=== PATIENT | male | born 1955 | race Caucasian/White ===

== ENCOUNTER 2020-10-25 14:10 | Inpatient (IN) ==
[2020-10-25] MEDS ORDERED: DEXAMETHASONE SOD INJ 10 MG/ML VIAL IV ONE (14:37)
--- NOTE | 2020-10-25 15:09 | XRay Report ---
SINGLE VIEW CHEST CLINICAL HISTORY: Hypoxia. Covid. FINDINGS: An AP, portable, upright chest radiograph is compared to study dated 11/09/2013. The heart i s enlarged. Interstitial airspace consolidation is seen throughout both lungs. No large pleural effus ion or pneumothorax is seen. The bony thorax is grossly intact. IMPRESSION: Interstitial airspace consolidation is seen throughout both lungs. This is consistent wit h the reported history of a viral pneumonia. Clinical correlation will be required and radiographic f ollow-up to resolution is recommended. ACT 112: Negative or not required by law. Electronically signed by: Kevyn Rodriguez M.D. 10/25/2020 3:08 PM
[2020-10-25 15:30] LABS: Basophils # (auto) 0.01 K/uL (0-0.2); Basophils % (auto) 0.1 %; Hematocrit (blood only) 46.8 % (42-52); Hemoglobin 16.2 g/dL (14.0-18.0); Immature Granulocytes # (auto) 0.09 K/uL (0.00-0.02); Immature Granulocytes % (auto) 1.1 %; Lymphocytes % (auto) 14.2 %; Mean Corpuscular Hemoglobin 30.9 pg (25-34); Mean Corpuscular Hgb Conc 34.6 g/dL (32-36); Mean Corpuscular Volume 89.1 fL (80-100); Mean Platelet Volume 10.8 fL (7.4-10.4); Monocytes # (auto) 1.32 K/uL (0.11-0.59); Monocytes % (auto) 15.6 %; Neutrophils # (auto) 5.86 K/uL (1.4-6.5); Platelet Count 218 K/uL (130-400); RDW Coefficient of Variation 15.2 % (11.5-14.5); RDW Standard Deviation 49.7 fL (36.4-46.3); Red Blood Count 5.25 M/uL (4.7-6.1); White Blood Count 8.48 K/uL (4.8-10.8)
[2020-10-25 15:33] LABS: Base Excess VBG 2.7 mEq/L; Oxygen Saturation VBG 63.4 %; pH VBG 7.38 (7.36-7.41)
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
[2020-10-25 15:49] LABS: Alanine Aminotransferase 55 U/L (12-78); Albumin Level 2.8 gm/dl (3.4-5.0); Aspartate Aminotransferase 58 U/L (15-37); Blood Urea Nitrogen 13 mg/dl (7-18); C Reactive Protein 9.24 mg/dl (0-0.29); Carbon Dioxide 26 mmol/L (21-32); Chloride 101 mmol/L (98-107); Creatinine Clr Calc Pharmacy 103.9 ml/min; D Dimer 1380 ug/L FEU (0-500); Est GFR (African American) 94.7; Est GFR (Non-African American) 81.7; Glucose 99 mg/dl (70-99); Potassium 3.8 mmol/L (3.5-5.1); Sodium 135 mmol/L (136-145)
[2020-10-25 15:53] LABS: Albumin Globulin Ratio 0.5 (0.9-2); Alkaline Phosphatase 67 U/L (45-117); Bilirubin,Total 0.6 mg/dl (0.2-1); Globulin 5.1 gm/dl (2.5-4.0); Total Protein 7.9 gm/dl (6.4-8.2); Troponin I < 0.015 ng/ml (0-0.045)
[2020-10-25] MEDS ORDERED: ALBUT/IPRATROP 3MG/0.5MG NEB 3 ML VIAL NEB ONE (15:57)
[2020-10-25] MEDS: MAGNESIUM SULFATE / D5W 1 GM/100 ML BAG IV SCH ×2 (16:13→16:14)
[2020-10-25 16:47] LABS: iSTAT Arterial Blood Gas HCO3 25 meg/L (19-24); iSTAT Arterial Blood Gas pCO2 40 mmHg (35-46); iSTAT Arterial Blood Gas pO2 73 mmHg (80-95); iSTAT Carbon Dioxide 26 mmol/L (24-31)
--- NOTE | 2020-10-25 17:06 | Electrocardiogram Report ---
Test Reason : Blood Pressure : / mmHG Vent. Rate : 100 BPM Atrial Rate : 100 BPM P-R Int : 156 ms QRS Dur : 142 ms QT Int : 380 ms P-R-T Axes : 053 036 020 degrees QTc Int : 490 ms Sinus rhythm with occasional Premature ventricular complexes Right bundle branch block Abnormal ECG When compared with ECG of 26-MAY-2019 05:46, Premature ventricular complexes are now Present Confirmed by Daniel Torres ([id number]) on 10/25/2020 5:06:03 PM Referred By: Confirmed By:Daniel Torres
[2020-10-25 17:10] LABS: Influenza A virus by PCR Negative (Neg); Influenza B virus by PCR Negative (Neg); RSV by PCR Negative (Neg)
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
[2020-10-25] MEDS ORDERED: FUROSEMIDE 40 MG/4 ML VIAL IV ONE (17:44)
[2020-10-25 17:53] LABS: SARS CoV2 RNA(COVID-19) InHosp POSITIVE (Negative)
[2020-10-25] MEDS ORDERED: DEXAMETHASONE SOD INJ 4 MG/ML VIAL IV STA (18:10)
[2020-10-25] MEDS ORDERED: FUROSEMIDE 40 MG/4 ML VIAL IV STA (18:11)
[2020-10-25] MEDS ORDERED: LORazepam 0.5 MG/1 ML VIAL IV STA (18:45)
[2020-10-25 18:57] LABS: iSTAT Arterial Blood Gas HCO3 26 meg/L (19-24); iSTAT Arterial Blood Gas pCO2 41 mmHg (35-46); iSTAT Arterial Blood Gas pO2 52 mmHg (80-95); iSTAT Carbon Dioxide 27 mmol/L (24-31); iSTAT Hematocrit 50 % (42-52); iSTAT Potassium 3.8 mmol/L (3.3-5.0); iSTAT Sodium 136 mmol/L (135-144)
[2020-10-25] MEDS ORDERED: ALBUT/IPRATROP 3MG/0.5MG NEB 3 ML VIAL NEB SCH (19:00)
[2020-10-25] MEDS ORDERED: OPTIRAY 320 125ml IV ONE (19:41)
--- NOTE | 2020-10-25 20:02 | CT Scan Report ---
CT angio chest PE protocol CT DOSE: 654.39 mGycm HISTORY: 65 years-old Male with covid+, hypoxic, elevated dimer. Acute hypoxia with shortness of br eath and elevated d-dimer level. COVID Positive. TECHNIQUE: Multiple CTA images of the chest were obtained after the intravenous administration of 116 ml Optiray 320. Coronal and sagittal MIPS were obtained from the axial data set and were submitted for review. All measurements were obtained according to NASCET criteria. A dose lowering technique w as utilized adhering to the principles of ALARA. COMPARISON: Chest radiograph of same day and also 11/09/2013 FINDINGS: CTA: The heart is normal in size. There is no pericardial effusion. Mild coronary artery calcifications. T here is no thoracic aortic aneurysm or dissection. There is patency of the imaged great vessels. Refl ux of contrast into the IVC and hepatic veins. Respiratory motion artifact limits evaluation of the s egmental and subsegmental branches of the pulmonary artery. No filling defects identified to suggest thromboembolic disease. CT CHEST: Unremarkable thyroid. Prominent and enlarged mediastinal and hilar lymph nodes are present with pretr acheal lymph nodes measuring up to 1.4 cm and right hilar lymph nodes measuring up to 1.6 cm. No pneu mothorax or pleural effusion. Moderate to severe emphysema. Patchy subpleural prominent groundglass a nd mild subpleural consolidative opacities are noted bilaterally in a mid and lower lung zone promine nt distribution. Bronchial wall thickening suggests associated bronchitis. The central airways appear patent. There are a few prominent periesophageal and gastrohepatic lymph nodes are nonspecific. Hepatic steat osis. Unremarkable soft tissues. The bones appear intact without acute fracture. IMPRESSION: 1. No evidence of pulmonary emboli. 2. Bilateral subpleural predominant groundglass and consolidative opacities suggest multifocal likely viral pneumonia. 3. Mediastinal and hilar adenopathy is likely reactive. 4. No pleural effusion. 5. Emphysema. 6. Hepatic steatosis. ACT 112: Negative or not required by law. The above report was generated using voice recognition software. It may contain grammatical, syntax o r spelling errors. Electronically signed by: Iraj Cardenas M.D. 10/25/2020 8:00 PM
[2020-10-25] MEDS ORDERED: POLYETHYLENE (MIRALAX) 17 GM PACK PO PRN (20:24)
[2020-10-25] MEDS ORDERED: ONDANSETRON INJ 2 MG/ML 2 ML VIAL IV PRN (20:24)
[2020-10-25] MEDS ORDERED: ICU PROTOCOL FOR HYPERGLYCEMIA PRN (20:24)
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
[2020-10-25] MEDS ORDERED: REMDESIVIR 200 MG in SODIUM CHLORIDE 0.9% 210 ML IV ONE (20:45)
[2020-10-25] MEDS ORDERED: PNEUMOCOCCAL ADMINISTRATION CHARGE ONE (20:51)
[2020-10-25] MEDS ORDERED: PNEUMOCOCCAL POLYSACCHARIDES 25 MCG/0.5 ML VIAL/SYR IM ONE (20:51)
[2020-10-25] MEDS ORDERED: ALBUT/IPRATROP 3MG/0.5MG NEB 3 ML VIAL NEB PRN (21:28)
[2020-10-25] MEDS ORDERED: POTASSIUM CHLORIDE 20 MEQ/15 ML UDC PO STA (21:29)
[2020-10-25] MEDS: NORMOSOL-R 1,000 ML IV SCH (21:31)
[2020-10-25] MEDS: ENOXAPARIN 80 MG/0.8 ML SYR SQ SCH (21:48)
[2020-10-25] MEDS ORDERED: SODIUM CHLORIDE 0.9% 10ML FLUSH IV SCH (22:45)
[2020-10-26 05:52] LABS: BUN Creatinine Ratio 15.5 (10-20); Calcium 8.2 mg/dl (8.5-10.1); Est GFR (African American) 105.5; Potassium 4.4 mmol/L (3.5-5.1)
[2020-10-26 06:08] LABS: Phosphorus 4.1 mg/dl (2.5-4.9); Thyroid Stimulating Hormone 1.64 uIu/ml (0.300-4.500)
--- NOTE | 2020-10-26 07:03 | Critical Care Progress Note ---
Date of Service October 26, 2020 Assessment & Plan (1) Admitted to intensive care unit: 65 y/o male w/ hx of COPD and YOBANY presents to the ICU evening of 10/25 for acute hypoxic respiratory failure from COVID-19 pneumonia because he is a low threshold for decompensation which would require intubation. Neuro - [facility] ICU: neg. No acute change from mental status baseline. Cardiac - NSR on monitor, no history of cardiac disease. Continue telemetry. Troponin negative, BNP within normal limits. 10/25 ECG cardiology interpretation: NSR 100 w/ occasional PVCs. RBBB. QTC 490. Compared to 05/2019, the PVCs are new. Respiratory - Acute hypoxic respiratory failure: Covid 19+, 8 to 9-day symptom onset. Initial PaO2 72 on high flow nasal cannula--> 57, so switched to BIPAP, initially at 16/10 70 FiO2. 10/26 0700: 20/8 80 FiO2, satting 93% (uptrended from 85% sat at since 0141). 10/25 POC ABG. 7.40/41/52/26 base excess 1.0. no ventilation issues per blood gas -per admission provider, CTA negative for PE, bilateral subpleural predominant groundglass and consolidative opacities suggest multifocal like viral pneumonia. Emphysema noted. -Nebs as needed -Continue with 6 mg IV dexamethasone daily regimen. -Patient encouraged to self prone as tolerated, will attempt later today -daily CXRs -vitamin C 500 mg BID -Strict I's and O's with goal of negative fluid balance. -Continuous monitoring on pulse ox, maintain oxygen saturation 88 to 92%. GI - 3/3 switched from NPO to clear liquids RENAL/LYTES - 3/3 bmp wnl. Na 135->138. K 3.8->4.4. Cr 0.98->0.89. A1C 6.9. Corrected Ca 9.2. Will replete electrolytes as needed Normosol at 50 mL/h while NPO s/p 40 mg IV lasix 3/2 - Strict I's and O's. Voiding. ENDO - No history of diabetes or thyroid disease ICU hyperglycemic protocol, SSI TSH 1.640 wnl HEME - 3/3 cbc wnl, continue routine monitoring 3/2 d dimer 1380H, likely 2/2 covid ID - COVID-19patient with 8 days of symptoms and COVID-19 PCR positive - will continue dexamethasone 6mg IV - as of 10/26, patient is 9 days since symptom onset. via shared-decision making after discussion of pros/cons w/ patient, will not be using remdesevir Influenza A and B and RSV negative MRSA screen neg 10/25 procalc 0.05, wnl. Blood cultures pending abx if spikes fever no sputum culture obtained because patient not producing; his cough is dry CT imaging more consistent with viral inflammation, and low suspicion for bacterial infection given normal WBC, afebrile. CRP (9.24H) and D-dimer elevated consistent with COVID-19 infection. LINES/IV ACCESS - Peripheral IVs DVT PROPHYLAXIS - SCDs, Lovenox 70 mg q12 CODE: full (2) Sleep apnea: (3) Acute respiratory failure with hypoxia: (4) Pneumonia due to COVID-19 virus: (5) COPD mixed type: Admission and Anticipated Discharge Date Admission Date: October 25, 2020 Supervising Physician Co-Signing Physician Notes Dr. Nguyễn was resident physician during care of patient. I separately evaluated patient for montoya portions of the history and the exam. I was present during the critical portion of medical decision making, and I discussed the case with the resident. I generally agree with the findings and plan. During my evaluation the patient was largely asymptomatic, he was short of breath when he would stand at the side of the bed and urinate. He is now agreeable with intubation should it be needed however he wants that to be the last option. Accordingly I believe if the patient is unable to tolerate eating due to exertional dyspnea that will be the clear clinical indication for intubation. I advised the patient that I would suggest intubation at this time however he prefers to continue with noninvasive therapies. I have personally spent 55 minutes of critical care time in the direct management of this patient. This is a life/limb threatening event. This includes time spent evaluating patient, direct bedside care, chart review, placing orders, interpretation of diagnostic studies, discussion with consultants, patient, and/or family members regarding treatment decisions, as well as other required patient management activities. This time is exclusive of all separately billable procedures, and teaching time and separate from and in addition to any other critical care service time. Subjective Per nurse and admission provider, patient was admitted to ICU last night after he did not tolerate high flow nasal cannula after going to [facility]. He was then placed on BiPAP and sent to ICU for further care. Patient has had 8-9 days of symptoms and tested covid +.Hx of HTN, HLD, anxiety, bipolar, YOBANY (noncompliant w/ cpap), and COPD (smoker and noncompliant / not taking inhalers). Patient instructed to self-prone as able, but this is limited by habitus and what appears to be fluid retention (has not been worked up for CHF). 09 update: patient tolerated hfnc for 15 min, but then desatted to 80s after he fell asleep. He was then switched to cpap 12 80%. 1000: I entered room and discussed w/ patient via shared decision making regarding use of remdesivir. He states his symptoms started 9 days ago, on 09/16. I explained the prox/cons of redemsivir and patient states that he does not want to receive it if it will not help. I reiterated that the clinical trials did not show mortality benefit and that there may be some benefit in terms of symptoms in some patients, but that we are limited by the current data available. He reaffirmed that he does not want the remdesivir. Review of Systems Review of Systems: Please see attending exam for ROS. I did not enter room because of covid airborne precautions. Constitutional: Denies fever, chills Eyes: Denies blurry vision, vision changes Cardiovascular: Denies Chest pain, palpitations Respiratory: Denies shortness of breath Gastrointestinal: Denies abdominal pain, nausea, vomiting Genitourinary: Denies dysuria Neurological: Denies headache, numbness, tingling, focal weakness Physical Exam Physical Exam: General: Grossly A&O. NAD. Cooperative. HEENT: Atraumatic, normocephalic. Pulm: Diffuse inspiratory crackles. Symmetrical chest rise. No respiratory distress. Wearing cpap mask. Cardiac: RRR, -mrg. Puffy appearance of ankles, but no pitting edema. Abdominal: Moderately distended, soft, and nontender to palpation. Results & Data Results & Data ([facility]) Vital Signs (Past 12 Hours) Vital Signs Temp Pulse Pulse Resp BP Pulse Ox 10/26/20 04:22 80 20 91 10/26/20 02:36 36.7 C 10/26/20 02:30 83 20 89 L 10/26/20 02:11 89 19 132/97 87 L 10/26/20 02:00 79 15 87 L 10/26/20 01:41 83 12 136/85 85 L 10/26/20 01:30 82 15 91 10/26/20 01:11 84 15 137/88 90 10/26/20 01:00 93 H 19 88 L 10/26/20 00:41 82 20 116/80 91 10/26/20 00:30 88 17 93 10/26/20 00:11 82 16 127/86 94 10/26/20 00:00 86 19 92 10/25/20 23:41 82 19 142/88 H 87 L 10/25/20 23:33 86 19 87 L 10/25/20 23:30 84 16 87 L 10/25/20 23:11 91 H 18 148/99 H 92 10/25/20 23:00 90 18 92 10/25/20 22:42 79 17 88 L 10/25/20 22:41 85 15 139/77 87 L 10/25/20 22:30 84 16 93 10/25/20 22:11 89 18 137/87 91 10/25/20 22:07 98 H 20 141/84 H 89 L 10/25/20 22:05 94 H 22 171/110 H 89 L 10/25/20 22:00 96 H 17 88 L 10/25/20 21:41 88 26 H 171/109 H 90 10/25/20 21:30 91 H 16 89 L 10/25/20 21:11 100 H 28 H 152/97 H 93 10/25/20 21:04 94 H 14 131/97 88 L 10/25/20 21:00 100 H 20 92 10/25/20 20:30 97 H 18 88 L 10/25/20 20:26 35.9 C L 99 H 25 H 90 10/25/20 20:24 98 H 10/25/20 20:15 97 H 22 147/92 H 90 10/25/20 20:11 98 H 26 H 147/92 H 90 10/25/20 20:05 101 H 22 92 10/25/20 19:05 102 H 22 92 10/25/20 19:00 102 H 32 H 120/81 86 L 10/25/20 18:30 103 H 29 H 134/76 88 L Resident Activity Tracking Resident Involvement: Resident Care Provided Care Provided: Adult Hospital Medicine
[2020-10-26 07:05] LABS: Basophils # (auto) 0.02 K/uL (0-0.2); Basophils % (auto) 0.3 %; Hemoglobin 16.4 g/dL (14.0-18.0); Immature Granulocytes # (auto) 0.09 K/uL (0.00-0.02); Immature Granulocytes % (auto) 1.2 %; Lymphocytes # (auto) 0.85 K/uL (1.2-3.4); Lymphocytes % (auto) 11.7 %; Mean Corpuscular Hemoglobin 30.8 pg (25-34); Mean Corpuscular Hgb Conc 33.5 g/dL (32-36); Mean Corpuscular Volume 91.9 fL (80-100); Mean Platelet Volume 10.8 fL (7.4-10.4); Monocytes # (auto) 1.06 K/uL (0.11-0.59); Monocytes % (auto) 14.6 %; Neutrophils # (auto) 5.23 K/uL (1.4-6.5); Neutrophils % (auto) 72.2 %; Nucleated RBC # (auto) 0.04 K/uL (0-0); Nucleated RBC % (auto) 0.5 %; Platelet Count 210 K/uL (130-400); RDW Coefficient of Variation 15.4 % (11.5-14.5); RDW Standard Deviation 51.8 fL (36.4-46.3); Red Blood Count 5.33 M/uL (4.7-6.1); White Blood Count 7.25 K/uL (4.8-10.8)
[2020-10-26 07:21] LABS: Estimated Average Glucose 151 mg/dl; Hemoglobin A1C 6.9 % (4.5-5.6)
[2020-10-26] MEDS: ENOXAPARIN 80 MG/0.8 ML SYR SQ SCH ×2 (08:03→20:28)
[2020-10-26] MEDS: dexAMETHasone 6 MG in SYRINGE 0 ML IV SCH (08:03)
[2020-10-26] MEDS ORDERED: GLUCAGON FOR INJ 1 MG VIAL IM PRN (10:00)
[2020-10-26] MEDS ORDERED: GLUCOSE 40% GEL 15 GM TUBE PO PRN (10:00)
[2020-10-26] MEDS ORDERED: DEXTROSE 50% 50 ML SYRINGE IV PRN (10:00)
[2020-10-26] MEDS ORDERED: GLUCOSE 10 TABS/TUBE PO PRN (10:00)
[2020-10-26] MEDS ORDERED: CARBOHYDRATES FOR HYPOGLYCEMIA PO PRN (10:00)
--- NOTE | 2020-10-26 10:16 | Hospitalist Progress Note ---
Date of Service October 26, 2020 Assessment & Plan (1) Pneumonia due to COVID-19 virus: Went to see his PCP for a Covid test and noted to have very low saturation and was sent in the emergency room COVID-19 test came back positive Remains very hypoxic and requiring high flow oxygen to maintain barely normal saturation Continue remdesivir and dexamethasone (2) Acute respiratory failure with hypoxia: Requiring high flow and BIPAP Has been requiring high flow oxygen to maintain saturation History of sleep apnea and not been compliant with any medications and/or CPAP (3) COPD exacerbation: History of COPD and is noncompliant Continues to smoke and has not been taking any medication We will continue with intravenous dexamethasone and nebulized bronchodilator (4) Sleep apnea: History of sleep apnea and is noncompliant with CPAP (5) Hearing deficit: Has hearing deficit DVT prophylaxis Lovenox subcu CODE STATUS Full Labs checked ROS-No Headache, No Visual Changes, No Nausea, No Vomiting, No Fever, No Chills, No Neck Pain or Stiffness, No Chest Pain, No Palpitations, + SOB, + HANSEN, + Cough, No Sputum, No Wheezing, No Abdominal Pain, No Diarrhea, No Hematemesis, No Hemoptysis, No Unexpected Weight Loss, No Flank pain, No Melena, No Hematochezia, No Frequency, No Urgency, No Burning, No Hematuria, No Rashes, No Diaphoresis. Appetite is Normal Physical Exam Gen-AAO x 3, NAD, Afebrile, obese Head-NCAT, EOMI, PERRLA, Anicteric Sclera, No Posterior Pharyngeal Erythema Neck-Supple, No JVD, No Thyromegaly, No Masses, No LAD, No Bruits Lungs-Clear to Auscultation Bilaterally, No Rales, No Rhonchi, No Wheezing, No Crepitus Chest-No S4, +S1, +S2, No S3, No Murmurs, No Rubs, No Gallops, No Ectopy Abdomen-Soft, Bowel Sounds Present, Non Tender, Non Distended, No Hepatomegaly, No Splenomegaly, No Palpable Masses, No Rebound, No Rigidity, No Guarding Musculoskeletal-Full Range of Motion Bilaterally, No CVAT Extremities-No Cyanosis, No Clubbing, No Edema Nuero-Cranial Nerves II-XII grossly intact, Motor WNL, DTRs WNL, Strength WNL, Non Focal Psych-Normal Mood Admission and Anticipated Discharge Date Admission Date: October 25, 2020 Results & Data Results & Data ([facility]) Vital Signs (Past 12 Hours) Vital Signs Temp Pulse Pulse Resp BP Pulse Ox 10/26/20 09:25 76 17 90 10/26/20 09:00 80 22 89 L 10/26/20 08:53 82 13 90 10/26/20 08:42 84 21 154/84 H 86 L 10/26/20 08:30 82 18 93 10/26/20 08:12 73 15 132/86 95 10/26/20 08:00 36.9 C 78 15 94 10/26/20 07:42 85 19 131/86 89 L 10/26/20 07:30 78 21 92 10/26/20 07:12 79 18 131/91 91 10/26/20 07:05 78 23 92 10/26/20 07:00 74 15 90 10/26/20 04:22 80 20 91 10/26/20 02:36 36.7 C 10/26/20 02:30 83 20 89 L 10/26/20 02:11 89 19 132/97 87 L 10/26/20 02:00 79 15 87 L 10/26/20 01:41 83 12 136/85 85 L 10/26/20 01:30 82 15 91 10/26/20 01:11 84 15 137/88 90 10/26/20 01:00 93 H 19 88 L 10/26/20 00:41 82 20 116/80 91 10/26/20 00:30 88 17 93 10/26/20 00:11 82 16 127/86 94 10/26/20 00:00 86 19 92 10/25/20 23:41 82 19 142/88 H 87 L 10/25/20 23:33 86 19 87 L 10/25/20 23:30 84 16 87 L 10/25/20 23:11 91 H 18 148/99 H 92 10/25/20 23:00 90 18 92 10/25/20 22:42 79 17 88 L 10/25/20 22:41 85 15 139/77 87 L 10/25/20 22:30 84 16 93 10/25/20 22:11 89 18 137/87 91
--- NOTE | 2020-10-26 12:51 | Billing Data ---
Date of Service October 26, 2020 Coding Level of Care Code Critical Care ea addt'l 30 min
[2020-10-26] MEDS: INSULIN ASPART 100 UNITS/ML 3 ML PEN SC SCH ×3 (12:52→20:27)
[2020-10-26] MEDS: NORMOSOL-R 1,000 ML IV SCH (16:02)
[2020-10-26] MEDS ORDERED: REMDESIVIR 100 MG in SODIUM CHLORIDE 0.9% 230 ML IV SCH (20:00)
[2020-10-26] MEDS: ASCORBIC ACID 500 MG TAB PO SCH (20:28)
[2020-10-27 06:05] LABS: Basophils # (auto) 0.01 K/uL (0-0.2); Basophils % (auto) 0.1 %; Eosinophils # (auto) 0.01 K/uL (0-0.5); Eosinophils % (auto) 0.1 %; Hematocrit (blood only) 48.5 % (42-52); Hemoglobin 16.2 g/dL (14.0-18.0); Immature Granulocytes # (auto) 0.08 K/uL (0.00-0.02); Immature Granulocytes % (auto) 0.9 %; Lymphocytes # (auto) 1.49 K/uL (1.2-3.4); Lymphocytes % (auto) 16.1 %; Mean Corpuscular Hemoglobin 30.8 pg (25-34); Mean Corpuscular Hgb Conc 33.4 g/dL (32-36); Mean Corpuscular Volume 92.2 fL (80-100); Monocytes # (auto) 1.05 K/uL (0.11-0.59); Monocytes % (auto) 11.4 %; Neutrophils # (auto) 6.59 K/uL (1.4-6.5); Neutrophils % (auto) 71.4 %; Platelet Count 197 K/uL (130-400); RDW Coefficient of Variation 15.4 % (11.5-14.5); Red Blood Count 5.26 M/uL (4.7-6.1); White Blood Count 9.23 K/uL (4.8-10.8)
[2020-10-27 06:35] LABS: BUN Creatinine Ratio 19.8 (10-20); Calcium 8.6 mg/dl (8.5-10.1); Creatinine Clr Calc Pharmacy 116.6 ml/min; Est GFR (African American) 106.5; Est GFR (Non-African American) 91.9; Magnesium 2.8 mg/dl (1.8-2.4); Potassium 4.4 mmol/L (3.5-5.1)
[2020-10-27 06:41] LABS: Phosphorus 2.8 mg/dl (2.5-4.9)
--- NOTE | 2020-10-27 06:41 | Hospitalist Progress Note ---
Date of Service October 27, 2020 Assessment & Plan (1) Pneumonia due to COVID-19 virus: Went to see his PCP for a Covid test and noted to have very low saturation and was sent in the emergency room COVID-19 test came back positive Continue remdesivir and dexamethasone (2) Acute respiratory failure with hypoxia: Requiring high flow while awake and BIPAP when asleep History of sleep apnea and not been compliant with any medications and/or CPAP (3) COPD exacerbation: History of COPD and is noncompliant Continues to smoke and has not been taking any medication We will continue with intravenous dexamethasone and nebulized bronchodilator (4) Sleep apnea: History of sleep apnea and is noncompliant with CPAP (5) Hearing deficit: Has hearing deficit DVT prophylaxis Lovenox subcu CODE STATUS Full Labs checked ROS-No Headache, No Visual Changes, No Nausea, No Vomiting, No Fever, No Chills, No Neck Pain or Stiffness, No Chest Pain, No Palpitations, + SOB, + HANSEN, + Cough, + Thick yellow Sputum, No Wheezing, No Abdominal Pain, No Diarrhea, No Hematemesis, No Hemoptysis, No Unexpected Weight Loss, No Flank pain, No Melena, No Hematochezia, No Frequency, No Urgency, No Burning, No Hematuria, No Rashes, No Diaphoresis. Appetite is Normal Physical Exam Gen-AAO x 3, NAD, Afebrile, obese Head-NCAT, EOMI, PERRLA, Anicteric Sclera, No Posterior Pharyngeal Erythema Neck-Supple, No JVD, No Thyromegaly, No Masses, No LAD, No Bruits Lungs-Clear to Auscultation Bilaterally, No Rales, No Rhonchi, No Wheezing, No Crepitus Chest-No S4, +S1, +S2, No S3, No Murmurs, No Rubs, No Gallops, No Ectopy Abdomen-Soft, Bowel Sounds Present, Non Tender, Non Distended, No Hepatomegaly, No Splenomegaly, No Palpable Masses, No Rebound, No Rigidity, No Guarding Musculoskeletal-Full Range of Motion Bilaterally, No CVAT Extremities-No Cyanosis, No Clubbing, No Edema Nuero-Cranial Nerves II-XII grossly intact, Motor WNL, DTRs WNL, Strength WNL, Non Focal Psych-Normal Mood Admission and Anticipated Discharge Date Admission Date: October 25, 2020 Results & Data Results & Data ([facility]) Vital Signs (Past 12 Hours) Vital Signs Temp Pulse Resp BP Pulse Ox 10/27/20 06:35 80 20 127/89 92 10/27/20 05:15 82 20 168/109 H 93 10/27/20 05:10 36.7 C 10/27/20 04:15 69 15 155/100 H 92 10/27/20 03:15 66 14 154/87 H 94 10/27/20 03:01 71 16 92 10/27/20 02:15 71 14 144/99 H 92 10/27/20 01:15 76 17 151/100 H 91 10/27/20 00:57 36.4 C L 10/27/20 00:15 71 15 143/94 H 92 10/27/20 00:00 67 10/26/20 23:15 74 15 144/93 H 94 10/26/20 23:10 70 18 93 10/26/20 22:15 71 16 146/102 H 93 10/26/20 21:15 79 18 132/86 92 10/26/20 21:07 36.4 C L 10/26/20 20:15 83 22 129/81 86 L 10/26/20 19:15 69 15 111/84 91 10/26/20 19:12 69 12 125/83 91 10/26/20 19:05 77 20 93
--- NOTE | 2020-10-27 07:55 | Billing Data ---
Date of Service October 27, 2020 Coding Level of Care Code Critical Care 1st - mins
--- NOTE | 2020-10-27 07:55 | Critical Care Progress Note ---
Date of Service October 27, 2020 Assessment & Plan (1) Admitted to intensive care unit: 65 y/o male w/ hx of COPD and YOBANY presents to the ICU evening of 10/25 for acute hypoxic respiratory failure from COVID-19 pneumonia because he is a low threshold for decompensation which would require intubation. Neuro - [facility] ICU: neg per Attending exam; patient is conversational and at mental baseline. Cardiac - NSR on monitor, no history of cardiac disease. Continue telemetry. Troponin negative, BNP within normal limits. 10/25 ECG cardiology interpretation: NSR 100 w/ occasional PVCs. RBBB. QTC 490. Compared to 05/2019, the PVCs are new. HTN: 10/26-10/27 overnight had some elevated BPs 140s-150s / 90s-100s. 1 spike to 168/109 Respiratory - Acute hypoxic respiratory failure: Covid 19+, 8 to 9-day symptom onset. Initial PaO2 72 on high flow nasal cannula--> 57, so switched to BIPAP, initially at 16/10 70 FiO2. 10/27 0836 on HFNC 100% O2. 10/25 POC ABG. 7.40/41/52/26 base excess 1.0. no ventilation issues per blood gas. 10/27 no new blood gas obtained. -per admission provider, CTA negative for PE, bilateral subpleural predominant groundglass and consolidative opacities suggest multifocal like viral pneumonia. Emphysema noted. -Nebs as needed -Continue with 6 mg IV dexamethasone daily regimen. -vitamin C 500 mg BID -Strict I's and O's with goal of negative fluid balance. -Continuous monitoring on pulse ox, maintain oxygen saturation 88 to 92%. GI - 10/26 switched from NPO to clear liquids RENAL/LYTES - -10/27 wbc 7.25->9.23. bmp wnl. Cr 0.87, stable. phos 4.1->2.8. Mg 3.0->2.8 Normosol at 50 mL/h while NPO - Strict I's and O's. Voiding. Is/Os 24 hours: 1.6L in 2L out. UOP 0.60 ml/kg/hr (voiding). cumulative 1.7L in, 3.2L out ENDO - No history of diabetes or thyroid disease ICU hyperglycemic protocol, SSI TSH 1.640 wnl HEME - 10/26 cbc wnl, continue routine monitoring 10/25 d dimer 1380H, likely 2/2 covid ID - COVID-19patient with 8 days of symptoms and COVID-19 PCR positive - will continue dexamethasone 6mg IV - as of 10/26, patient is 9 days since symptom onset. via shared-decision making after discussion of pros/cons w/ patient, will not be using remdesevir Influenza A and B and RSV negative. MRSA screen neg 10/25 procalc 0.05, wnl. 10/25 BC prelim NG 24 hrs - 10/27 cxr pending abx if spikes fever 10/26 no sputum culture obtained because patient not producing; his cough is dry CT imaging more consistent with viral inflammation, and low suspicion for shalom terial infection given normal WBC, afebrile. CRP (9.24H) and D-dimer elevated consistent with COVID-19 infection. LINES/IV ACCESS - Peripheral IVs DVT PROPHYLAXIS - SCDs, Lovenox 70 mg q12 CODE: full DISPO: continue ICU care (2) Sleep apnea: (3) Acute respiratory failure with hypoxia: (4) Pneumonia due to COVID-19 virus: (5) COPD mixed type: Admission and Anticipated Discharge Date Admission Date: October 25, 2020 Supervising Physician Co-Signing Physician Notes Dr. Nguyễn was resident physician during care of patient. I separately evaluated patient for montoya portions of the history and the exam. I was present during the critical portion of medical decision making, and I discussed the case with the resident. I generally agree with the findings and plan. Patient had no overnight events, still able to eat without being symptomatic. Tolerated CPAP overnight continue current therapies, patient is resolute in avoiding intubation unless absolutely necessary. Continue with negative pressure isolation given Covid positivity and continued symptomatology. Patient was discussed on multidisciplinary rounds. Patient remains critically ill. Subjective Patient tolerated cpap overnight. 18 85% (up from 12 100% around 0100). He was not proned. HE was switched to HFNC 100% O2 at ~0730. Hx obtained from overnight nurse. Resident did not enter room because of covid airborne isolation precautions. Per attending note, patient wants to avoid intubation as long as possible. Review of Systems Review of Systems: ROS limited because resident did not enter room because of covid airborne isolation precautions. Please see attending documentation. Physical Exam Physical Exam: Physical exam limited because resident did not enter room because of covid airborne isolation precautions. Please see attending docume ntation. Results & Data Results & Data ([facility]) Vital Signs (Past 12 Hours) Vital Signs Temp Pulse Resp BP Pulse Ox 10/27/20 06:35 80 20 127/89 92 10/27/20 05:15 82 20 168/109 H 93 10/27/20 05:10 36.7 C 10/27/20 04:15 69 15 155/100 H 92 10/27/20 03:15 66 14 154/87 H 94 10/27/20 03:01 71 16 92 10/27/20 02:15 71 14 144/99 H 92 10/27/20 01:15 76 17 151/100 H 91 10/27/20 00:57 36.4 C L 10/27/20 00:15 71 15 143/94 H 92 10/27/20 00:00 67 10/26/20 23:15 74 15 144/93 H 94 10/26/20 23:10 70 18 93 10/26/20 22:15 71 16 146/102 H 93 10/26/20 21:15 79 18 132/86 92 10/26/20 21:07 36.4 C L 10/26/20 20:15 83 22 129/81 86 L 10/26/20 19:15 69 15 111/84 91 10/26/20 19:12 69 12 125/83 91 10/26/20 19:05 77 20 93 Critical Care Time Critical Care Time: Yes Total Critical Care Time: 45
[2020-10-27] MEDS: dexAMETHasone 6 MG in SYRINGE 0 ML IV SCH (08:02)
[2020-10-27] MEDS: ASCORBIC ACID 500 MG TAB PO SCH ×2 (08:02→21:36)
[2020-10-27] MEDS: ENOXAPARIN 80 MG/0.8 ML SYR SQ SCH ×2 (08:02→21:36)
[2020-10-27] MEDS: INSULIN ASPART 100 UNITS/ML 3 ML PEN SC SCH ×4 (08:09→21:47)
--- NOTE | 2020-10-27 09:33 | XRay Report ---
SINGLE VIEW CHEST CLINICAL HISTORY: Covid pneumonia. FINDINGS: An AP, portable, upright chest radiograph is compared to study dated 10/25/2020. The heart is mildly enlarged. Emphysema and chronic interstitial thickening is similar to previous. Multifocal in terstitial airspace consolidations again seen throughout both lungs, greatest at the lung bases. No l arge pleural effusion or pneumothorax is seen. The bony thorax is grossly intact. IMPRESSION: 1. Cardiomegaly and emphysema. 2. Multifocal airspace consolidation is consistent with the reported history of a viral pneumonia. Th is is similar in appearance to yesterday. ACT 112: Negative or not required by law. Electronically signed by: Kevyn Rodriguez M.D. 10/27/2020 9:32 AM
[2020-10-27] MEDS: NORMOSOL-R 1,000 ML IV SCH (12:12)
[2020-10-28 06:44] LABS: Basophils # (auto) 0.02 K/uL (0-0.2); Basophils % (auto) 0.2 %; Eosinophils # (auto) 0.02 K/uL (0-0.5); Eosinophils % (auto) 0.2 %; Hematocrit (blood only) 48.6 % (42-52); Hemoglobin 16.2 g/dL (14.0-18.0); Immature Granulocytes # (auto) 0.06 K/uL (0.00-0.02); Immature Granulocytes % (auto) 0.6 %; Lymphocytes # (auto) 1.11 K/uL (1.2-3.4); Lymphocytes % (auto) 10.9 %; Mean Corpuscular Hemoglobin 30.3 pg (25-34); Mean Corpuscular Hgb Conc 33.3 g/dL (32-36); Mean Corpuscular Volume 90.8 fL (80-100); Mean Platelet Volume 10.3 fL (7.4-10.4); Monocytes # (auto) 1.07 K/uL (0.11-0.59); Monocytes % (auto) 10.5 %; Neutrophils # (auto) 7.94 K/uL (1.4-6.5); Neutrophils % (auto) 77.6 %; Platelet Count 269 K/uL (130-400); RDW Coefficient of Variation 15.3 % (11.5-14.5); RDW Standard Deviation 51.1 fL (36.4-46.3); Red Blood Count 5.35 M/uL (4.7-6.1); White Blood Count 10.22 K/uL (4.8-10.8)
[2020-10-28 07:10] LABS: Calcium 8.6 mg/dl (8.5-10.1); Creatinine Clr Calc Pharmacy 130.9 ml/min; Est GFR (African American) 111.9; Est GFR (Non-African American) 96.6; Magnesium 2.5 mg/dl (1.8-2.4); Phosphorus 2.6 mg/dl (2.5-4.9); Potassium 4.1 mmol/L (3.5-5.1)
[2020-10-28] MEDS: ENOXAPARIN 80 MG/0.8 ML SYR SQ SCH ×2 (07:33→21:13)
[2020-10-28] MEDS: NORMOSOL-R 1,000 ML IV SCH (07:35)
[2020-10-28] MEDS: dexAMETHasone 6 MG in SYRINGE 0 ML IV SCH (07:35)
--- NOTE | 2020-10-28 07:36 | Critical Care Progress Note ---
Date of Service October 28, 2020 Assessment & Plan (1) Admitted to intensive care unit: 65 y/o male w/ hx of COPD and YOBANY presents to the ICU evening of 10/25 for acute hypoxic respiratory failure from COVID-19 pneumonia because he is a low threshold for decompensation which would require intubation. Neuro - - [facility] ICU: resident did not enter patient room. see attending exam. Cardiac - - NSR on monitor, no history of cardiac disease. Continue telemetry. - Troponin negative, BNP within normal limits. 10/25 ECG cardiology interpretation: NSR 100 w/ occasional PVCs. RBBB. QTC 490. Compared to 05/2019, the PVCs are new. - HTN: 10/27-10/28 140s-150s overnight over 90s to low 100s. max of 162/115 at 2239. 110/79 at 0616. Respiratory - - Acute hypoxic respiratory failure: Covid 19+, 8 day symptom onset at presentation. Initial PaO2 72 on high flow nasal cannula--> 57, so switched to BIPAP, initially at 16/10 70 FiO2. 10/28 on HFNC 60L 100%. Overnight was CPAP pressure 18 100%. - 10/25 POC ABG. 7.40/41/52/26 base excess 1.0. no ventilation issues per blood gas. 10/27 no new blood gas obtained. -per admission provider, CTA negative for PE, bilateral subpleural predominant groundglass and consolidative opacities suggest multifocal like viral pneumonia. Emphysema noted. -Nebs as needed -Continue with 6 mg IV dexamethasone daily regimen. -vitamin C 500 mg BID -Strict I's and O's with goal of negative fluid balance. -Continuous monitoring on pulse ox, maintain oxygen saturation 88 to 92%. -Encourage proning. 10/28 his overall status is about the same, slightly improved (satting 92-93 on HFNC). GI - 3/ switched from NPO to clear liquids. / switched to regular diet, minced/moist consistency. RENAL/LYTES - - / bmp wnl. Cr stable. 0.87->0.77. Ca, phos wnl, lower limit of normal. Mg 2.5 - 3/ d/c'd Normosol 50 mL/hr. 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 Will monitor creatinine. - - Strict I's and O's. Voiding. As of 10/28 AM, Is/Os 24 hours: 1.6L in 2L out. cumulative 4.3L in 5.2L out. ENDO - - No history of diabetes or thyroid disease - ICU hyperglycemic protocol, SSI - TSH 1.640 wnl HEME - - 10/28 CBC reviewed. H/H stable, Hb 16.2. - 10/25 d dimer 1380H, likely 2/2 covid ID - - COVID-19patient with 8 days of symptoms and COVID-19 PCR positive - will continue dexamethasone 6mg IV - as of 10/26, patient is 9 days since symptom onset. via shared-decision making after discussion of pros/cons w/ patient, will not be using remdesivir - Influenza A and B and RSV negative. MRSA screen neg - 10/25 procalc 0.05, wnl. 10/25 BC prelim NG 24 hrs - 10/28 cxr per radiology: slight progression of the bilateral opacities. 10/27 cxr: multifocal airspace consolidation, relatively unchanged from 10/25. Cardiomegaly and emphysema. - abx if spikes fever. 10/27-10/28 overnight: afebrile - 10/26 no sputum culture obtained because patient not producing; his cough is dry - CT imaging at admission more consistent with viral inflammation, and low suspicion for bacterial infection given normal WBC, afebrile. CRP (9.24H) and D-dimer elevated consistent with COVID-19 infection. LINES/IV ACCESS - Peripheral IVs DVT PROPHYLAXIS - SCDs, Lovenox 70 mg q12 CODE: full DISPO: continue ICU care (2) Sleep apnea: (3) Acute respiratory failure with hypoxia: (4) Pneumonia due to COVID-19 virus: (5) COPD mixed type: Admission and Anticipated Discharge Date Admission Date: October 25, 2020 Supervising Physician Co-Signing Physician Notes Dr. Nguyễn was resident physician during care of patient. I separately evaluated patient for montoya portions of the history and the exam. I was present during the critical portion of medical decision making, and I discussed the case with the resident. I generally agree with the findings and plan. Patient remains critically ill and requires high flow nasal cannula oxygen as well as noninvasive ventilation. If his oxygen requirements could decrease we could consider home oxygen therapy but he still requires a concentration greater than what can be supplied as an outpatient and that he is very much at risk for acute respiratory failure requiring intubation mechanical ventilation. Subjective Per nursing, patient tolerated CPAP entire night. Pressure of 18. 100% FiO2. He has been satting mid 90s when lying on side and mid-upper 80s when supine. He also had some BP elevations overnight. PO intake has been small amounts, last PO intake was last night. He tolerated 1.5 hours of proning yesterday afternoon. This morning, transitioned to HFNC 60L 100%. Resident did not enter room because of covid airborne isolation precautions. See attending note. Review of Systems Review of Systems: Resident did not enter room because of covid airborne isolation precautions. See attending note for ROS. Physical Exam Physical Exam: Resident did not enter room because of covid airborne isolation precautions. See attending note for physical exam. Results & Data Results & Data ([facility]) Vital Signs (Past 12 Hours) Vital Signs Temp Pulse Resp BP Pulse Ox 10/28/20 06:16 98 H 23 110/79 98 10/28/20 05:15 85 18 142/83 H 98 10/28/20 04:15 91 H 23 141/87 H 93 10/28/20 03:29 36.4 C L 10/28/20 03:26 90 19 152/81 H 96 10/28/20 02:50 78 15 94 10/28/20 02:15 90 18 155/99 H 94 10/28/20 01:16 74 17 143/82 H 93 10/28/20 01:04 36.4 C L 10/28/20 00:58 88 21 121/73 93 10/28/20 00:16 87 21 168/106 H 95 10/27/20 23:43 79 10/27/20 23:01 82 18 170/102 H 94 10/27/20 22:39 82 21 162/115 H 93 10/27/20 22:15 74 18 152/111 H 85 L 10/27/20 21:15 78 16 150/103 H 88 L 10/27/20 20:38 75 17 140/91 88 L 10/27/20 20:33 79 17 90 10/27/20 20:15 81 19 156/104 H 92 10/27/20 19:31 37.0 C 81 10/27/20 19:15 78 21 144/94 H 85 L Critical Care Time Critical Care Time: Yes Total Critical Care Time: 35 Resident Activity Tracking Resident Involvement: Resident Care Provided Care Provided: [facility] [place] [facility]
[2020-10-28] MEDS: INSULIN ASPART 100 UNITS/ML 3 ML PEN SC SCH ×4 (08:07→21:27)
--- NOTE | 2020-10-28 08:43 | Hospitalist Progress Note ---
Date of Service October 28, 2020 Assessment & Plan (1) Pneumonia due to COVID-19 virus: Went to see his PCP for a Covid test and noted to have very low saturation and was sent in the emergency room COVID-19 test came back positive Continue remdesivir and dexamethasone (2) Acute respiratory failure with hypoxia: Requiring high flow while awake and BIPAP when asleep, May need intubation today History of sleep apnea and not been compliant with any medications and/or CPAP (3) COPD exacerbation: History of COPD and is noncompliant Continues to smoke and has not been taking any medication We will continue with intravenous dexamethasone and nebulized bronchodilator (4) Sleep apnea: History of sleep apnea and is noncompliant with CPAP (5) Hearing deficit: Has hearing deficit DVT prophylaxis Lovenox subcu CODE STATUS Full Labs checked ROS-No Headache, No Visual Changes, No Nausea, No Vomiting, No Fever, No Chills, No Neck Pain or Stiffness, No Chest Pain, No Palpitations, + SOB, + HANSEN, + Cough, +Thick yellow Sputum, No Wheezing, No Abdominal Pain, No Diarrhea, No Hematemesis, No Hemoptysis, No Unexpected Weight Loss, No Flank pain, No Melena, No Hematochezia, No Frequency, No Urgency, No Burning, No Hematuria, No Rashes, No Diaphoresis. Appetite is Normal Physical Exam Gen-AAO x 3, NAD, Afebrile, obese Head-NCAT, EOMI, PERRLA, Anicteric Sclera, No Posterior Pharyngeal Erythema Neck-Supple, No JVD, No Thyromegaly, No Masses, No LAD, No Bruits Lungs-Clear to Auscultation Bilaterally, No Rales, No Rhonchi, No Wheezing, No Crepitus Chest-No S4, +S1, +S2, No S3, No Murmurs, No Rubs, No Gallops, No Ectopy Abdomen-Soft, Bowel Sounds Present, Non Tender, Non Distended, No Hepatomegaly, No Splenomegaly, No Palpable Masses, No Rebound, No Rigidity, No Guarding Musculoskeletal-Full Range of Motion Bilaterally, No CVAT Extremities-No Cyanosis, No Clubbing, No Edema Nuero-Cranial Nerves II-XII grossly intact, Motor WNL, DTRs WNL, Strength WNL, Non Focal Psych-Normal Mood Admission and Anticipated Discharge Date Admission Date: October 25, 2020 Results & Data Results & Data ([facility]) Vital Signs (Past 12 Hours) Vital Signs Temp Pulse Pulse Resp BP Pulse Ox 10/28/20 08:00 37.1 C 104 H 101 H 21 88 L 10/28/20 07:16 93 H 17 139/74 92 10/28/20 07:00 88 16 92 10/28/20 06:16 98 H 23 110/79 98 10/28/20 05:15 85 18 142/83 H 98 10/28/20 04:15 91 H 23 141/87 H 93 10/28/20 03:29 36.4 C L 10/28/20 03:26 90 19 152/81 H 96 10/28/20 02:50 78 15 94 10/28/20 02:15 90 18 155/99 H 94 10/28/20 01:16 74 17 143/82 H 93 10/28/20 01:04 36.4 C L 10/28/20 00:58 88 21 121/73 93 10/28/20 00:16 87 21 168/106 H 95 10/27/20 23:43 79 10/27/20 23:01 82 18 170/102 H 94 10/27/20 22:39 82 21 162/115 H 93 10/27/20 22:15 74 18 152/111 H 85 L 10/27/20 21:15 78 16 150/103 H 88 L
--- NOTE | 2020-10-28 09:11 | XRay Report ---
XR chest 1V portable CLINICAL HISTORY: covid pneumonia COMPARISON STUDY: Chest CT October 25, 2020. Chest radiograph October 27, 2020. FINDINGS: No pneumothorax or pleural effusion is noted. Emphysema is present. Cardiomediastinal silho uette is stable. Interstitial thickening and bilateral opacities have slightly progressed. There is n o lobar consolidation. There is no evidence for pneumomediastinum. IMPRESSION: Slight progression of interstitial thickening and bilateral opacities suggestive of an in fectious process. ACT 112: Negative or not required by law. Electronically signed by: Girma León M.D. 10/28/2020 9:10 AM
[2020-10-28] MEDS: ASCORBIC ACID 500 MG TAB PO SCH ×2 (13:40→21:13)
[2020-10-29 04:56] LABS: Basophils # (auto) 0.01 K/uL (0-0.2); Basophils % (auto) 0.1 %; Eosinophils # (auto) 0.02 K/uL (0-0.5); Eosinophils % (auto) 0.2 %; Hematocrit (blood only) 50.4 % (42-52); Hemoglobin 16.9 g/dL (14.0-18.0); Immature Granulocytes # (auto) 0.08 K/uL (0.00-0.02); Immature Granulocytes % (auto) 0.7 %; Lymphocytes # (auto) 1.05 K/uL (1.2-3.4); Lymphocytes % (auto) 9.5 %; Mean Corpuscular Hemoglobin 30.7 pg (25-34); Mean Corpuscular Hgb Conc 33.5 g/dL (32-36); Mean Corpuscular Volume 91.6 fL (80-100); Mean Platelet Volume 10.2 fL (7.4-10.4); Monocytes # (auto) 1.27 K/uL (0.11-0.59); Monocytes % (auto) 11.5 %; Neutrophils # (auto) 8.57 K/uL (1.4-6.5); Platelet Count 253 K/uL (130-400); RDW Coefficient of Variation 15.2 % (11.5-14.5); RDW Standard Deviation 51.3 fL (36.4-46.3)
[2020-10-29 05:14] LABS: BUN Creatinine Ratio 20.7 (10-20); Calcium 8.7 mg/dl (8.5-10.1); Creatinine Clr Calc Pharmacy 136.3 ml/min; Est GFR (African American) 113.8; Est GFR (Non-African American) 98.2; Magnesium 2.5 mg/dl (1.8-2.4); Potassium 4.5 mmol/L (3.5-5.1)
[2020-10-29 05:36] LABS: Phosphorus 3.2 mg/dl (2.5-4.9)
--- NOTE | 2020-10-29 06:40 | Hospitalist Progress Note ---
Date of Service October 29, 2020 Assessment & Plan (1) Pneumonia due to COVID-19 virus: Went to see his PCP for a Covid test and noted to have very low saturation and was sent in the emergency room COVID-19 test came back positive Continue remdesivir and dexamethasone (2) Acute respiratory failure with hypoxia: Currently on CPAP History of sleep apnea and not been compliant with any medications and/or CPAP He will be intubated today per CC Team, Low threshold for trach, Prone (3) COPD exacerbation: History of COPD and is noncompliant Continues to smoke and has not been taking any medication We will continue with intravenous dexamethasone and nebulized bronchodilator (4) Sleep apnea: History of sleep apnea and is noncompliant with CPAP (5) Hearing deficit: Has hearing deficit DVT prophylaxis Lovenox subcu CODE STATUS Full Labs checked ROS-No Headache, No Visual Changes, No Nausea, No Vomiting, No Fever, No Chills, No Neck Pain or Stiffness, No Chest Pain, No Palpitations, + SOB, + HANSEN, + Cough, + Sputum, No Wheezing, No Abdominal Pain, No Diarrhea, No Hematemesis, No Hemoptysis, No Unexpected Weight Loss, No Flank pain, No Melena, No Hematochezia, No Frequency, No Urgency, No Burning, No Hematuria, No Rashes, No Diaphoresis. Appetite is Normal Physical Exam Gen-AAO x 3, NAD, Afebrile, obese Head-NCAT, EOMI, PERRLA, Anicteric Sclera, No Posterior Pharyngeal Erythema Neck-Supple, No JVD, No Thyromegaly, No Masses, No LAD, No Bruits Lungs-Clear to Auscultation Bilaterally, No Rales, No Rhonchi, No Wheezing, No Crepitus Chest-No S4, +S1, +S2, No S3, No Murmurs, No Rubs, No Gallops, No Ectopy Abdomen-Soft, Bowel Sounds Present, Non Tender, Non Distended, No Hepatomegaly, No Splenomegaly, No Palpable Masses, No Rebound, No Rigidity, No Guarding Musculoskeletal-Full Range of Motion Bilaterally, No CVAT Extremities-No Cyanosis, No Clubbing, No Edema Nuero-Cranial Nerves II-XII grossly intact, Motor WNL, DTRs WNL, Strength WNL, Non Focal Psych-Normal Mood Admission and Anticipated Discharge Date Admission Date: October 25, 2020 Results & Data Results & Data ([facility]) Vital Signs (Past 12 Hours) Vital Signs Temp Pulse Resp BP Pulse Ox 10/29/20 06:16 102 H 20 124/84 92 10/29/20 05:16 87 17 151/92 H 94 10/29/20 04:16 87 15 123/64 89 L 10/29/20 03:16 91 H 15 115/69 91 10/29/20 02:47 112 H 19 94 10/29/20 02:16 99 H 15 113/65 94 10/29/20 01:52 36.5 C 10/29/20 01:16 94 H 18 117/79 90 10/29/20 00:16 79 19 117/75 91 10/28/20 23:29 92 H 20 91 10/28/20 23:16 90 17 109/72 90 10/28/20 23:00 93 H 10/28/20 22:16 90 16 125/75 90 10/28/20 21:24 93 H 23 119/82 89 L 10/28/20 20:53 93 H 21 96 10/28/20 20:24 93 H 24 145/99 H 93 10/28/20 19:33 36.8 C 92 H 10/28/20 19:16 88 17 154/99 H 93
--- NOTE | 2020-10-29 06:43 | Critical Care Progress Note ---
Date of Service October 29, 2020 Assessment & Plan (1) Admitted to intensive care unit: 65 y/o male w/ hx of COPD and YOBANY presents to the ICU evening of 10/25 for acute hypoxic respiratory failure from COVID-19 pneumonia because he is a low threshold for decompensation which would require intubation. Neuro - - [facility] ICU: negative. examined prior to intubation. Cardiac - - Mostly NSR on monitor w/ occasional periods of tachycardia ~100 BPM. No history of cardiac disease. Continue telemetry. - Troponin negative, BNP within normal limits. 10/25 ECG cardiology interpretation: NSR 100 w/ occasional PVCs. RBBB. QTC 490. Compared to 05/2019, the PVCs are new. - HTN:He has had periods ~100 HR overnight. BPs mostly normotensive 110s-120s/70s-80s. He had 140s-150s/100 in the evening and intermittently. Respiratory - - Acute hypoxic respiratory failure: Covid 19+, 8 day symptom onset at presentat ion. Initial PaO2 72 on high flow nasal cannula--> 57, so switched to BIPAP, initially at 16/10 70 FiO2. 10/28-10/29 overnight CPAP: pressure 18 100%. Sats ~90. - 10/25 POC ABG. 7.40/41/52/26 base excess 1.0. no ventilation issues per blood gas. -per admission provider, CTA negative for PE, bilateral subpleural predominant groundglass and consolidative opacities suggest multifocal like viral pneumonia. Emphysema noted. -Nebs as needed -Continue with 6 mg IV dexamethasone daily regimen. -vitamin C 500 mg BID -Continuous monitoring on pulse ox. -10/28 ~930AM: intubated and sedated because of patient's overall progressive declining in respiratory status. Proned since ~1030AM. Vent settings: PRVC. RR 20. Tidal volume 420. PEEP 20. FiO2 100. GI - 10/26 switched from NPO to clear liquids. 10/27 switched to regular diet, minced/moist consistency. RENAL/LYTES - - electrolytes reviewed, wnl. Mg 2.5H, stable - 10/28 d/c'd Normosol 50 mL/hr. prefer to keep tray drier. Cr stable 0.74 (10/29). - - Strict I's and O's w. goal of neg fluid balance. [place] since 10/27. As of 10/29 AM, 24 hrs Is/Os 1.4L in 2.4L out. 0.75 ml/kg/hr. Cumulative 4.7L in 7.6L out. ENDO - - No history of diabetes or thyroid disease - ICU hyperglycemic protocol, SSI - TSH 1.640 wnl HEME - - 10/29 CBC reviewed. H/H 16.9/50.4%, stable - 10/25 d dimer 1380H, likely / covid ID - - COVID-19patient with 8 days of symptoms and COVID-19 PCR positive - Slight leukocytosis. WBC curve 8.48 (10/25)->10.22 (10/28)->11.00H (10/29) - as of 10/26, patient is 9 days since symptom onset. via shared-decision making after discussion of pros/cons w/ patient, will not be using remdesivir - Influenza A and B and RSV negative. MRSA screen neg - 10/25 procalc 0.05, wnl. 10/25 BC prelim NG 48 hrs - 10/28 cxr per radiology: slight progression of the bilateral opacities. 10/27 cxr: multifocal airspace consolidation, relatively unchanged from 10/25. Cardiomegaly and emphysema. - 10/29 cxr: Persistent bilateral interstitial pulmonary opacities. - abx if spikes fever. 10/28-10/29 overnight: afebrile - 10/26 no sputum culture obtained because patient not producing; his cough is dry - CT imaging at admission more consistent with viral inflammation, and low suspicion for bacterial infection given normal WBC, afebrile. CRP (9.24H) and D-dimer elevated consistent with COVID-19 infection. LINES/IV ACCESS - Peripheral IVs, [place] DVT PROPHYLAXIS - SCDs, Lovenox 70 mg q12 CODE: full DISPO: continue ICU care (2) Sleep apnea: (3) Acute respiratory failure with hypoxia: (4) Pneumonia due to COVID-19 virus: (5) COPD mixed type: Admission and Anticipated Discharge Date Admission Date: October 25, 2020 Supervising Physician Co-Signing Physician Notes Dr. Nguyễn was resident physician during care of patient. I separately evaluated patient for montoya portions of the history and the exam. I was present during the critical portion of medical decision making, and I discussed the case with the resident. I generally agree with the findings and plan. Patient has feeling of impending doom, increasing cough and further desaturations necessitating intubation and mechanical ventilation. We discussed need for tracheostomy if the patient gets to 7 days and beyond and he was agreeable with that. He is also agreeable with central venous access and arterial line placement. He is also agreeable with bronchoscopy. I updated the patient's , I am cautiously optimistic that he should improve with aggressive pulmonary hygiene. Patient will be under neuromuscular blockade for 24 to 72 hours and we will initiate pronation therapy. Patient now has a right subclavian placed 3/6 and a right radial arterial line placed 3/6. Hospital day 5 Intubation day 1 Subjective He had a brief coughing spell overnight w/ desat down to 70s, otherwise his oxygen saturations have been ~90 supine, better while on side. He was on his side 1 hour each x 4 times. The patient passed 1 normal BM. He has been on CPAP 18 100% the entire night and had not been able to tolerate high flow nasal cannula or eating yesterday. Resident initially did not enter room because of covid airborne isolation precautions, but was present during intubation at a later time. Review of Systems Review of Systems: See HPI and attending note. No complaints in AM. He has since been intubated. ROS limited by sedation. Physical Exam Physical Exam: General: A&Ox3. NAD. Cooperative. HEENT: Atraumatic, normocephalic. Pulm: CTAB anteriorly. -wheezes, -rales, -rhonchi. Wearing high flow nasal cannula. Cardiac: RRR, -mrg. Results & Data Results & Data ([facility]) Vital Signs (Past 12 Hours) Vital Signs Temp Pulse Resp BP Pulse Ox 10/29/20 06:16 102 H 20 124/84 92 10/29/20 05:16 87 17 151/92 H 94 10/29/20 04:16 87 15 123/64 89 L 10/29/20 03:16 91 H 15 115/69 91 10/29/20 02:47 112 H 19 94 10/29/20 02:16 99 H 15 113/65 94 10/29/20 01:52 36.5 C 10/29/20 01:16 94 H 18 117/79 90 10/29/20 00:16 79 19 117/75 91 10/28/20 23:29 92 H 20 91 10/28/20 23:16 90 17 109/72 90 10/28/20 23:00 93 H 10/28/20 22:16 90 16 125/75 90 10/28/20 21:24 93 H 23 119/82 89 L 10/28/20 20:53 93 H 21 96 10/28/20 20:24 93 H 24 145/99 H 93 10/28/20 19:33 36.8 C 92 H 10/28/20 19:16 88 17 154/99 H 93 Critical Care Time Critical Care Time: Yes Total Critical Care Time: 65 Resident Activity Tracking Resident Involvement: Resident Care Provided Care Provided: Adult Hospital Medicine
[2020-10-29] MEDS ORDERED: SODIUM CHLORIDE 0.9% INJ 10 ML VIAL IV ONE (07:21)
[2020-10-29] MEDS ORDERED: ETOMIDATE 2 MG/ML 20 ML VIAL IV ONE (07:21)
[2020-10-29] MEDS ORDERED: SODIUM CHLORIDE 0.9% 2.5 ML FLUSH IV ONE (07:21)
[2020-10-29] MEDS ORDERED: VECURONIUM BROMIDE 10 MG VIAL IV ONE (07:21)
[2020-10-29] MEDS ORDERED: SUCCINYLCHOLINE CHLORIDE 20 MG/ML 10 ML VIAL IV ONE (07:21)
[2020-10-29] MEDS ORDERED: SODIUM CHLORIDE 0.9% 10ML FLUSH IV ONE (07:21)
--- NOTE | 2020-10-29 08:01 | Billing Data ---
Date of Service October 28, 2020 Coding Level of Care Code Critical Care 1st - mins
--- NOTE | 2020-10-29 08:03 | XRay Report ---
XR chest 1V portable HISTORY: , Pneumonia. Shortness of breath. COMPARISON: Chest 10/28/2020. FINDINGS: No pneumothorax. No pleural effusions. The heart is normal in size. There is mild emphysema . There are low lung volumes, unchanged. Diffuse interstitial thickening and hazy bilateral airspace opacities are not significantly changed. IMPRESSION: No change in the diffuse interstitial thickening and hazy bilateral airspace opacities consistent wit h a viral pneumonia. ACT 112: Negative or not required by law. Electronically signed by: Jimmie Foster M.D. 10/29/2020 8:01 AM
[2020-10-29] MEDS: ENOXAPARIN 80 MG/0.8 ML SYR SQ SCH ×2 (08:04→19:21)
[2020-10-29] MEDS: ASCORBIC ACID 500 MG TAB PO SCH ×2 (08:04→19:21)
[2020-10-29] MEDS: dexAMETHasone 6 MG in SYRINGE 0 ML IV SCH (08:05)
[2020-10-29] MEDS ORDERED: PROPOFOL IV EMULSION 10 MG/ML 100 ML VIAL IV ONE (09:04)
[2020-10-29] MEDS ORDERED: CISATRACURIUM BESYLATE IV SOLN 2 MG/ML 10 ML VIAL IV STA (09:16)
[2020-10-29] MEDS ORDERED: STAT IV Infusion **Titration per Protocol STA (09:16)
[2020-10-29] MEDS ORDERED: PROPOFOL BOLUS FROM BAG IV PRN (09:16)
[2020-10-29] MEDS ORDERED: ACETAMINOPHEN 325 MG TAB PO PRN (09:16)
[2020-10-29] MEDS ORDERED: RAPID SEQUENCE INDUCTION BAG ONE (09:24)
[2020-10-29] MEDS: fentaNYL DRIP 1,250 MCG/250 ML BAG IV SCH ×2 (09:45→19:20)
[2020-10-29] MEDS: CISATRACURIUM BESYLATE 40 MG in 0.9 % SODIUM CHLORIDE 80 ML IV SCH ×2 (10:00→16:40)
[2020-10-29] MEDS ORDERED: CARBOHYDRATES FOR HYPOGLYCEMIA PO PRN (10:24)
[2020-10-29] MEDS ORDERED: GLUCAGON FOR INJ 1 MG VIAL SQ PRN (10:24)
[2020-10-29] MEDS ORDERED: GLUCOSE 40% GEL 15 GM TUBE PO PRN (10:24)
[2020-10-29] MEDS ORDERED: GLUCOSE 10 TABS/TUBE PO PRN (10:24)
[2020-10-29] MEDS ORDERED: DEXTROSE 50% 50 ML SYRINGE IV PRN (10:24)
[2020-10-29] MEDS ORDERED: dexAMETHasone 20 MG in SYRINGE 0 ML IV SCH (10:30)
--- NOTE | 2020-10-29 10:32 | XRay Report ---
XR chest 1V portable CLINICAL HISTORY: Respiratory failure COMPARISON STUDY: 10/29/2020 FINDINGS: There is an endotracheal tube 5.7 cm above the lolita. There is a right internal jugular ce ntral venous catheter which projects over the superior vena cava. There is no pneumothorax. There is an enteric tube which passes into the stomach. The heart is normal in size. There are persistent bila teral interstitial pulmonary opacities, consistent with the clinical history of a viral pneumonia.[ IMPRESSION: 1. Interval placement of an endotracheal tube and enteric tube and right subclavian central venous ca theter. 2. Persistent bilateral interstitial pulmonary opacities ACT 112: Negative or not required by law. Electronically signed by: Dharmesh Cardenas M.D. 10/29/2020 10:31 AM
--- NOTE | 2020-10-29 10:51 | Procedure Note ---
Procedure Note Date of Service October 29, 2020 Procedure Date: Noted above Procedure: Endotracheal intubation Pre-procedure Diagnosis: COVID-19 related acute hypoxic respiratory failure Post-procedure Diagnosis: same as above Prior to Procedure: Informed Consent: Risks and benefits were discussed with the patient and informed consent was verbalized Attending Staff: Sen Skaggs DO The identity of the patient was confirmed and a bedside time out was performed. Description of Procedure: Patient was evaluated and required intubation for impending respiratory failure. The patient was prepared in the usual fashion. A MAC 3 laryngoscope was used. A 8 mm inner diameter endotrachial tube was placed endotracheally to 26 cm at the gum ridge. A grade 1 view was obtained. The endotracheal tube was noted to pass through the vocal cords. Chest rise was bilateral. Bilateral breath sounds were heard without air sounds in the abdomen. Mist was noted in the endotracheal tube. End-tidal CO2 measurement was positive. Chest x-ray shows proper endotracheal tube placement. Complications: Oxygen saturation reached a high of 87% after the procedure he dipped to 81 and slowly recovered into the high 80s again Findings: Not applicable Specimens: Not applicable Estimated blood loss: Zero Coding CPT Codes Resuscitation - Resuscitation: 28488 Endotracheal Intubation, emergency ([id number]) [facility] [place] Procedure Codes (Charges) Resuscitation Resuscitation: [id number] Endotracheal Intubation, emergency
--- NOTE | 2020-10-29 10:52 | Procedure Note ---
Procedure Note Date of Service October 29, 2020 Procedure date: Noted above Procedure: Central venous access Pre-procedure indication: Need for vasoactive medication administration Post-procedure Diagnosis: same as above Prior to Procedure: Informed Consent: The risks, benefits, indications, potential complications, and alternatives were explained to the patient and informed consent obtained. Attending Staff: Sen Skaggs DO Resident/APC: Go Skin Prep: Chlorhexidine Anesthesia: 4 mL 1% lidocaine without epinephrine The identity of the patient was confirmed and a bedside time out was performed. Description of Procedure: After sterile prep and sterile drape utilizing standard sterile technique the superficial skin of the right subclavian area was anesthetized. The target vessel was identified and entered with an 18-gauge needle. Dark venous blood return was noted. A guidewire was inserted through the needle and into the vessel. The needle was withdrawn and a skin rob was made. A tissue dilator was advanced via Seldinger technique and removed. A triple lumen catheter was inserted via Seldinger technique and the guidewire removed. All ports brian and flushed easily. A Biopatch was placed, and the catheter was secured via silk suture. A sterile dressing was then applied. Complications: None Estimated blood loss: Trace Patient tolerated the procedure well. Chest x-ray impression: Successful central venous access placement Coding CPT Codes Tubes, Drains, and Vasc Access - Tubes, Drains, and Vasc Access: [id number] Insertion Of Non-tunneled Catheter Age 7 Yrs> ([id number]) [facility] [place], [place] Procedure Codes (Charges) Tubes, Drains, and Vasc Access Procedure 1: Tubes, Drains, and Vasc Access: [id number] Insertion Of Non-tunneled Catheter Age 7 Yrs>
--- NOTE | 2020-10-29 10:53 | Procedure Note ---
Procedure Note Date of Service October 29, 2020 Procedure date: Noted above Procedure: Radial artery cannulation Pre-procedure Diagnosis: Need for invasive monitoring, hypotension/frequent blood draws Post-procedure Diagnosis: same as above Prior to Procedure: Informed Consent: The risks, benefits, indications, potential complications, and alternatives were explained to the patient and informed consent obtained. Attending Staff: Sen Skaggs DO Skin Prep: Chlorhexidine Anesthesia: 3 mL 1% lidocaine without epinephrine The identity of the patient was confirmed and a bedside time out was performed. Description of Procedure: After sterile prep and sterile drape utilizing standard sterile technique the superficial skin of the right radial artery was anesthetized. The target artery was identified via dynamic ultrasound guidance and entered with a 20-gauge arrow Angiocath. Pulsatile bright red blood return was noted. Via modified Seldinger technique the self-contained guidewire was advanced and the Angiocath advanced over the guidewire. The guidewire was removed and brisk arterial blood return was noted. The pressure monitor was connected, and the arterial line was secured via commercial securement device. A sterile dressing was then applied. Complications: None Estimated blood loss: Trace Patient tolerated the procedure well. Coding CPT Codes Tubes, Drains, and Vasc Access - Tubes, Drains, and Vasc Access: [id number] Place Catheter In Artery ([id number]) [facility] [place] Procedure Codes (Charges) Tubes, Drains, and Vasc Access Procedure 1: Tubes, Drains, and Vasc Access: [id number] Place Catheter In Artery
--- NOTE | 2020-10-29 11:01 | Billing Data ---
Date of Service October 29, 2020 Coding Level of Care Code Critical Care 09 24- mins
[2020-10-29] MEDS: propofoL 1,000 MG/100 ML VIAL IV SCH ×5 (11:56→22:26)
[2020-10-29] MEDS: PEPTAMEN INTENSE VHP 1.0 CAL 1,000 ML BAG GT SCH (11:58)
[2020-10-29] MEDS: POLYETHYLENE (MIRALAX) 17 GM PACK PO SCH (11:58)
[2020-10-29] MEDS: dexAMETHasone 20 MG in DEXTROSE 5% 25 ML IV SCH (11:59)
[2020-10-29] MEDS: INSULIN ASPART 100 UNITS/ML 3 ML PEN SC SCH ×4 (11:59→19:57)
--- NOTE | 2020-10-30 00:05 | Procedure Note ---
Procedure Note Date of Service October 30, 2020 Procedure: Arterial Line Placement Attending: Dr. Skaggs APC: Wm Russo PA-C Indication: Monitoring on Pressors Anesthesia: Lidocaine 1% Consent was signed and placed on the chart prior to procedure. Indication, risks, and benefits were explained at length. A time-out was completed verifying correct patient, procedure, site, positioning, and implant(s) or special equipment if applicable. Allens test was performed to ensure adequate perfusion. Patients LEFT wrist was prepped and draped in the usual sterile fashion. Ultrasound guidance was used to aid needle placement. A 20g Arrow arterial line was introduced into the LEFT artery. Catheter was threaded, and the needle was removed with appropriate blood return. Good waveform was observed. The patient tolerated the procedure well. Confirmation of placement with ultrasound. Blood Loss: Minimal Complications: None Procedural Ultrasound Guidance: Procedure Date: 10/30/2020 Indication: ABGs, Pressors Attending: Dr. Skaggs APC: Wm Russo PA-C Artery Identified: YES Line confirmed in Artery with ultrasound: YES Complications: NONE Patient tolerated procedure: WELL Coding CPT Codes Tubes, Drains, and Vasc Access - Tubes, Drains, and Vasc Access: [id number] Place Catheter In Artery ([id number]) [facility] [place] Codes (Charges) Tubes, Drains, and Vasc Access Procedure 1: Tubes, Drains, and Vasc Access: [id number] Place Catheter In Artery
[2020-10-30] MEDS: propofoL 1,000 MG/100 ML VIAL IV SCH ×13 (01:03→22:50)
[2020-10-30] MEDS: CISATRACURIUM BESYLATE 40 MG in 0.9 % SODIUM CHLORIDE 80 ML IV SCH ×5 (01:37→22:21)
[2020-10-30 05:26] LABS: Basophils # (auto) 0.01 K/uL (0-0.2); Basophils % (auto) 0.1 %; Hematocrit (blood only) 48.4 % (42-52); Hemoglobin 15.5 g/dL (14.0-18.0); Immature Granulocytes # (auto) 0.13 K/uL (0.00-0.02); Immature Granulocytes % (auto) 1.2 %; Lymphocytes # (auto) 0.95 K/uL (1.2-3.4); Lymphocytes % (auto) 9.1 %; Mean Corpuscular Hemoglobin 29.9 pg (25-34); Mean Corpuscular Volume 93.4 fL (80-100); Mean Platelet Volume 10.4 fL (7.4-10.4); Monocytes # (auto) 0.92 K/uL (0.11-0.59); Monocytes % (auto) 8.8 %; Neutrophils # (auto) 8.44 K/uL (1.4-6.5); Neutrophils % (auto) 80.8 %; Platelet Count 236 K/uL (130-400); RDW Standard Deviation 52.3 fL (36.4-46.3); Red Blood Count 5.18 M/uL (4.7-6.1); White Blood Count 10.45 K/uL (4.8-10.8)
[2020-10-30 05:48] LABS: BUN Creatinine Ratio 31.4 (10-20); Calcium 7.5 mg/dl (8.5-10.1); Creatinine Clr Calc Pharmacy 175.5 ml/min; Est GFR (African American) 126.7; Est GFR (Non-African American) 109.3; Magnesium 2.4 mg/dl (1.8-2.4); Phosphorus 3.2 mg/dl (2.5-4.9)
[2020-10-30 06:17] LABS: iSTAT Art Bld Gas pCO2 Correct 59 mmHg (35-46); iSTAT Art Bld Gas pH Corrected 7.299 (7.35-7.45); iSTAT Arterial Blood Gas HCO3 29 meg/L (19-24); iSTAT Arterial Blood Gas pCO2 61 mmHg (35-46); iSTAT Arterial Blood Gas pH 7.29 (7.35-7.45); iSTAT Arterial Blood Gas pO2 49 mmHg (80-95); iSTAT Arterial Blood Gas pO2 C 46; iSTAT Carbon Dioxide 31 mmol/L (24-31); iSTAT FiO2 50 %; iSTAT Hematocrit 52 % (42-52); iSTAT Hemoglobin 17.7 g/dl (14.0-18.0); iSTAT Potassium 4.7 mmol/L (3.3-5.0); iSTAT Site Art Line; iSTAT Sodium 140 mmol/L (135-144)
--- NOTE | 2020-10-30 06:35 | Communication Note ---
Date of Service: October 30, 2020 Procedure: Supination Maneuver Attending: Dr. Skaggs APC: Wm Russo PA-C Indication: Requiring lung recruitment intervention in the setting of advanced ARDS with poor lung compliance and oxygenation on standard ventilator settings. Patient requiring supination in the setting of advanced ARDS per imaging, ventilator requirements, and calculated P:F ratio. Appropriate staff was assembled including myself, Respiratory Therapy, and Nursing Staff. A time-out was completed verifying correct patient, time from recent pronation/supination, current ventilator settings, review of any prior issues during pronation/supination maneuvers. Patient was fully undressed as to be able to view all current IV sites, central venous access sites, arterial lines, endotracheal tube, Benites catheter, etc. After properly identifying/securing all lines, tubes, etc., the patient was ``papoosed using flat sheets. On my count, the patient was slid to the edge of the bed. After reevaluating all lines, tubes, etc., the patient was then placed on their side allowing for RT to maintain control of ET tube and ready for completion of Supination maneuver. Final check of all lines, tubes, etc. was completed by myself and nursing staff. Blood pressure, heart rhythm, and oxygen saturations were monitored for several minutes s/p maneuver. Discussion was held with patients RN and RT regarding ongoing management. Patient tolerated maneuver well. No immediate complications were noted. TIME SUPINE: 0600 I have personally spent 20 minutes of critical care time in the direct management of this patient. This is a life/limb threatening event. This includes time spent evaluating patient, direct bedside care, chart review, placing orders, interpretation of diagnostic studies, discussion with consultants, patient, and family members, as well as other required patient management activities. This time is exclusive of all separately billable procedures, and teaching time and separate from and in addition to any other critical care service time. Coding Level of Care Code Critical Care 1st 30-74 mins Time Spent (min) 20
[2020-10-30] MEDS: INSULIN ASPART 100 UNITS/ML 3 ML PEN SC SCH ×3 (07:31→16:36)
[2020-10-30] MEDS: ENOXAPARIN 80 MG/0.8 ML SYR SQ SCH ×2 (08:47→19:51)
[2020-10-30] MEDS: fentaNYL DRIP 1,250 MCG/250 ML BAG IV SCH ×2 (08:47→19:51)
[2020-10-30] MEDS: dexAMETHasone 20 MG in DEXTROSE 5% 25 ML IV SCH (08:47)
[2020-10-30] MEDS: POLYETHYLENE (MIRALAX) 17 GM PACK PO SCH (08:48)
[2020-10-30] MEDS: ASCORBIC ACID 500 MG TAB PO SCH ×2 (08:48→19:51)
[2020-10-30] MEDS: PEPTAMEN INTENSE VHP 1.0 CAL 1,000 ML BAG GT SCH (08:48)
--- NOTE | 2020-10-30 09:00 | XRay Report ---
XR chest 1V portable CLINICAL HISTORY: Respiratory failure COMPARISON STUDY: 10/29/2020 FINDINGS: There is an endotracheal tube 33 mm above the lolita. There is an enteric tube which passes into the stomach. There is a right subclavian central venous catheter projected over the superior ve na cava. The heart is normal in size. There are persistent bilateral interstitial pulmonary opacities . There is equivocal slight improvement in the left lung opacities. IMPRESSION: 1. Persistent bilateral pulmonary interstitial opacities with equivocal slight improvement on the lef t. 2. Satisfactory positioning of the lines and tubes ACT 112: Negative or not required by law. Electronically signed by: Dharmesh Cardenas M.D. 10/30/2020 8:59 AM
[2020-10-30 10:00] LABS: iSTAT Art Bld Gas pCO2 Correct 66 mmHg (35-46); iSTAT Arterial Blood Gas HCO3 31 meg/L (19-24); iSTAT Arterial Blood Gas pCO2 68 mmHg (35-46); iSTAT Arterial Blood Gas pH 7.26 (7.35-7.45); iSTAT Arterial Blood Gas pO2 90 mmHg (80-95); iSTAT Arterial Blood Gas pO2 C 86; iSTAT Carbon Dioxide 33 mmol/L (24-31); iSTAT FiO2 60 %; iSTAT Hematocrit 53 % (42-52); iSTAT Potassium 4.6 mmol/L (3.3-5.0); iSTAT Site Art Line; iSTAT Sodium 140 mmol/L (135-144)
--- NOTE | 2020-10-30 11:12 | Critical Care Progress Note ---
Date of Service October 30, 2020 Assessment & Plan (1) Acute respiratory distress syndrome (ARDS) due to 2019-nCoV: Reason Critically Ill: Acute hypoxic respiratory failure PLAN: Neuro: Bis monitor -Propofol and fentanyl for sedation Resp: Acute respiratory distress syndrome secondary to COVID-19 -High PEEP low FiO2 via ARDSnet -Neuromuscular blockade -Pronation therapy -P to F ratio 150 -Mechanical ventilation day 2 Fluids/Renal: Lasix 40 mg x 1 today ID: Monitor fever curve GI/Nutrition: Tolerating tube feeds Heme: Lovenox for DVT prophylaxis Endocrine: ICU hyperglycemia protocol Decadron 20 mg x 5 days then 10 mg x 5 days Vascular access: Right subclavian line placed 10/29 Code Status: Full code Disposition: ICU (2) Pneumonia due to COVID-19 virus: (3) Acute respiratory failure with hypoxia: Admission and Anticipated Discharge Date Admission Date: October 25, 2020 Supervising Physician Co-Signing Physician Notes I have personally spent 45 minutes of critical care time in the direct management of this patient. This is a life/limb threatening event. This includes time spent evaluating patient, direct bedside care, chart review, placing orders, interpretation of diagnostic studies, discussion with consultants, patient, and/or family members regarding treatment decisions, as well as other required patient management activities. This time is exclusive of all separately billable procedures, and teaching time and separate from and in addition to any other critical care service time. Subjective No overnight events Review of Systems Review of Systems: Unobtainable due to endotracheal tube Physical Exam Physical Exam: General: Sedated. nontoxic. Skin: Warm, dry, Head: Atraumatic Ears, nose, mouth and throat: Obscured by endotracheal tube Cardiovascular: Normal peripheral perfusion Respiratory: no respiratory distress, ventilator settings reviewed Gastrointestinal: Non distended Musculoskeletal: No deformity Results & Data Results & Data ([facility]) Vital Signs (Past 12 Hours) Vital Signs Temp Pulse Resp BP Pulse Ox 10/30/20 08:16 75 24 96 10/30/20 06:00 36.0 C L 100 H 95 10/30/20 05:00 36.0 C L 84 125/83 94 10/30/20 04:16 36 C L 82 122/85 93 10/30/20 04:02 85 24 94 10/30/20 03:16 36.0 C L 80 120/83 94 10/30/20 02:16 36.0 C L 79 115/81 92 10/30/20 01:16 36.0 C L 82 112/79 91 10/30/20 00:16 36.1 C L 81 109/80 93 10/29/20 23:16 36.2 C L 85 122/86 94 10/29/20 23:15 85 24 94 Laboratory Results 10/30/20 10/30/20 10/30/20 Range/Units 09:28 06:03 05:04 WBC (4.8-10.8) K/uL RBC (4.7-6.1) M/uL Hgb (14.0-18.0) g/dL POC Hgb 18.0 17.7 (14.0-18.0) g/dl Hct (42-52) % POC Hct 53 H 52 (42-52) % MCV (80-100) fL MCH (25-34) pg MCHC (32-36) g/dL RDW Std Deviation (36.4-46.3) fL RDW Coeff of Rian (11.5-14.5) % Plt Count (130-400) K/uL MPV (7.4-10.4) fL Immature Gran % (Auto) % Neut % (Auto) % Lymph % (Auto) % Salem % (Auto) % Eos % (Auto) % Baso % (Auto) % Neut # (Auto) (1.4-6.5) K/uL Lymph # (Auto) (1.2-3.4) K/uL Salem # (Auto) (0.11-0.59) K/uL Eos # (Auto) (0-0.5) K/uL Baso # (Auto) (0-0.2) K/uL Immature Gran # (Auto) (0.00-0.02) K/uL Sample Site Art Line Art Line POC pH 7.26 L 7.29 L (7.35-7.45) POC pCO2 68 H 61 H (35-46) mmHg POC pO2 90 49 L (80-95) mmHg POC HCO3 31 H 29 H (19-24) gian/L POC Total CO2 33 H 31 (24-31) mmol/L POC Base Excess 4.0 H 2.0 H (-9-1.8) gian/L ABG pH (Temp Correct) 7.270 L 7.299 L (7.35-7.45) ABG pCO2 (Temp Corrct 66 H 59 H (35-46) mmHg POC ABG pO2 at Pt Temp 86 46 POC ABG O2 Sat 95.0 79.0 L (90-95) % Stuart Test NA NA O2 Delivery Device Ventilator Ventilator POC O2 Rate 24 24 Minute Ventilation 10 POC FiO2 60 50 % Tidal Volume 420 420 PEEP 18 16 POC Sodium 140 140 (135-144) mmol/L Sodium 143 (136-145) mmol/L POC Potassium 4.6 4.7 (3.3-5.0) mmol/L Potassium 4.0 (3.5-5.1) mmol/L Chloride 113 H (98-107) mmol/L Carbon Dioxide 26 (21-32) mmol/L Anion Gap 4.0 (3-11) BUN 18 (7-18) mg/dl Creatinine 0.57 L (0.6-1.4) mg/dl Est Cr Clr Drug Dosing 175.5 ml/min Est GFR ( Amer) 126.7 Est GFR (Non-Af Amer) 109.3 BUN/Creatinine Ratio 31.4 H (10-20) Glucose 106 H (70-99) mg/dl POC Glucose (70-99) mg/dl Calcium 7.5 L (8.5-10.1) mg/dl Phosphorus 3.2 (2.5-4.9) mg/dl Magnesium 2.4 (1.8-2.4) mg/dl 10/30/20 10/29/20 10/29/20 Range/Units 05:04 19:47 16:42 WBC 10.45 (4.8-10.8) K/uL RBC 5.18 (4.7-6.1) M/uL Hgb 15.5 (14.0-18.0) g/dL POC Hgb (14.0-18.0) g/dl Hct 48.4 (42-52) % POC Hct (42-52) % MCV 93.4 (80-100) fL MCH 29.9 (25-34) pg MCHC 32.0 (32-36) g/dL RDW Std Deviation 52.3 H (36.4-46.3) fL RDW Coeff of Rian 15.0 H (11.5-14.5) % Plt Count 236 (130-400) K/uL MPV 10.4 (7.4-10.4) fL Immature Gran % (Auto) 1.2 % Neut % (Auto) 80.8 % Lymph % (Auto) 9.1 % Salem % (Auto) 8.8 % Eos % (Auto) 0.0 % Baso % (Auto) 0.1 % Neut # (Auto) 8.44 H (1.4-6.5) K/uL Lymph # (Auto) 0.95 L (1.2-3.4) K/uL Salem # (Auto) 0.92 H (0.11-0.59) K/uL Eos # (Auto) 0.00 (0-0.5) K/uL Baso # (Auto) 0.01 (0-0.2) K/uL Immature Gran # (Auto) 0.13 H (0.00-0.02) K/uL Sample Site POC pH (7.35-7.45) POC pCO2 (35-46) mmHg POC pO2 (80-95) mmHg POC HCO3 (19-24) gian/L POC Total CO2 (24-31) mmol/L POC Base Excess (-9-1.8) gian/L ABG pH (Temp Correct) (7.35-7.45) ABG pCO2 (Temp Corrct (35-46) mmHg POC ABG pO2 at Pt Temp POC ABG O2 Sat (90-95) % Stuart Test O2 Delivery Device POC O2 Rate Minute Ventilation POC FiO2 % Tidal Volume PEEP POC Sodium (135-144) mmol/L Sodium (136-145) mmol/L POC Potassium (3.3-5.0) mmol/L Potassium (3.5-5.1) mmol/L Chloride (98-107) mmol/L Carbon Dioxide (21-32) mmol/L Anion Gap (3-11) BUN (7-18) mg/dl Creatinine (0.6-1.4) mg/dl Est Cr Clr Drug Dosing ml/min Est GFR ( Amer) Est GFR (Non-Af Amer) BUN/Creatinine Ratio (10-20) Glucose (70-99) mg/dl POC Glucose 132 H 146 H (70-99) mg/dl Calcium (8.5-10.1) mg/dl Phosphorus (2.5-4.9) mg/dl Magnesium (1.8-2.4) mg/dl Diagnostic Findings Chest x-ray reviewed Coding Level of Care Code Critical Care 1st 30-74 mins Diagnoses Acute respiratory distress syndrome (ARDS) due to 2019-nCoV U07.1; J80 Pneumonia due to COVID-19 virus U07.1; J12.82 Acute respiratory failure with hypoxia J96.01
[2020-10-30] MEDS ORDERED: FUROSEMIDE 40 MG in SYRINGE 0 ML IV ONE (11:15)
[2020-10-30] MEDS ORDERED: Nursing to Pharmacy Communication SCH (11:30)
--- NOTE | 2020-10-30 16:41 | Hospitalist Progress Note ---
Date of Service October 30, 2020 Assessment & Plan (1) Pneumonia due to COVID-19 virus: (2) Acute respiratory failure with hypoxia: Went to see his PCP for a Covid test and noted to have very low saturation and was sent in the emergency room COVID-19 test came back positive Sedated with propofol and intubated on Vent support Remdesivir was discontinued Continue IV dexamethasone (3) COPD exacerbation: Mostly due to COVID 19 History of COPD and is noncompliant and continue o smoke Counseling on smoking cessation Continue IV dexamethasone (4) Sleep apnea: History of sleep apnea and is noncompliant with CPAP (5) Hearing deficit: Has hearing deficit as per chart DVT prophylaxis Lovenox subcu CODE STATUS Full Disposition Continue monitor in the ICU Admission and Anticipated Discharge Date Admission Date: October 25, 2020 Subjective Pt was seen and examined for follow of respiratory failure due to covid 19 Pt is sedated and intubated on vent support Physical Exam Physical Exam: General- Sedated Head- atraumatic Eyes- PERRL, EOMI, ENT- Intubated Neck- supple, no JVD Lungs- clear to auscultation Heart- regular rhythm; no murmur Abdomen- normal bowel sounds, soft Neuro- Sedated Results & Data Results & Data ([facility]) Vital Signs (Past 12 Hours) Vital Signs Temp Pulse Resp BP Pulse Ox 10/30/20 15:02 37.0 C 84 97/69 L 93 10/30/20 14:02 36.9 C 89 108/77 93 10/30/20 14:00 36.9 C 85 93 10/30/20 13:02 36.8 C 95 H 137/92 94 10/30/20 12:02 36.8 C 82 110/77 95 10/30/20 12:00 36.8 C 83 24 95 10/30/20 11:02 36.6 C 87 110/79 95 10/30/20 10:02 36.4 C L 86 107/73 95 10/30/20 10:00 36.4 C L 84 95 10/30/20 09:02 36.2 C L 95 H 140/88 96 10/30/20 08:16 75 24 96 10/30/20 08:00 36.3 C L 78 97 10/30/20 07:00 36.1 C L 78 97 10/30/20 06:00 36.0 C L 100 H 95 10/30/20 05:00 36.0 C L 84 125/83 94
[2020-10-31] MEDS: INSULIN ASPART 100 UNITS/ML 3 ML PEN SC SCH ×5 (00:53→23:42)
[2020-10-31] MEDS: propofoL 1,000 MG/100 ML VIAL IV SCH ×4 (02:14→09:48)
[2020-10-31 03:49] LABS: iSTAT Art Bld Gas pCO2 Correct 69 mmHg (35-46); iSTAT Art Bld Gas pH Corrected 7.274 (7.35-7.45); iSTAT Arterial Blood Gas HCO3 32 meg/L (19-24); iSTAT Arterial Blood Gas pCO2 70 mmHg (35-46); iSTAT Arterial Blood Gas pH 7.27 (7.35-7.45); iSTAT Arterial Blood Gas pO2 72 mmHg (80-95); iSTAT Arterial Blood Gas pO2 C 71; iSTAT Carbon Dioxide 34 mmol/L (24-31); iSTAT FiO2 50 %; iSTAT Hematocrit 51 % (42-52); iSTAT Hemoglobin 17.3 g/dl (14.0-18.0); iSTAT Potassium 5.1 mmol/L (3.3-5.0); iSTAT Site Art Line; iSTAT Sodium 140 mmol/L (135-144)
[2020-10-31 05:06] LABS: Basophils # (auto) 0.01 K/uL (0-0.2); Basophils % (auto) 0.1 %; Hematocrit (blood only) 46.5 % (42-52); Hemoglobin 15.1 g/dL (14.0-18.0); Immature Granulocytes # (auto) 0.12 K/uL (0.00-0.02); Lymphocytes # (auto) 1.38 K/uL (1.2-3.4); Lymphocytes % (auto) 11.3 %; Mean Corpuscular Hemoglobin 30.6 pg (25-34); Mean Corpuscular Hgb Conc 32.5 g/dL (32-36); Mean Corpuscular Volume 94.1 fL (80-100); Mean Platelet Volume 10.8 fL (7.4-10.4); Monocytes # (auto) 0.66 K/uL (0.11-0.59); Monocytes % (auto) 5.4 %; Neutrophils # (auto) 10.02 K/uL (1.4-6.5); Neutrophils % (auto) 82.2 %; Platelet Count 248 K/uL (130-400); RDW Coefficient of Variation 15.2 % (11.5-14.5); RDW Standard Deviation 52.5 fL (36.4-46.3); Red Blood Count 4.94 M/uL (4.7-6.1); White Blood Count 12.19 K/uL (4.8-10.8)
[2020-10-31 05:24] LABS: Albumin Level 1.9 gm/dl (3.4-5.0); Calcium 7.5 mg/dl (8.5-10.1); Creatinine Clr Calc Pharmacy 130.8 ml/min; Est GFR (African American) 112.5; Est GFR (Non-African American) 97.1; Magnesium 2.4 mg/dl (1.8-2.4); Potassium 4.2 mmol/L (3.5-5.1)
[2020-10-31 05:32] LABS: Bilirubin Direct 0.2 mg/dl (0-0.2); Bilirubin,Total 0.4 mg/dl (0.2-1); Phosphorus 3.8 mg/dl (2.5-4.9); Total Protein 5.9 gm/dl (6.4-8.2)
[2020-10-31] MEDS: CISATRACURIUM BESYLATE 40 MG in 0.9 % SODIUM CHLORIDE 80 ML IV SCH ×2 (05:40→09:47)
--- NOTE | 2020-10-31 06:46 | Critical Care Progress Note ---
Date of Service October 31, 2020 Assessment & Plan (1) Admitted to intensive care unit: 65 y/o male w/ hx of COPD and YOBANY presents to the ICU evening of 10/25 for acute hypoxic respiratory failure from COVID-19 pneumonia. NIV was attempted for several days before mechanical ventilation. Intubation day 3. ICU day 7. Neuro - sedated on Nimbex, propofol, fentanyl. Will d/c Nimbex on 10/31. Will change Propofol to Versed on 10/31. BIS monitor. Decrease sedation this afternoon. After off Nimbex, goal of RASS -2. Cardiac - 10/28 AM nsr 80s. Intermittent tachycardia ~100. No hypertensive episodes ove rnight. Normotensive/slight hypotensive, MAPs >70. - On admission, Troponin negative, BNP within normal limits. 10/25 ECG cardiology interpretation: NSR 100 w/ occasional PVCs (new vs 2019). RBBB. QTC 490. Respiratory - Acute hypoxic respiratory failure: Covid 19+, 8 day symptom onset at presentation.Initially, on NIV. Intubated since 10/28 AM. - 10/31 settings. PRVC 28. 50% FiO2. 15 RR. 420 tidal volume. - 10/29 AB.29L/68H/67L/31H. 10/30 7.29L/61H/49L/29H 10/30 10/31 POC ABG. 7.27L/70H/72H/32H. respiratory acidosis. hypercapnic, so RR increased from 22- >28 - ABG PO2 goal of 55 or greater - plan to wean peep during next 24-48 hours - per admission provider, CTA negative for PE, bilateral subpleural predominant groundglass and consolidative opacities suggest multifocal like viral pneumonia. Emphysema noted. - was briefly on ARDSNet Dex protocol. 6 mg IV dexamethasone since 10/26 for covid, 20 mg dose 10-29-10/31. revert to 10 day course of 6 mg starting 11/01. Chest imaging reviewed and is less suggestive of ARDS. - completed 5 days of vitamin C 500 mg BID on 10/30 GI - tube feeds Peptamen Intense 25 mL/hr. 10/31 can titrate up after sedation decreases RENAL/LYTES - 10/31 K 4.6->5.1. BUN 15->18->31H. Cr 0.74->0.57->0.76, stable. will monitor renal function clinically - normosol 100 mL/hr - Lasix 40 mg IV PRN. - - Strict I's and O's w. goal of neg fluid balance. [place] since 10/27. 10/31 AM 2.3L in . 1.9L out. 0.60ml/kg/hr. cumulative 8.5L in 10.7L out ENDO - - No history of diabetes or thyroid disease - ICU hyperglycemic protocol, SSI - TSH 1.640 wnl HEME - - 10/31 Hb stable. 16.9>15.5->15.1. continue routine monitoring - 10/25 d dimer 1380H, likely 2/2 covid ID - - slight leukocytosis. 10.22 (10/28)->11.00H->10.45->12.19H (10/31). - as of 10/26, patient is 9 days since symptom onset. via shared-decision making after discussion of pros/cons w/ patient, will not be using remdesivir - Influenza A and B and RSV negative. MRSA screen neg - 10/25 procalc 0.05, wnl. 10/25 BC final no growth - abx if spikes fever. 10/30-10/31 overnight: afebrile - 10/26 no sputum culture obtained because patient not producing; his cough is dry - CT imaging at admission more consistent with viral inflammation, and low suspicion for bacterial infection..CRP (9.24H) and D-dimer elevated consistent with COVID-19 infection. LINES/IV ACCESS - Peripheral IVs, R IJ, L radial, [place]ak DVT PPX: SCDs, Lovenox 40 mg sq daily GI PPX: not on stress ulcer PPX because OGT feeding CODE: full DISPO: continue ICU care (2) Sleep apnea: (3) Acute respiratory failure with hypoxia: (4) Pneumonia due to COVID-19 virus: (5) COPD mixed type: Admission and Anticipated Discharge Date Admission Date: October 25, 2020 Supervising Physician Co-Signing Physician Notes Patient seen and examined. Discussed with off going critical care physician. Patient was presented and discussed on multidisciplinary rounds and discussed with the bedside critical care nurse. Agree with assessment and plan as noted by the family practice resident. 65-year-old male admitted with novel coronavirus pneumonia. He was intubated for hypoxemic respiratory failure failing noninvasive positive pressure ventilation. He is stabilizing from a respiratory standpoint. He was proned but appears to be maintaining a PaO2 greater than 55. He does have some mild hypercapnia and respiratory rate will be increased to compensate. This may improve his oxygenation. We will try and wean PEEP. Will discontinue propofol given elevated triglyceride levels and replace with Versed and fentanyl. Advance nutrition to goal once paralytics are off. Will decrease dexamethasone down to COVID-19 doses (6 mg daily for total 10 days). Continue to observe for secondary infections. Patient appears euvolemic so we will hold additional diuretics at this point time. Continue DVT prophylaxis but adjust to ACCP prophylactic regiment. Will discontinue paralytics at this point time and see how the patient does. Hopefully we can continue to make progress with respect to weaning his mechanical ventilation over the next 24 to 48hours. Patient's will be updated by telephone later today. A total of 45 minutes critical care time was spent evaluating managing and stabilizing this patient with multiple life-threatening issues. Subjective No acute events. Ventilator settings PEEP and FiO2 slightly increased overnight. Patient has not been proned since 3/7 AM. Review of Systems Review of Systems: ROS unobtainable because patient is sedated. Physical Exam Physical Exam: Exam limited by patient's sedation. General: Sedated. NAD. HEENT: PERRL. Pulm: Mechanically ventilated. Mild inspiratory crackles on right. Cardiac: RRR, no murmurs. No lower extremity pitting edema. DP pulses 2+ bilaterally. Abdominal: Nondistended, soft. Integumentary: R IJ and L radial IV sites are nonerythematous. Results & Data Results & Data ([facility]) Vital Signs (Past 12 Hours) Vital Signs Temp Pulse Resp BP Pulse Ox 10/31/20 05:02 37.1 C 85 108/61 91 10/31/20 04:02 37.0 C 84 90 10/31/20 03:53 80 25 H 91 10/31/20 03:02 36.9 C 80 92 10/31/20 02:02 36.8 C 76 91 10/31/20 01:00 36.8 C 75 90 10/31/20 00:02 36.9 C 80 91 10/30/20 23:21 79 23 92 10/30/20 23:02 36.9 C 80 91 10/30/20 22:02 36.9 C 80 92/66 L 91 10/30/20 21:02 36.8 C 78 94/64 L 87 L 10/30/20 20:02 36.8 C 87 107/72 95 10/30/20 19:57 77 24 88 L 10/30/20 19:02 36.8 C 78 93/63 L 88 L Laboratory Results 10/31/20 04:53 10/31/20 04:53 10/25/20 15:15 VBG pH 7.38 VBG pCO2 50 VBG pO2 32 VBG HCO3 29 VBG O2 Saturation 63.4 VBG Base Excess 2.7 Diagnostic Findings CXr independently reviewed. Tubes and lines OK. Basilar infiltrates stable to slightly improved. No new ASO Resident Activity Tracking Resident Involvement: Resident Care Provided Care Provided: Adult Hospital Medicine
[2020-10-31] MEDS: dexAMETHasone 20 MG in DEXTROSE 5% 25 ML IV SCH (07:55)
[2020-10-31] MEDS: fentaNYL DRIP 1,250 MCG/250 ML BAG IV SCH ×2 (07:55→22:32)
[2020-10-31] MEDS: ENOXAPARIN 80 MG/0.8 ML SYR SQ SCH (07:59)
[2020-10-31] MEDS: POLYETHYLENE (MIRALAX) 17 GM PACK PO SCH (07:59)
[2020-10-31] MEDS: PEPTAMEN INTENSE VHP 1.0 CAL 1,000 ML BAG GT SCH (08:00)
--- NOTE | 2020-10-31 08:14 | XRay Report ---
XR chest 1V portable HISTORY: Intubation. Follow-up. COMPARISON: Chest 10/30/2020. FINDINGS: No pneumothorax. Nasogastric tube terminates below the diaphragm. The tip is not included o n this study. Right subclavian central venous catheter terminates at the SVC. Endotracheal tube termi nates 5.7 cm from the lolita. The heart is normal in size. Diffuse interstitial thickening and trace bilateral pleural effusions persist. Hazy bibasilar airspace opacities are also unchanged. IMPRESSION: 1. Satisfactory support line placement. 2. No change in the diffuse interstitial thickening and hazy bibasilar airspace opacities. ACT 112: Negative or not required by law. Electronically signed by: Jimmie Foster M.D. 10/31/2020 8:12 AM
[2020-10-31] MEDS ORDERED: STAT IV Infusion **Titration per Protocol STA (10:14)
[2020-10-31] MEDS: MIDAZOLAM HCL 125 MG/250 ML BAG IV SCH (10:25)
[2020-10-31 10:53] LABS: iSTAT Art Bld Gas pCO2 Correct 68 mmHg (35-46); iSTAT Art Bld Gas pH Corrected 7.262 (7.35-7.45); iSTAT Arterial Blood Gas HCO3 31 meg/L (19-24); iSTAT Arterial Blood Gas pCO2 68 mmHg (35-46); iSTAT Arterial Blood Gas pH 7.26 (7.35-7.45); iSTAT Arterial Blood Gas pO2 67 mmHg (80-95); iSTAT Arterial Blood Gas pO2 C 67; iSTAT Carbon Dioxide 33 mmol/L (24-31); iSTAT Hematocrit 52 % (42-52); iSTAT Hemoglobin 17.7 g/dl (14.0-18.0); iSTAT Potassium 4.6 mmol/L (3.3-5.0); iSTAT Site Art Line; iSTAT Sodium 140 mmol/L (135-144)
--- NOTE | 2020-10-31 11:18 | Billing Data ---
Date of Service October 31, 2020 Coding Level of Care Code Critical Care 1st - mins
[2020-10-31] MEDS ORDERED: PEPTAMEN INTENSE VHP 1.0 CAL 1,000 ML BAG OG SCH (13:45)
--- NOTE | 2020-10-31 17:40 | Hospitalist Progress Note ---
Date of Service October 31, 2020 Assessment & Plan (1) Pneumonia due to COVID-19 virus: (2) Acute respiratory failure with hypoxia: Went to see his PCP for a Covid test and noted to have very low saturation and was sent in the emergency room COVID-19 test came back positive Sedated with versed and fentanyl drip and intubated on Vent support Remdesivir was discontinued Continue tube feeding Continue IV dexamethasone (3) COPD exacerbation: Mostly due to COVID 19 History of COPD and is noncompliant and continue o smoke Counseling on smoking cessation Continue IV dexamethasone (4) Sleep apnea: History of sleep apnea and is noncompliant with CPAP (5) Hearing deficit: Has hearing deficit as per chart DVT prophylaxis Lovenox subcu CODE STATUS Full Disposition Continue monitor in the ICU Admission and Anticipated Discharge Date Admission Date: October 25, 2020 Subjective Pt was seen and examined for follow of respiratory failure due to covid 19 Pt is sedated and intubated on vent support Review of Systems Review of Systems: All systems reviewed & are unremarkable except as noted in Subjective Physical Exam Physical Exam: General- Sedated Head- atraumatic Eyes- PERRL, EOMI, ENT- Intubated Neck- supple, no JVD Lungs- clear to auscultation Heart- regular rhythm; no murmur Abdomen- normal bowel sounds, soft Neuro- Sedated Results & Data Results & Data ([facility]) Vital Signs (Past 12 Hours) Vital Signs Temp Pulse Resp BP Pulse Ox 10/31/20 15:40 78 28 H 91 10/31/20 15:19 109 H 110/64 10/31/20 12:30 37.3 C 109 H 92 10/31/20 12:02 37.4 C 101 H 96/69 L 91 10/31/20 12:00 37.4 C 89 146/73 H 92 10/31/20 11:30 37.4 C 85 92 10/31/20 11:18 81 28 H 92 10/31/20 11:02 37.4 C 83 108/68 92 10/31/20 11:00 37.4 C 83 92 10/31/20 10:33 37.3 C 79 104/60 92 10/31/20 10:30 37.3 C 78 92 10/31/20 10:02 37.3 C 82 102/63 91 10/31/20 10:00 37.3 C 83 92 10/31/20 09:30 37.3 C 85 92 10/31/20 09:02 37.3 C 84 107/63 92 10/31/20 09:00 37.3 C 84 92 10/31/20 08:30 37.2 C 87 92 10/31/20 08:02 37.2 C 88 104/66 92 10/31/20 08:00 37.2 C 89 114/63 91 10/31/20 07:45 86 24 92 10/31/20 07:30 37.2 C 98 H 92 10/31/20 07:02 37.2 C 87 104/61 91 10/31/20 07:00 37.2 C 87 91 10/31/20 06:45 37.2 C 88 91
[2020-11-01 03:58] LABS: iSTAT Art Bld Gas pCO2 Correct 57 mmHg (35-46); iSTAT Arterial Blood Gas HCO3 33 meg/L (19-24); iSTAT Arterial Blood Gas pCO2 56 mmHg (35-46); iSTAT Arterial Blood Gas pH 7.38 (7.35-7.45); iSTAT Arterial Blood Gas pO2 65 mmHg (80-95); iSTAT Arterial Blood Gas pO2 C 67; iSTAT Carbon Dioxide 34 mmol/L (24-31); iSTAT Hematocrit 47 % (42-52); iSTAT Potassium 4.9 mmol/L (3.3-5.0); iSTAT Site Art Line; iSTAT Sodium 139 mmol/L (135-144)
[2020-11-01] MEDS: MIDAZOLAM HCL 125 MG/250 ML BAG IV SCH ×2 (04:39→22:53)
[2020-11-01] MEDS: MIDAZOLAM BOLUS FROM BAG IV PRN ×2 (04:56→10:40)
[2020-11-01 05:32] LABS: Hematocrit (blood only) 49.1 % (42-52); Mean Corpuscular Hemoglobin 30.4 pg (25-34); Mean Corpuscular Hgb Conc 32.6 g/dL (32-36); Mean Corpuscular Volume 93.2 fL (80-100); Mean Platelet Volume 11.5 fL (7.4-10.4); Platelet Count 255 K/uL (130-400); RDW Coefficient of Variation 15.3 % (11.5-14.5); RDW Standard Deviation 52.7 fL (36.4-46.3); Red Blood Count 5.27 M/uL (4.7-6.1); White Blood Count 14.05 K/uL (4.8-10.8)
[2020-11-01 05:58] LABS: Basophils # (auto) 0.02 K/uL (0-0.2); Basophils % (auto) 0.1 %; Immature Granulocytes # (auto) 0.21 K/uL (0.00-0.02); Immature Granulocytes % (auto) 1.5 %; Lymphocytes # (auto) 1.56 K/uL (1.2-3.4); Lymphocytes % (auto) 11.1 %; Monocytes # (auto) 1.36 K/uL (0.11-0.59); Monocytes % (auto) 9.7 %; Neutrophils % (auto) 77.6 %
[2020-11-01 06:03] LABS: BUN Creatinine Ratio 42.5 (10-20); Calcium 9.3 mg/dl (8.5-10.1); Creatinine Clr Calc Pharmacy 113.6 ml/min; Est GFR (African American) 106.5; Est GFR (Non-African American) 91.9; Magnesium 2.6 mg/dl (1.8-2.4); Phosphorus 2.8 mg/dl (2.5-4.9); Potassium 4.9 mmol/L (3.5-5.1)
[2020-11-01] MEDS: INSULIN ASPART 100 UNITS/ML 3 ML PEN SC SCH ×3 (06:05→17:47)
--- NOTE | 2020-11-01 07:08 | Critical Care Progress Note ---
Date of Service November 01, 2020 Assessment & Plan (1) Admitted to intensive care unit: 65 y/o male w/ hx of COPD and YOBANY presents to the ICU evening of 10/25 for acute hypoxic respiratory failure from COVID-19 pneumonia. NIV was attempted for several days before mechanical ventilation. Intubation day 4. ICU day 8. Neuro - sedated, no CAM-ICU obtained. Fentanyl 100 mcg/hr and Versed 6 mg/hr. - BIS monitor. Nimbex d/c'd 10/31. Goal of RASS -2. Cardiac - 11/01 BPs stable Respiratory - Acute hypoxic respiratory failure: Covid 19+, 8 day symptom onset at presentation.Initially, on NIV. Intubated since 3 AM. - 11/01 settings: prvc. 28 rr. 420 tidal volume. 14 peep. 45 fio2 - 10/29 AB.29L/68H/67L/31H. 10/30 7.29L/61H/49L/29H 10/30 10/31 POC ABG. 7.27L/70H/72H/32H. respiratory acidosis. hypercapnic, so RR increased from 22- >28 - 11/01 ABG 7.38/56H/65L/33H. Normal anion gap. Respiratory acidosis w/ renal compensation. - ABG PO2 goal of 55 or greater - continue weaning PEEP - per admission provider, CTA negative for PE, bilateral subpleural predominant groundglass and consolidative opacities suggest multifocal like viral pneumonia. Emphysema noted. - was briefly on [employer] Dex protocol. 6 mg IV dexamethasone since 10/26 for covid, 20 mg dose 10-29-10/31. Revert to 10 day course of 6 mg starting 11/01. Chest imaging reviewed and is less suggestive of ARDS. - completed 5 days of vitamin C 500 mg BID on 10/30 GI - 11/01 tube feeds Peptamen Intense 50 mL/hr, continue increasing to goal of 70 RENAL/LYTES - 11/01 BUN 15->18->31H->37H. Cr 0.74->0.57->0.76->0.87. will monitor renal function clinically. egfr is 91, function is good. - other electrolytes reviewed - not on current mIVF - 11/01 administered 20 mg IV lasix - Strict I's and O's w. goal of neg fluid balance. [place]ak since 10/27. 10/31 AM 2.3L in . 1.9L out. 0.60ml/kg/hr. cumulative 8.5L in 10.7L out ENDO - No history of diabetes or thyroid disease - ICU hyperglycemic protocol, SSI - BSGs mid 100s, max of 176 - TSH 1.640 wnl HEME - 11/01 Hb stable. continue routine monitoring - 10/25 d dimer 1380H, likely 2/2 covid ID - progression of leukocytosis. 10.22 (10/28)->11.00H->10.45->12.19H (10/31) ->14.05H (11/01) - tmax 37.9C 11/01. ordered sputum, urine, and blood cultures. ordered procalc. defer abx at the moment. - as of 10/26, patient is 9 days since symptom onset. via shared-decision making after discussion of pros/cons w/ patient, will not be using remdesivir - Influenza A and B and RSV negative. MRSA screen neg - 10/25 procalc 0.05, wnl. 10/25 BC final no growth - 10/26 no sputum culture obtained because patient not producing; his cough is dry - CT imaging at admission more consistent with viral inflammation, and low suspicion for bacterial infection..CRP (9.24H) and D-dimer elevated consistent with COVID-19 infection. LINES/IV ACCESS - Peripheral IVs, R IJ, L radial, nowak DVT PPX: SCDs, Lovenox 40 mg sq daily (11/01 increasing to BID because of patient's weight) GI PPX: not on stress ulcer PPX because OGT feeding CODE: full DISPO: continue ICU care (2) Sleep apnea: (3) Acute respiratory failure with hypoxia: (4) Pneumonia due to COVID-19 virus: (5) COPD mixed type: Admission and Anticipated Discharge Date Admission Date: October 25, 2020 Supervising Physician Co-Signing Physician Notes Patient seen and examined. Discussed with family practice resident and agree with assessment and plan as noted. Patient was discussed with bedside critical care nurse and on multidisciplinary ICU rounds as well. Patient has tolerated the vent changes with some improvement in his lung compliance. His plateau pressures are down to about 20 with improvement in his compliance up to about 80. His blood gases look better. His chest x-ray today demonstrated some mild vascular congestion and trial of diuretics will be initiated. He does have an elevation in his white blood cell count as well as low-grade fevers so we will check surveillance cultures and repeat procalcitonin. Tube feeding is being tolerated at goal. We will continue dexamethasone for treatment of coronavirus pneumonia. Continue sedation pending ventilator settings conducive to spontaneous breathing trial. Patient's will be updated by phone. Total of 50 minutes critical care time was spent in evaluation management stabilization of this patient with life-threatening illness. Subjective FiO2 increased from 40->50% overnight. He had brief vent async event and required bagging. No other events overnight. Review of Systems Review of Systems: ROS limited by patient's sedation. Physical Exam Physical Exam: General: Sedated, briefly aware when examining pupils. HEENT: Pupils symmetric. Has OG tube. Pulm: Mechanical ventilation. Lungs clear to auscultation bilaterally. Cardiac: RRR, -mrg. Bilateral LE appear puffy, but no pitting edema on exam. Abdominal: Nondistended, soft. : Has nowak. Integumentary: RIJ and L radial lines appear intact and nonerythematous. Results & Data Results & Data ([facility]) Vital Signs (Past 12 Hours) Vital Signs Temp Pulse Resp BP Pulse Ox 11/01/20 06:03 37.6 C H 90 114/75 90 11/01/20 05:03 37.5 C 84 108/69 89 L 11/01/20 04:03 37.6 C H 85 107/68 91 11/01/20 03:05 87 29 H 91 11/01/20 03:03 37.5 C 97 H 118/75 91 11/01/20 02:03 37.6 C H 82 111/70 91 11/01/20 01:03 37.5 C 83 106/68 91 11/01/20 00:03 37.5 C 82 108/67 91 10/31/20 23:26 91 H 29 H 89 L 10/31/20 23:03 37.5 C 83 111/69 90 10/31/20 22:03 37.5 C 80 102/67 91 10/31/20 21:03 37.4 C 79 103/68 91 10/31/20 20:03 37.3 C 81 114/71 90 10/31/20 19:22 85 28 H 89 L Diagnostic Findings 11/01 cxr reviewed. No significant change in bibasilar airpace opacities. Lines and tubes appropriate. Cardiomegaly and emphysema. Resident Activity Tracking Resident Involvement: Resident Care Provided Care Provided: Adult [facility] Medicine
[2020-11-01] MEDS: dexAMETHasone 6 MG in SYRINGE 0 ML IV SCH (07:22)
[2020-11-01] MEDS: POLYETHYLENE (MIRALAX) 17 GM PACK PO SCH (07:23)
[2020-11-01] MEDS ORDERED: ENOXAPARIN INJ 40 MG/0.4 ML SYR SQ SCH (09:00)
--- NOTE | 2020-11-01 09:56 | XRay Report ---
SINGLE VIEW CHEST CLINICAL HISTORY: Covid pneumonia. FINDINGS: 2 AP, portable, upright chest radiographs are compared to study dated 10/31/2020. A right sub clavian central venous catheter, an enteric tube, and an endotracheal tube are unchanged in position. The heart is mildly enlarged. Emphysema and chronic interstitial thickening is similar to previous. Multifocal interstitial airspace consolidations again seen throughout both lungs, greatest at the lef t lung base. No large pleural effusion or pneumothorax is seen. The bony thorax is grossly intact. IMPRESSION: 1. Stable lines and tubes. 2. Cardiomegaly and emphysema. 3. Multifocal airspace consolidation is unchanged. ACT 112: Negative or not required by law. Electronically signed by: Kevyn Rodriguez M.D. 11/01/2020 9:55 AM
[2020-11-01] MEDS ORDERED: FUROSEMIDE 20 MG in SYRINGE 0 ML IV ONE (11:00)
[2020-11-01] MEDS: ACETAMINOPHEN 325 MG TAB PO PRN (11:29)
[2020-11-01] MEDS: fentaNYL DRIP 1,250 MCG/250 ML BAG IV SCH ×2 (12:03→22:52)
--- NOTE | 2020-11-01 13:23 | Billing Data ---
Date of Service November 01, 2020 Coding Level of Care Code Critical Care 1st 30-74 mins Time Spent (min) 50 Comment 50 min CC time evaluating and managing life threatening illness
[2020-11-01] MEDS: PEPTAMEN INTENSE VHP 1.0 CAL 1,000 ML BAG OG SCH (14:57)
--- NOTE | 2020-11-01 17:20 | Hospitalist Progress Note ---
Date of Service November 01, 2020 Assessment & Plan (1) Pneumonia due to COVID-19 virus: (2) Acute respiratory failure with hypoxia: Went to see his PCP for a Covid test and noted to have very low saturation and was sent in the emergency room COVID-19 test came back positive Sedated with versed and fentanyl drip and intubated on Vent support CXR showed cardiomegaly and emphysema. Multifocal airspace consolidation is unchanged. Lasix 20mg IV given today Continue weaning trial daily as per director informatics Continue tube feeding Continue IV dexamethasone (3) COPD exacerbation: Mostly due to COVID 19 History of COPD and is noncompliant and continue o smoke Counseling on smoking cessation Continue IV dexamethasone (4) Sleep apnea: History of sleep apnea and is noncompliant with CPAP (5) Hearing deficit: Has hearing deficit as per chart DVT prophylaxis Lovenox subcu CODE STATUS Full Disposition Continue monitor in the ICU Admission and Anticipated Discharge Date Admission Date: October 25, 2020 Subjective Pt was seen and examined for follow of respiratory failure due to covid 19 Pt is sedated and intubated on vent support Able to open eyes a little when shook him and shouted his name Physical Exam Physical Exam: General- Sedated Head- atraumatic Eyes- PERRL, EOMI, ENT- Intubated Neck- supple, no JVD Lungs- clear to auscultation Heart- regular rhythm; no murmur Abdomen- normal bowel sounds, soft Neuro- Sedated Results & Data Results & Data ([facility]) Vital Signs (Past 12 Hours) Vital Signs Temp Pulse Resp BP Pulse Ox 11/01/20 15:10 88 28 H 92 11/01/20 15:03 37.8 C H 85 108/69 93 11/01/20 15:00 37.8 C H 85 93 11/01/20 14:03 37.8 C H 88 101/69 92 11/01/20 14:00 37.8 C H 85 92 11/01/20 13:03 37.8 C H 89 107/67 92 11/01/20 13:00 37.8 C H 90 92 11/01/20 12:04 37.9 C H 86 92 11/01/20 12:03 37.9 C H 87 106/67 92 11/01/20 12:00 37.9 C H 87 92 11/01/20 11:10 98 H 29 H 91 11/01/20 11:04 37.9 C H 85 91 11/01/20 11:03 37.9 C H 85 104/71 91 11/01/20 11:00 37.9 C H 84 92 11/01/20 10:03 37.8 C H 92 H 137/70 90 11/01/20 10:00 37.8 C H 91 H 90 11/01/20 09:03 37.7 C H 86 113/75 89 L 11/01/20 09:00 37.7 C H 87 89 L 11/01/20 08:41 37.7 C H 90 123/72 91 11/01/20 08:03 37.7 C H 94 H 123/72 90 11/01/20 08:00 37.7 C H 94 H 114/75 91 11/01/20 07:40 95 H 29 H 91 11/01/20 07:03 37.7 C H 92 H 110/71 91 11/01/20 07:00 37.7 C H 90 91 11/01/20 06:04 37.6 C H 87 90 11/01/20 06:03 37.6 C H 90 114/75 90
[2020-11-01] MEDS: ENOXAPARIN INJ 40 MG/0.4 ML SYR SQ SCH (19:57)
[2020-11-02] MEDS: INSULIN ASPART 100 UNITS/ML 3 ML PEN SC SCH ×4 (00:17→17:42)
[2020-11-02 03:18] LABS: iSTAT Art Bld Gas pCO2 Correct 57 mmHg (35-46); iSTAT Art Bld Gas pH Corrected 7.368 (7.35-7.45); iSTAT Arterial Blood Gas HCO3 33 meg/L (19-24); iSTAT Arterial Blood Gas pCO2 55 mmHg (35-46); iSTAT Arterial Blood Gas pH 7.38 (7.35-7.45); iSTAT Arterial Blood Gas pO2 59 mmHg (80-95); iSTAT Arterial Blood Gas pO2 C 63; iSTAT Carbon Dioxide 34 mmol/L (24-31); iSTAT Hematocrit 46 % (42-52); iSTAT Hemoglobin 15.6 g/dl (14.0-18.0); iSTAT Potassium 4.6 mmol/L (3.3-5.0); iSTAT Site Art Line; iSTAT Sodium 141 mmol/L (135-144)
[2020-11-02 04:40] LABS: Hematocrit (blood only) 46.3 % (42-52); Hemoglobin 15.4 g/dL (14.0-18.0); Mean Corpuscular Hemoglobin 30.7 pg (25-34); Mean Corpuscular Hgb Conc 33.3 g/dL (32-36); Mean Corpuscular Volume 92.4 fL (80-100); Mean Platelet Volume 10.9 fL (7.4-10.4); Platelet Count 265 K/uL (130-400); RDW Coefficient of Variation 15.6 % (11.5-14.5); RDW Standard Deviation 52.9 fL (36.4-46.3); Red Blood Count 5.01 M/uL (4.7-6.1)
[2020-11-02 05:00] LABS: BUN Creatinine Ratio 48.1 (10-20); Calcium 8.8 mg/dl (8.5-10.1); Est GFR (African American) 111.9; Est GFR (Non-African American) 96.6; Magnesium 2.5 mg/dl (1.8-2.4); Potassium 4.7 mmol/L (3.5-5.1)
[2020-11-02 05:16] LABS: Basophils # (auto) 0.01 K/uL (0-0.2); Basophils % (auto) 0.1 %; Immature Granulocytes # (auto) 0.15 K/uL (0.00-0.02); Lymphocytes # (auto) 1.98 K/uL (1.2-3.4); Lymphocytes % (auto) 12.8 %; Monocytes # (auto) 1.03 K/uL (0.11-0.59); Monocytes % (auto) 6.6 %; Neutrophils # (auto) 12.33 K/uL (1.4-6.5); Neutrophils % (auto) 79.5 %
[2020-11-02] MEDS: PEPTAMEN INTENSE VHP 1.0 CAL 1,000 ML BAG OG SCH ×2 (05:31→16:03)
[2020-11-02] MEDS: POLYETHYLENE (MIRALAX) 17 GM PACK PO SCH (08:12)
[2020-11-02] MEDS: ENOXAPARIN INJ 40 MG/0.4 ML SYR SQ SCH ×2 (08:12→19:19)
[2020-11-02] MEDS: dexAMETHasone 6 MG in SYRINGE 0 ML IV SCH (08:13)
[2020-11-02] MEDS: ACETAMINOPHEN 325 MG TAB PO PRN ×3 (08:32→16:03)
--- NOTE | 2020-11-02 08:34 | XRay Report ---
XR chest 1V portable HISTORY: 65 years-old Male f/u follow-up study in a patient with acute respiratory failure COMPARISON: Chest radiograph 11/01/2020, CTA chest 10/25/2020. TECHNIQUE: Portable AP view of the chest FINDINGS: Endotracheal tube overlies the midline, 4.4 cm superior to the lolita. Right subclavian catheter dist al tip is unchanged in expected location of the brachiocephalic SVC confluence. Enteric tube courses below the diaphragm with distal tip in the expected location of the mid stomach. Emphysema with chron ic fibrosis. Progressively worsened reticular opacities. Blunting of the costophrenic angles suggests trace effusions. Persistent ill-defined left basilar predominant airspace opacities. IMPRESSION: 1. Lines and tubes as above. 2. Emphysema with chronic fibrosis. 3. Mildly progressed reticular opacities suspicious for pulmonary edema. 4. Small left pleural effusion with persistent bilateral airspace opacities. ACT 112: Negative or not required by law. The above report was generated using voice recognition software. It may contain grammatical, syntax o r spelling errors. Electronically signed by: Iraj Cardenas M.D. 11/02/2020 8:33 AM
[2020-11-02] MEDS ORDERED: FUROSEMIDE 20 MG in SYRINGE 0 ML IV ONE (10:00)
--- NOTE | 2020-11-02 10:29 | Critical Care Progress Note ---
Date of Service November 02, 2020 Assessment & Plan (1) Admitted to intensive care unit: 65 y/o male w/ hx of COPD and YOBANY presents to the ICU evening of 10/25 for acute hypoxic respiratory failure from COVID-19 pneumonia. NIV was attempted for several days before mechanical ventilation. Intubation day 5. ICU day 9. Neuro - sedated, RASS-3 this AM. Fentanyl 100 mcg/hr and Versed 6 mg/hr. Continue sedation while requiring vent. Goal of RASS-2. Cardiac - BPs stable. Sinus tachycardia 104 on telemetry. Continue telemetry monitoring. Respiratory - Acute hypoxic respiratory failure: Covid 19+, 8 day symptom onset at presentation.Initially, on NIV. Intubated since 10/28 AM. - 11/02 settings: prvc. 28 rr. 420 tidal volume. 10 peep. 50 fio2. - 11/01 AB.38/56H/65L/33H. 11/02: 7.38/55H/59L/33H. Respiratory acidosis, w/ metabolic compensation. - ABG PO2 goal of 55 or greater - continue weaning PEEP as tolerated. FiO2 goal of 50 or less. - 11/02 cxr: mildly progressed reticular opacities suspicious for pulmonary edema. Image is more expirated compared to 11/01. continue diuresis w/ Lasix - per admission provider, CTA negative for PE, bilateral subpleural predominant groundglass and consolidative opacities suggest viral pneumonia. - continue 10 day course of 6 mg IV dexamethasone for covid - completed 5 days of vitamin C 500 mg BID on 10/30 GI - 11/02 tube feeds at goal (70 ml/hr). continue tube feeds. - last BM on 10/29. continue miralax. Abd exam may be 2/2 constipation. added lactulose 30 gram 11/02. RENAL/LYTES - renal function stable. replete electrolytes as needed. diuresis as per above. - [place]ak since 10/27. 11/01-11/02 24 hr Is/Os. 2.5L in. 1.9L out. 0.61 ml/kg/hr. cumulative 12L in 14L out. - Good UOP overnight (1150mL) s/p 20 mg IV lasix. Given questionably slightly worsened cxr and puffy appearance of lower extremities, will continue diuresing w/ 20 mg IV lasix. ENDO - ICU hyperglycemic protocol, SSI - TSH wnl on admission HEME - H/H stable. continue routine monitoring. ID - progression of leukocytosis. 10.22 (10/28)->11.00H->10.45->12.19H (10/31)->14.05H (11/01)->15.5 (11/02) - tmax 37.9C afternoon of 11/01. 37.6-37.8C overnight . procalc <0.05. BC, UC pending. Sputum culture pending. Sputum gram: stain moderate polys. rare gram pos cocci. rare yeast. Will defer abx until cultures result. - no signs of line infection - monitor fever curve - as of 10/26, patient is 9 days since symptom onset. via shared-decision making after discussion of pros/cons w/ patient, will not be using Remdesivir - on admission, influenza A and B and RSV negative. MRSA screen neg. 10/25 procalc 0.05, wnl. 10/25 BC final no growth - CT, CRP (elevated), and D-dimer (elevated) at admission consistent with COVID- 19 infection. LINES/IV ACCESS - R IJ CVL, L radial art line, nowak DVT PPX: SCDs, Lovenox 40 mg sq BID GI PPX: not on stress ulcer PPX because OGT feeding CODE: full DISPO: continue ICU care (2) Sleep apnea: (3) Acute respiratory failure with hypoxia: (4) Pneumonia due to COVID-19 virus: (5) COPD mixed type: Admission and Anticipated Discharge Date Admission Date: October 25, 2020 Supervising Physician Co-Signing Physician Notes Patient seen and examined. Discussed with family practice resident and agree with assessment and plan as noted. Patient was discussed with bedside critical care nurse and on multidisciplinary ICU rounds as well. Patient continues to show some improvement with regards to his oxygenation. His plateau pressures are better and we have been able to come down on his FiO2 and PEEP. He tolerated diuresis yesterday and will give an additional dose of Lasix today to see if we can mobilize some additional fluid. Continue efforts at weaning PEEP and FiO2 to the point that we could consider SBT. Continue to follow with regards to the patient's fever curve. His white count continues to remain elevated. Unclear how much of this could be related to dexamethasone and how much may be acute phase reactant. Chest x-ray does not demonstrate new infiltrates and cultures have shown no growth to date, but Gram stain did show occasional GPC's with moderate PMNs. Hold antibiotics for now Patient's will be updated by phone. Total of 50 minutes critical care time was spent in evaluation management stabilization of this patient with life-threatening illness. Subjective Patient had a desaturation to 70s around midnight during care. He required brief bagging. ET tube was then lavaged and a mucous plug was remove. His FiO2 was increased from 45 to 50 overnight. PEEP was at 10. He received overnight for the temp of 37.8C. Good UOP 1150mL overnight. Review of Systems Review of Systems: ROS limited by patient sedation. RASS per nursing was -3. Physical Exam Physical Exam: General: Sedated HEENT: Pupils symmetric. Pulm: Mechanical ventilation. Clear to auscultation at anterior lung hunter. Cardiac: RRR, -mrg. DP pulses 2+. Bilateral lower extremity appear puffy, no pitting edema. Distal lower extremities warm and well perfused. Abdominal: Nontender, nondistended. Slightly firm. Integumentary: LIJ and L radial line sites nonerythematous. Results & Data Results & Data ([facility]) Vital Signs (Past 12 Hours) Vital Signs Temp Pulse Resp BP Pulse Ox 11/02/20 06:03 37.6 C H 90 132/73 88 L 11/02/20 06:00 37.6 C H 92 H 88 L 11/02/20 05:03 37.6 C H 89 113/72 88 L 11/02/20 04:03 37.6 C H 84 120/70 88 L 11/02/20 03:03 37.6 C H 87 108/68 88 L 11/02/20 03:02 85 29 H 90 11/02/20 02:03 37.5 C 86 116/68 89 L 11/02/20 01:03 37.5 C 85 117/68 88 L 11/02/20 00:03 37.7 C H 99 H 117/73 88 L 11/02/20 00:00 103 H 30 H 88 L 11/01/20 23:03 37.8 C H 157/100 H 93 11/01/20 22:03 37.7 C H 87 115/70 90 11/01/20 21:03 37.7 C H 90 123/70 89 L 11/01/20 20:31 87 31 H 91 11/01/20 20:03 37.8 C H 88 119/72 91 11/01/20 20:00 85 Resident Activity Tracking Resident Involvement: Resident Care Provided Care Provided: Adult [facility] Medicine
[2020-11-02] MEDS ORDERED: LACTULOSE SYRUP 30 GM/45 ML UDP PO ONE (10:30)
--- NOTE | 2020-11-02 11:31 | Billing Data ---
Date of Service November 02, 2020 Coding Level of Care Code Critical Care 1st 30-74 mins Time Spent (min) 52
[2020-11-02] MEDS: fentaNYL DRIP 1,250 MCG/250 ML BAG IV SCH ×2 (11:32→22:16)
[2020-11-02] MEDS: MIDAZOLAM HCL 125 MG/250 ML BAG IV SCH ×2 (14:35→17:29)
--- NOTE | 2020-11-02 17:45 | Hospitalist Progress Note ---
Date of Service November 02, 2020 Assessment & Plan (1) Pneumonia due to COVID-19 virus: (2) Acute respiratory failure with hypoxia: Went to see his PCP for a Covid test and noted to have very low saturation and was sent in the emergency room COVID-19 test came back positive Sedated with versed and fentanyl drip and intubated on Vent support CXR showed cardiomegaly and emphysema. Multifocal airspace consolidation is unchanged. Lasix 20mg IV given today Continue weaning trial daily as per family consumer science teacher Continue tube feeding Continue IV dexamethasone (3) COPD exacerbation: Mostly due to COVID 19 History of COPD and is noncompliant and continue o smoke Counseling on smoking cessation Continue IV dexamethasone (4) Sleep apnea: History of sleep apnea and is noncompliant with CPAP (5) Hearing deficit: Has hearing deficit as per chart DVT prophylaxis Lovenox subcu CODE STATUS Full Disposition Continue monitor in the ICU Admission and Anticipated Discharge Date Admission Date: October 25, 2020 Subjective Pt was seen and examined for follow of respiratory failure due to covid 19 Pt is sedated and intubated on vent support Able to open eyes a little when shook him and shouted his name Physical Exam Physical Exam: General- Sedated Head- atraumatic Eyes- PERRL, EOMI, ENT- Intubated Neck- supple, no JVD Lungs- clear to auscultation Heart- regular rhythm; no murmur Abdomen- normal bowel sounds, soft Neuro- Sedated Results & Data Results & Data ([facility]) Vital Signs (Past 12 Hours) Vital Signs Temp Pulse Resp BP Pulse Ox 11/02/20 15:15 94 H 29 H 92 11/02/20 12:04 37.8 C H 103 H 120/77 90 11/02/20 12:00 37.8 C H 102 H 90 11/02/20 11:55 103 H 29 H 90 11/02/20 11:03 37.8 C H 106 H 154/94 H 86 L 11/02/20 11:00 37.9 C H 113 H 89 L 11/02/20 10:50 95 H 30 H 88 L 11/02/20 10:03 37.6 C H 88 121/72 87 L 11/02/20 10:00 37.6 C H 88 87 L 11/02/20 09:03 37.6 C H 92 H 117/72 87 L 11/02/20 09:00 37.6 C H 92 H 87 L 11/02/20 08:03 37.6 C H 99 H 134/76 88 L 11/02/20 08:00 37.6 C H 100 H 119/45 L 87 L 11/02/20 07:37 98 H 28 H 92 11/02/20 07:03 37.6 C H 89 123/70 88 L 11/02/20 07:00 37.6 C H 88 88 L 11/02/20 06:03 37.6 C H 90 132/73 88 L 11/02/20 06:00 37.6 C H 92 H 88 L
[2020-11-03] MEDS: MIDAZOLAM BOLUS FROM BAG IV PRN ×2 (00:03→17:42)
[2020-11-03 04:55] LABS: Basophils # (auto) 0.01 K/uL (0-0.2); Basophils % (auto) 0.1 %; Eosinophils # (auto) 0.03 K/uL (0-0.5); Eosinophils % (auto) 0.2 %; Hematocrit (blood only) 46.7 % (42-52); Hemoglobin 15.4 g/dL (14.0-18.0); Immature Granulocytes % (auto) 1.3 %; Lymphocytes % (auto) 7.7 %; Mean Corpuscular Hemoglobin 30.4 pg (25-34); Mean Corpuscular Volume 92.3 fL (80-100); Monocytes % (auto) 15.5 %; Neutrophils # (auto) 11.67 K/uL (1.4-6.5); Neutrophils % (auto) 75.2 %; Platelet Count 259 K/uL (130-400); RDW Coefficient of Variation 15.7 % (11.5-14.5); RDW Standard Deviation 53.1 fL (36.4-46.3); Red Blood Count 5.06 M/uL (4.7-6.1); White Blood Count 15.51 K/uL (4.8-10.8)
[2020-11-03 05:02] LABS: iSTAT Art Bld Gas pCO2 Correct 57 mmHg (35-46); iSTAT Art Bld Gas pH Corrected 7.407 (7.35-7.45); iSTAT Arterial Blood Gas HCO3 36 meg/L (19-24); iSTAT Arterial Blood Gas pCO2 56 mmHg (35-46); iSTAT Arterial Blood Gas pH 7.41 (7.35-7.45); iSTAT Arterial Blood Gas pO2 60 mmHg (80-95); iSTAT Arterial Blood Gas pO2 C 62; iSTAT Carbon Dioxide 38 mmol/L (24-31); iSTAT FiO2 60 %; iSTAT Hematocrit 47 % (42-52); iSTAT Potassium 4.5 mmol/L (3.3-5.0); iSTAT Site Art Line; iSTAT Sodium 142 mmol/L (135-144)
[2020-11-03] MEDS: INSULIN ASPART 100 UNITS/ML 3 ML PEN SC SCH ×4 (05:11→17:41)
[2020-11-03 05:13] LABS: BUN Creatinine Ratio 52.4 (10-20); Calcium 9.1 mg/dl (8.5-10.1); Creatinine Clr Calc Pharmacy 150.6 ml/min; Est GFR (African American) 119.3; Est GFR (Non-African American) 102.9; Magnesium 2.3 mg/dl (1.8-2.4); Potassium 4.5 mmol/L (3.5-5.1)
--- NOTE | 2020-11-03 07:24 | Critical Care Progress Note ---
Date of Service November 03, 2020 Assessment & Plan (1) Admitted to intensive care unit: Reason critically ill: 65 y/o male w/ hx of COPD and YOBANY presents to the ICU evening of 10/25 for acute hypoxic respiratory failure from COVID-19 pneumonia. NIV was attempted for several days before mechanical ventilation. Intubation day 6. ICU day 10. Neuro - sedated. continue sedation fentanyl 100 versed 6 until able to wean vent Cardiac/Vascular - blood pressures stable. continue tele Respiratory - mechanical ventilation: PRVC tidal volume 480, peep 12, FiO2 60. Satting 88-89 - goal of FiO2 50 or less. keep PEEP at 12 until FiO2 lowered. not ready for SBT today. - slight metabolic alkalosis. 11/02 abg 7.38/55H/59L/33H. 11/03 7.41/56H/60L/36H. continue respiratory rate at 28. - continue dex 6mg 10 day course GI/Nutrition - continue tube feeds 70 Renal/Lytes - stable Genitourinary - continue nowak - 24 hr Is/Os: 2.1L in. 2.3L out. 0.77 ml/kg/hr. cumulative 15L in 17L out. Goal of net neg balance - will administer IV lasix 20 mg today Endo - continue SSI Heme - stable, continue monitoring ID - afeb overnight, wbc elevated but stable at 15.4. urine culture is pos for 100k+ CFU streptococcus. - will start IV levo because of cross reactivity of amp w/ cephalexin allergy. Per pharmacy, cross reactivity is low, but higher for this specific cephalosporin than others. - will repeat sputum culture because foul smelling sputum overnight. Sputum culture from 2 days ago grew normal mervat. LINES/IV ACCESS - R subclavian CVL, L radial art line, nowak DVT PPX: SCDs, Lovenox 40 mg sq BID GI PPX: not on stress ulcer PPX because OGT feeding (2) Sleep apnea: (3) Acute respiratory failure with hypoxia: (4) Pneumonia due to COVID-19 virus: (5) COPD mixed type: (6) UTI (urinary tract infection): Admission and Anticipated Discharge Date Admission Date: October 25, 2020 Supervising Physician Co-Signing Physician Notes Patient seen and examined. Discussed with family practice resident and agree with assessment and plan as noted. Patient was discussed with bedside critical care nurse and on multidisciplinary ICU rounds as well. Patient's oxygenation is stable. We will continue efforts to wean PEEP. Will give additional diuretics today. Given the strep species in his urine will cover with levofloxacin and await speciation and sensitivity. Enterococcus is certainly possible. Per RT report, there is copious amounts of purulent phlegm so we will resend sputum cultures as well. The patient is at risk for secondary bacterial infection of the lung. Tolerating tube feed. The patient is moving his bowels appropriately. Other organ systems appear to be stable for now. Could consider tracheostomy at some point however the hope is that the patient will continue to improve from a respiratory standpoint and that this would not be necessary. He does not have insurance so long-term acute care facility is not an option for him. 45 minutes critical care time spent evaluating managing and stabilizing patient including discussion with multiple team members. Subjective Patient had desaturation overnight w/ care and was bagged briefly. During lavage of ET tube, there was thick, creamy, foul smelling sputum. Review of Systems Review of Systems: ROS limited by patient sedation. Physical Exam Physical Exam: General: Sedated. HEENT: PERRL. Pulm: On mechanical ventilation. Lungs are clear to auscultation at anterior and lateral hunter. Cardiac: RRR, -mrg. Radial pulses intact and symmetrical. Lower extremity puffy appearance, no pitting appreciated. Well perfused. Abdominal: Nontender, nondistended, soft. : Has nowak. Integumentary: R subclavian CVL and L radial art line are intact and not erythematous. Results & Data Results & Data ([facility]) Vital Signs (Past 12 Hours) Vital Signs Temp Pulse Resp BP Pulse Ox 11/03/20 05:05 37.3 C 98 H 91 11/03/20 05:04 37.3 C 104 H 147/86 H 91 11/03/20 05:00 37.3 C 106 H 91 11/03/20 04:30 59 L 28 H 94 11/03/20 04:04 37.4 C 96 H 114/85 92 11/03/20 04:00 37.4 C 87 91 11/03/20 03:04 37.4 C 90 121/77 92 11/03/20 03:00 37.4 C 85 92 11/03/20 02:04 37.4 C 86 116/79 91 11/03/20 02:00 37.4 C 85 91 11/03/20 01:04 37.3 C 87 109/74 90 11/03/20 01:00 37.3 C 90 91 11/03/20 00:05 37.4 C 97 H 90 11/03/20 00:04 37.4 C 101 H 125/80 90 11/03/20 00:00 37.4 C 103 H 89 L 11/02/20 23:45 102 H 28 H 91 11/02/20 23:00 37.4 C 111 H 91 11/02/20 22:00 37.3 C 97 H 91 11/02/20 21:00 37.3 C 88 90 11/02/20 20:00 37.3 C 91 H 90 Resident Activity Tracking Resident Involvement: Resident Care Provided Care Provided: Adult Hospital Medicine
[2020-11-03] MEDS: POLYETHYLENE (MIRALAX) 17 GM PACK PO SCH (08:46)
[2020-11-03] MEDS: ENOXAPARIN INJ 40 MG/0.4 ML SYR SQ SCH ×2 (08:46→20:55)
[2020-11-03] MEDS: dexAMETHasone 6 MG in SYRINGE 0 ML IV SCH (08:46)
[2020-11-03] MEDS ORDERED: dexAMETHasone 10 MG in SYRINGE 0 ML IV SCH (09:00)
--- NOTE | 2020-11-03 09:01 | XRay Report ---
SINGLE VIEW CHEST CLINICAL HISTORY: Follow-up Covid pneumonia. FINDINGS: An AP, portable, semierect chest radiograph is compared to study dated 11/02/2020. [facility] is degraded by portable technique, apical lordotic positioning, and patient rotation. A right subclavian central venous catheter, an enteric tube, and an endotracheal tube are unchanged in posit ion. The heart is mildly enlarged. Emphysema and chronic interstitial thickening is similar to previo us. Multifocal interstitial airspace consolidations again seen throughout both lungs, greatest at the left lung base. Small pleural effusions are suspected. No pneumothorax is seen. The bony thorax is g rossly intact. IMPRESSION: 1. Stable lines and tubes. 2. Cardiomegaly and emphysema. 3. Multifocal airspace consolidation is unchanged. ACT 112: Negative or not required by law. Electronically signed by: Kevyn Rodriguez M.D. 11/03/2020 9:00 AM
[2020-11-03] MEDS ORDERED: FUROSEMIDE 20 MG in SYRINGE 0 ML IV ONE (09:45)
[2020-11-03] MEDS: fentaNYL DRIP 1,250 MCG/250 ML BAG IV SCH ×3 (11:10→20:54)
[2020-11-03] MEDS: levoFLOXacin/D5W 750 MG/150 ML BAG IV SCH (11:33)
--- NOTE | 2020-11-03 13:44 | Billing Data ---
Date of Service November 03, 2020 Coding Level of Care Code Critical Care 1st - mins
[2020-11-03] MEDS: MIDAZOLAM HCL 125 MG/250 ML BAG IV SCH ×3 (14:33→15:00)
--- NOTE | 2020-11-03 14:43 | Hospitalist Progress Note ---
Date of Service November 03, 2020 Assessment & Plan (1) Pneumonia due to COVID-19 virus: (2) Acute respiratory failure with hypoxia: Went to see his PCP for a Covid test and noted to have very low saturation and was sent in the emergency room COVID-19 test came back positive Sedated with versed and fentanyl drip and intubated Day#6 Mechanical Vent support CXR showed cardiomegaly and emphysema. Multifocal airspace consolidation is unchanged. Lasix 20mg IV given today Continue weaning trial daily as per back roll lathe operator Continue tube feeding Continue IV dexamethasone If unable to wean from the vent, might consider tracheostomy (3) UTI (urinary tract infection): Urine cx grew enterococcus faecalis Was starting on IV levoquin Continue monitor closely (4) COPD exacerbation: Mostly due to COVID 19 History of COPD and is noncompliant and continue o smoke Counseling on smoking cessation Continue IV dexamethasone (5) Sleep apnea: History of sleep apnea and is noncompliant with CPAP (6) Hearing deficit: Has hearing deficit as per chart DVT prophylaxis Lovenox subcu CODE STATUS Full Disposition Continue monitor in the ICU Admission and Anticipated Discharge Date Admission Date: October 25, 2020 Subjective Pt was seen and examined for follow of respiratory failure due to covid 19 Pt is sedated and intubated on vent support day #6 Physical Exam Physical Exam: General- Sedated Head- atraumatic Eyes- PERRL, EOMI, ENT- Intubated Neck- supple, no JVD Lungs- clear to auscultation Heart- regular rhythm; no murmur Abdomen- normal bowel sounds, soft Neuro- Sedated Results & Data Results & Data ([facility]) Vital Signs (Past 12 Hours) Vital Signs Temp Pulse Resp BP Pulse Ox 11/03/20 11:04 37.5 C 83 123/76 89 L 11/03/20 11:01 90 28 H 89 L 11/03/20 10:04 37.4 C 88 126/79 90 11/03/20 09:04 37.5 C 105 H 158/92 H 91 11/03/20 09:00 37.5 C 103 H 152/89 H 92 11/03/20 08:04 37.4 C 91 H 123/89 89 L 11/03/20 08:00 85 11/03/20 07:28 28 H 11/03/20 07:04 37.4 C 98 H 133/84 89 L 03/11/21 05:05 37.3 C 98 H 91 11/03/20 05:04 37.3 C 104 H 147/86 H 91 11/03/20 05:00 37.3 C 106 H 91 11/03/20 04:30 59 L 28 H 94 11/03/20 04:04 37.4 C 96 H 114/85 92 11/03/20 04:00 37.4 C 87 91 11/03/20 03:04 37.4 C 90 121/77 92 11/03/20 03:00 37.4 C 85 92
[2020-11-03] MEDS: PEPTAMEN INTENSE VHP 1.0 CAL 1,000 ML BAG OG SCH (20:55)
[2020-11-03] MEDS: ACETAMINOPHEN 325 MG TAB PO PRN (23:41)
[2020-11-04] MEDS: INSULIN ASPART 100 UNITS/ML 3 ML PEN SC SCH ×4 (00:02→18:12)
[2020-11-04] MEDS: MIDAZOLAM BOLUS FROM BAG IV PRN ×3 (04:15→20:49)
[2020-11-04 04:22] LABS: iSTAT Arterial Blood Gas HCO3 34 meg/L (19-24); iSTAT Arterial Blood Gas pCO2 57 mmHg (35-46); iSTAT Arterial Blood Gas pH 7.38 (7.35-7.45); iSTAT Arterial Blood Gas pO2 69 mmHg (80-95); iSTAT Carbon Dioxide 36 mmol/L (24-31); iSTAT Site Art Line
[2020-11-04 05:35] LABS: Basophils # (auto) 0.02 K/uL (0-0.2); Basophils % (auto) 0.1 %; Eosinophils # (auto) 0.03 K/uL (0-0.5); Eosinophils % (auto) 0.2 %; Hematocrit (blood only) 46.6 % (42-52); Hemoglobin 15.1 g/dL (14.0-18.0); Immature Granulocytes # (auto) 0.27 K/uL (0.00-0.02); Immature Granulocytes % (auto) 1.8 %; Lymphocytes # (auto) 1.78 K/uL (1.2-3.4); Lymphocytes % (auto) 12.1 %; Mean Corpuscular Hgb Conc 32.4 g/dL (32-36); Mean Corpuscular Volume 92.6 fL (80-100); Mean Platelet Volume 11.4 fL (7.4-10.4); Monocytes # (auto) 1.79 K/uL (0.11-0.59); Monocytes % (auto) 12.2 %; Neutrophils # (auto) 10.79 K/uL (1.4-6.5); Neutrophils % (auto) 73.6 %; Platelet Count 201 K/uL (130-400); RDW Coefficient of Variation 15.7 % (11.5-14.5); RDW Standard Deviation 53.4 fL (36.4-46.3); Red Blood Count 5.03 M/uL (4.7-6.1); White Blood Count 14.68 K/uL (4.8-10.8)
[2020-11-04 05:59] LABS: Calcium 9.2 mg/dl (8.5-10.1); Creatinine Clr Calc Pharmacy 141.6 ml/min; Est GFR (African American) 117.1; Magnesium 2.3 mg/dl (1.8-2.4); Potassium 4.4 mmol/L (3.5-5.1)
[2020-11-04 06:00] LABS: Phosphorus 2.9 mg/dl (2.5-4.9)
[2020-11-04] MEDS: fentaNYL DRIP 1,250 MCG/250 ML BAG IV SCH ×2 (06:53→15:20)
[2020-11-04] MEDS: dexAMETHasone 6 MG in SYRINGE 0 ML IV SCH (08:22)
[2020-11-04] MEDS: ENOXAPARIN INJ 40 MG/0.4 ML SYR SQ SCH ×2 (08:23→20:49)
[2020-11-04] MEDS: POLYETHYLENE (MIRALAX) 17 GM PACK PO SCH (08:23)
--- NOTE | 2020-11-04 08:47 | XRay Report ---
XR chest 1V portable CLINICAL HISTORY: Respiratory failure COMPARISON STUDY: 11/03/2020 FINDINGS: There is an endotracheal tube 46 mm above the lolita. There is a right subclavian central v enous catheter. There is an enteric tube which passes into the stomach. The cardiac and mediastinal c ontours remain stable. There is a persistent small left pleural effusion. There is pulmonary emphysem a. There are bilateral pulmonary airspace opacities similar to the prior study.[ IMPRESSION: Stable findings. ACT 112: Negative or not required by law. Electronically signed by: Dharmesh Cardenas M.D. 11/04/2020 8:45 AM
--- NOTE | 2020-11-04 08:52 | Critical Care Progress Note ---
Date of Service November 04, 2020 Assessment & Plan (1) Admitted to intensive care unit: Reason critically ill: 65 y/o male w/ hx of COPD and YOBANY presents to the ICU evening of 10/25 for acute hypoxic respiratory failure from COVID-19 pneumonia. NIV was attempted for several days before mechanical ventilation. Intubation day 7. ICU day 11. Neuro - sedated on fentanyl 125 Versed 4 until able to wean vent - 11/04 patient has been on Versed since 10/31. Will switch to a different agent; please see attending documentation. Cardiac/Vascular - blood pressures stable. continue tele. Respiratory - mechanical ventilation settings 11/04: PRVC tidal volume 480, peep 12, FiO2 55- 50. Satting 89-92 - goal of FiO2 50 or less. keep PEEP at 12 until FiO2 lowered. Afterwards, will wean PEEP as tolerated. - slight metabolic acidosis 11/03 7.41/56H/60L/36H -> 11/04 7.38/57H/69L/34H - completed IV dexamethasone 6mg 10 day course - continue suctioning of mucus as needed. no bronch indicated at this time. defer Mucomyst at this time. GI/Nutrition - continue tube feeds 70 Renal/Lytes - stable, Cr 0.66->0.69 Genitourinary - continue nowak - 24 hr Is/Os: 3L in 3L out. 0.98 ml/kg/hr. Cumulative 17.5L in 19L out. Goal of net neg balance - 11/04 will increase diuresis to 40 mg IV lasix BID. Endo - continue SSI Heme - stable, continue monitoring ID - covid pneumonia. Presented at day 8-9 of symptoms and remdesivir was not started. Decision was made to not remdesivir via shared decision making w/ patient at day 9-10 of symptoms. - afeb overnight, wbc elevated but stable at 15.4. urine culture is pos for 100k+ CFU pansensitive enterococcus faecalis and 2nd strain of enterococcus. - 11/04 started IV levofloxaxin 750 daily to cover for both urinary and pulmonary sources. QTCb ~490s, will follow. Continue levofloxacin at current dose. - sputum culture prelim GBS, few. gram stain shows moderate gram pos bacilli and many WBC. - 11/04 per nursing staff, tongue is coated white and appears consistent w/ candidiasis. ordered nystatin swish QID LINES/IV ACCESS: R subclavian CVL, L radial art line, nowak DVT PPX: SCDs, Lovenox 40 mg sq BID GI PPX: not on stress ulcer PPX because OGT feeding (2) Sleep apnea: (3) Acute respiratory failure with hypoxia: (4) Pneumonia due to COVID-19 virus: (5) COPD mixed type: (6) UTI (urinary tract infection): Admission and Anticipated Discharge Date Admission Date: October 25, 2020 Supervising Physician Co-Signing Physician Notes Patient seen and examined. Discussed with family practice resident and agree with assessment and plan as noted. Patient was discussed with bedside critical care nurse and on multidisciplinary ICU rounds as well. Patient's oxygenation is stable. Urine growing Enterococcus and sputum growing Streptococcus. Should be covered by Levaquin. Continue to follow fever curve and tracheal secretions. We will continue efforts at weaning FiO2 and PEEP. Could consider tracheostomy at some point however the hope is that the patient will continue to improve from a respiratory standpoint and that this would not be necessary. He does not have insurance so long-term acute care facility is not an option for him. 39 minutes critical care time spent evaluating managing and stabilizing patient including discussion with multiple team members. Subjective FiO2 increased overnight from 50% to 60% for desat. No other events overnight. Last BM was x2 on night of 3/10 s/p 1 dose of lactulose. Review of Systems Review of Systems: ROS limited by patient sedation. Physical Exam Physical Exam: General: Opened eyes to tactile stimuli, but is sedated. HEENT: PERRL. Pulm: Mechanically ventilated. Clear at anterior and lateral lung hunter. Cardiac: RRR, -mrg. Trace LE edema on right. Abdominal: Nondistended, soft. : Has nowak. Integumentary: R CVL and L radial lines are nonerythematous. Results & Data Results & Data ([facility]) Vital Signs (Past 12 Hours) Vital Signs Temp Pulse Resp BP Pulse Ox 11/04/20 08:04 37.8 C H 93 H 139/89 92 11/04/20 08:00 81 11/04/20 07:45 78 28 H 92 11/04/20 07:05 37.8 C H 82 91 11/04/20 07:04 37.8 C H 82 116/76 91 11/04/20 06:04 37.8 C H 82 123/76 91 11/04/20 06:00 37.8 C H 84 91 11/04/20 05:04 37.7 C H 80 122/72 91 11/04/20 04:54 37.7 C H 81 117/73 90 11/04/20 04:21 37.8 C H 96 H 90 11/04/20 04:19 37.8 C H 94 H 132/79 90 11/04/20 04:18 37.8 C H 93 H 90 11/04/20 04:06 90 28 H 90 11/04/20 04:00 38.0 C H 103 H 91 11/04/20 03:04 38.0 C H 80 134/76 92 11/04/20 02:15 79 28 H 91 11/04/20 02:04 38.0 C H 79 126/70 91 11/04/20 02:00 38.0 C H 80 91 11/04/20 01:04 37.9 C H 82 122/68 90 11/04/20 00:04 37.8 C H 91 H 135/80 89 L 11/04/20 00:00 37.8 C H 93 H 89 L 11/03/20 23:04 37.9 C H 89 145/84 H 89 L 11/03/20 22:38 79 28 H 92 11/03/20 22:05 37.8 C H 83 92 11/03/20 22:04 37.8 C H 83 127/75 92 11/03/20 22:00 37.8 C H 84 92 11/03/20 21:05 37.7 C H 83 92 11/03/20 21:04 37.7 C H 84 132/75 92 Resident Activity Tracking Resident Involvement: Resident Care Provided Care Provided: Adult Hospital Medicine
[2020-11-04] MEDS: MIDAZOLAM HCL 125 MG/250 ML BAG IV SCH ×4 (09:23→19:34)
[2020-11-04] MEDS: levoFLOXacin/D5W 750 MG/150 ML BAG IV SCH (12:27)
[2020-11-04] MEDS ORDERED: FUROSEMIDE 20 MG in SYRINGE 0 ML IV ONE (13:45)
[2020-11-04] MEDS: PEPTAMEN INTENSE VHP 1.0 CAL 1,000 ML BAG OG SCH (13:51)
[2020-11-04] MEDS: ACETAMINOPHEN 325 MG TAB PO PRN (15:07)
--- NOTE | 2020-11-04 17:37 | Billing Data ---
Date of Service November 04, 2020 Coding Level of Care Code Critical Care 1st -74 mins
[2020-11-04] MEDS: NYSTATIN SUSP 500,000 U/5 ML UDC PO SCH ×2 (17:42→20:50)
--- NOTE | 2020-11-04 18:37 | Hospitalist Progress Note ---
Date of Service November 04, 2020 Assessment & Plan (1) Pneumonia due to COVID-19 virus: (2) Acute respiratory failure with hypoxia: Went to see his PCP for a Covid test and noted to have very low saturation and was sent in the emergency room COVID-19 test came back positive Sedated with versed and fentanyl drip and intubated Day#6 Mechanical Vent support CXR showed cardiomegaly and emphysema. Multifocal airspace consolidation is unchanged. Sputum cx grew broup B strep Continue IV levaquin Continue weaning trial daily as per harness installer Continue tube feeding Continue IV dexamethasone If unable to wean from the vent, might consider tracheostomy (3) UTI (urinary tract infection): Urine cx grew enterococcus faecalis Was starting on IV levaquin Continue monitor closely (4) COPD exacerbation: Mostly due to COVID 19 History of COPD and is noncompliant and continue o smoke Counseling on smoking cessation Continue IV dexamethasone (5) Sleep apnea: History of sleep apnea and is noncompliant with CPAP (6) Hearing deficit: Has hearing deficit as per chart DVT prophylaxis Lovenox subcu CODE STATUS Full Disposition Continue monitor in the ICU Admission and Anticipated Discharge Date Admission Date: October 25, 2020 Subjective Pt was seen and examined for follow of respiratory failure due to covid 19 Pt is sedated and intubated on vent support day #7 Physical Exam Physical Exam: General- Sedated Head- atraumatic Eyes- PERRL, EOMI, ENT- Intubated Neck- supple, no JVD Lungs- clear to auscultation Heart- regular rhythm; no murmur Abdomen- normal bowel sounds, soft Neuro- Sedated Results & Data Results & Data ([facility]) Vital Signs (Past 12 Hours) Vital Signs Temp Pulse Resp BP Pulse Ox 11/04/20 17:04 37.8 C H 77 120/70 93 11/04/20 16:05 37.7 C H 82 123/78 92 11/04/20 16:00 101 H 11/04/20 15:15 90 28 H 92 11/04/20 15:04 37.8 C H 89 177/103 H 94 11/04/20 14:04 37.9 C H 93 H 150/91 H 94 11/04/20 13:04 37.9 C H 90 141/78 H 92 11/04/20 12:04 37.9 C H 83 130/76 91 11/04/20 11:20 81 28 H 90 11/04/20 11:04 37.8 C H 81 125/74 89 L 11/04/20 10:04 37.7 C H 89 135/78 88 L 11/04/20 09:04 37.6 C H 97 H 141/88 H 90 11/04/20 08:04 37.8 C H 93 H 139/89 92 11/04/20 08:00 81 11/04/20 07:45 78 28 H 92 11/04/20 07:05 37.8 C H 82 91 11/04/20 07:04 37.8 C H 82 116/76 91
[2020-11-04] MEDS: FUROSEMIDE 40 MG in SYRINGE 0 ML IV SCH (20:50)
[2020-11-05] MEDS: fentaNYL DRIP 1,250 MCG/250 ML BAG IV SCH ×3 (00:27→16:41)
[2020-11-05] MEDS: INSULIN ASPART 100 UNITS/ML 3 ML PEN SC SCH ×4 (00:35→16:54)
[2020-11-05] MEDS: MIDAZOLAM BOLUS FROM BAG IV PRN (00:45)
[2020-11-05 04:23] LABS: iSTAT Art Bld Gas pCO2 Correct 55 mmHg (35-46); iSTAT Art Bld Gas pH Corrected 7.432 (7.35-7.45); iSTAT Arterial Blood Gas HCO3 36 meg/L (19-24); iSTAT Arterial Blood Gas pCO2 54 mmHg (35-46); iSTAT Arterial Blood Gas pH 7.44 (7.35-7.45); iSTAT Arterial Blood Gas pO2 61 mmHg (80-95); iSTAT Arterial Blood Gas pO2 C 63; iSTAT Carbon Dioxide 38 mmol/L (24-31); iSTAT Hematocrit 47 % (42-52); iSTAT Potassium 4.2 mmol/L (3.3-5.0); iSTAT Site Art Line; iSTAT Sodium 142 mmol/L (135-144)
[2020-11-05 05:21] LABS: Basophils # (auto) 0.01 K/uL (0-0.2); Basophils % (auto) 0.1 %; Eosinophils # (auto) 0.03 K/uL (0-0.5); Eosinophils % (auto) 0.3 %; Hematocrit (blood only) 34.8 % (42-52); Hemoglobin 11.1 g/dL (14.0-18.0); Immature Granulocytes # (auto) 0.12 K/uL (0.00-0.02); Immature Granulocytes % (auto) 1.1 %; Lymphocytes # (auto) 1.14 K/uL (1.2-3.4); Lymphocytes % (auto) 10.5 %; Mean Corpuscular Hemoglobin 29.7 pg (25-34); Mean Corpuscular Hgb Conc 31.9 g/dL (32-36); Mean Platelet Volume 11.5 fL (7.4-10.4); Monocytes # (auto) 1.27 K/uL (0.11-0.59); Monocytes % (auto) 11.7 %; Neutrophils # (auto) 8.27 K/uL (1.4-6.5); Neutrophils % (auto) 76.3 %; Platelet Count 158 K/uL (130-400); RDW Coefficient of Variation 15.6 % (11.5-14.5); RDW Standard Deviation 53.7 fL (36.4-46.3); Red Blood Count 3.74 M/uL (4.7-6.1); White Blood Count 10.84 K/uL (4.8-10.8)
[2020-11-05 06:04] LABS: BUN Creatinine Ratio 59.8 (10-20); Creatinine Clr Calc Pharmacy 153.9 ml/min; Est GFR (African American) 121.6; Est GFR (Non-African American) 104.9; Magnesium 2.1 mg/dl (1.8-2.4); Phosphorus 2.9 mg/dl (2.5-4.9); Potassium 3.5 mmol/L (3.5-5.1)
[2020-11-05] MEDS: NYSTATIN SUSP 500,000 U/5 ML UDC PO SCH ×4 (07:22→21:20)
[2020-11-05] MEDS: ENOXAPARIN INJ 40 MG/0.4 ML SYR SQ SCH ×2 (07:22→21:21)
[2020-11-05] MEDS: POLYETHYLENE (MIRALAX) 17 GM PACK PO SCH (07:22)
[2020-11-05] MEDS: FUROSEMIDE 40 MG in SYRINGE 0 ML IV SCH ×2 (07:31→21:20)
--- NOTE | 2020-11-05 07:59 | XRay Report ---
XR chest 1V portable HISTORY: 65 years-old Male resp failure acute respiratory failure COMPARISON: Chest radiograph 11/04/2020 TECHNIQUE: Portable AP view of the chest FINDINGS: Endotracheal tube overlies the midline, 4.6 cm superior to the lolita. A right subclavian central trung ous catheter distal tip terminates in the expected location of the inferior SVC. An enteric tube cour ses below the diaphragm outside the [id number]. Cardiac silhouette is mildly enlarged. Pulmonary v ascular congestion with unchanged small left pleural effusion and left greater than right bibasilar o pacities. Emphysema with chronic interstitial coarsening. Degenerative changes of the shoulders and s pine. IMPRESSION: 1. Stable lines and tubes. 2. Unchanged small left pleural effusion with bibasilar consolidation. 3. Emphysema with chronic interstitial coarsening. ACT 112: Negative or not required by law. The above report was generated using voice recognition software. It may contain grammatical, syntax o r spelling errors. Electronically signed by: Iraj Cardenas M.D. 11/05/2020 7:58 AM
--- NOTE | 2020-11-05 11:20 | Critical Care Progress Note ---
Date of Service November 05, 2020 Assessment & Plan (1) Acute respiratory distress syndrome (ARDS) due to 2019-nCoV: Reason critically ill: 65 y/o male w/ hx of COPD and YOBANY presents to the ICU evening of / for acute hypoxic respiratory failure from COVID-19 pneumonia. NIV was attempted for several days before mechanical ventilation. Intubation day 8. ICU day 12 24-hour events: Patient has been hemodynamically stable off pressors. He is tolerating tube feeds at goal. Have made efforts to try and wean FiO2 and PEEP however the patient has been largely stagnant. Recommendations Neuro: Continue sedation with fentanyl and Versed as well as propofol as tolerated. Cardiac/Vascular: No current issues. Continue to trend Respiratory: ARDS secondary to COVID-19. Blood gas: 7.4 4/54/61/36. Vent settings: PRVC 28/480/12/0 0.55. P plateau 20. P/F 110. Hopefully improvement in fluid status will result in improved oxygenation. I changed his BETSY ratio to 1-1 today to see prove recruitment. He does have a small left-sided pleural effusion. Do not think he needs to be tapped currently. Given his difficulty weaning, would like to proceed with dexamethasone at higher doses. We will place him on 20mg a day for 5 days followed by 10 mg a day for 5days. We will broach the subject of tracheostomy with the family however according to case management the patient has no insurance or resources and would not be eligible for long-term acute care facility. GI/Nutrition - continue tube feeds 70. Bowel protocol Renal/Lytes - stable, Cr 0.66->0.69. Continue attempts at diuresis. Blood gas does show mild alkalosis and will give 1 dose of Diamox today. Genitourinary Continue Nowak catheter Endo - continue SSI Heme - stable, continue monitoring ID COVID-19 pneumonia. Continue dexamethasone for late-phase fibroproliferative ARDS. Sputum culture with beta-hemolytic strep and urine culture with Enterococcus. On Levaquin. Has low-grade fevers. We will continue to follow closely and if remains febrile will consider replacing his arterial line and central venous catheter as well as surveillance duplex of the lower extremities. Check PCT in AM. LINES/IV ACCESS: R subclavian CVL, L radial art line, nowak DVT PPX: SCDs, Lovenox 40 mg sq BID GI PPX: not on stress ulcer PPX because OGT feeding Patient remains critically ill with multiorgan system dysfunction on life support. A total of 41 minutes critical care time was spent in evaluation management stabilization of this patient. Family will be updated by phone if possible today (2) Admitted to intensive care unit: (3) UTI (urinary tract infection): Admission and Anticipated Discharge Date Admission Date: October 25, 2020 Subjective Patient is intubated and sedated. He does move his arms and legs. Review of Systems Review of Systems: Unobtainable due to endotracheal tube Physical Exam Constitutional: well developed, + obese and + mechanically ventilated Neck: trachea midline, no thyromegaly Respiratory: Auscultation: + crackles Cardiovascular: Rate/Rhythm: regular rate Heart Sounds: normal S1 and normal S2 Extremities: + edema Gastrointestinal (Abdomen): normal bowel sounds, soft, nontender, no hepatosplenomegaly Musculoskeletal: Extremities: extremities normal to inspection Skin: no rashes, warm and dry Neurologic: Nonfocal exam Lymphatic: no cervical lymphadenopathy Results & Data Results & Data ([facility]) Vital Signs (Past 12 Hours) Vital Signs Temp Pulse Resp BP Pulse Ox 11/05/20 09:30 37.5 C 84 90 11/05/20 09:05 37.5 C 88 125/87 88 L 11/05/20 09:00 37.5 C 89 88 L 11/05/20 08:30 37.4 C 87 89 L 11/05/20 08:05 37.4 C 94 H 136/94 91 11/05/20 08:00 37.4 C 88 118/67 91 11/05/20 07:45 37.4 C 111 H 29 H 153/97 H 93 11/05/20 07:30 37.3 C 100 H 93 11/05/20 07:04 37.3 C 99 H 158/83 H 92 11/05/20 07:00 37.3 C 102 H 93 11/05/20 06:30 37.3 C 97 H 92 11/05/20 06:04 37.4 C 92 H 135/83 92 11/05/20 06:00 37.4 C 89 92 11/05/20 05:29 37.5 C 100 H 90 11/05/20 05:28 37.5 C 102 H 134/88 90 11/05/20 05:00 37.5 C 96 H 93 11/05/20 04:06 82 28 H 90 11/05/20 04:05 37.4 C 81 120/78 89 L 11/05/20 04:00 37.4 C 84 89 L 11/05/20 03:04 37.3 C 80 150/83 H 92 11/05/20 03:00 37.4 C 79 92 11/05/20 02:04 37.4 C 85 142/80 H 91 11/05/20 02:00 37.4 C 83 90 11/05/20 01:30 84 28 H 90 11/05/20 01:04 37.4 C 79 118/72 89 L 11/05/20 01:01 37.5 C 79 125/75 89 L 11/05/20 01:00 37.5 C 78 88 L 11/05/20 00:06 37.4 C 81 91 11/05/20 00:05 37.4 C 85 134/82 91 11/05/20 00:00 37.4 C 82 90 11/04/20 23:51 93 H I/O: -1400 Laboratory Results 11/05/20 04:57 11/05/20 04:57 Respiratory culture group B beta-hemolytic strep Urine culture 2 species of Enterococcus faecalis, pansensitive Blood gas: 7.4 4/54/61/36. Vent settings: PRVC 28/480/12/0 0.55. P plateau 20. P/F 110 Diagnostic Findings Chest x-ray from today was independently reviewed. Tubes and lines in appropria te position. Hazy bibasilar opacities with pleural effusion. Coding Level of Care Code Critical Care 1st 30-74 mins Diagnoses Acute respiratory distress syndrome (ARDS) due to 2019-nCoV U07.1; J80 Admitted to intensive care unit Z78.9 UTI (urinary tract infection) N39.0 Time Spent (min) 41
[2020-11-05] MEDS ORDERED: acetaZOLAMIDE 250 MG TAB PO ONE (11:21)
[2020-11-05] MEDS ORDERED: dexAMETHasone 20 MG in SYRINGE 0 ML IV SCH (11:45)
[2020-11-05] MEDS: levoFLOXacin/D5W 750 MG/150 ML BAG IV SCH (12:15)
--- NOTE | 2020-11-05 16:13 | Hospitalist Progress Note ---
Date of Service November 05, 2020 Assessment & Plan (1) Pneumonia due to COVID-19 virus: (2) Acute respiratory failure with hypoxia: Went to see his PCP for a Covid test and noted to have very low saturation and was sent in the emergency room COVID-19 test came back positive Sedated with versed and fentanyl drip and intubated Day#7 Mechanical Vent support CXR showed cardiomegaly and emphysema. Multifocal airspace consolidation is unchanged. Sputum cx grew broup B strep Continue IV levaquin Continue weaning trial daily as per lead man over all dies in pattern shop Continue tube feeding Continue IV dexamethasone If unable to wean from the vent, might consider tracheostomy (3) UTI (urinary tract infection): Urine cx grew enterococcus faecalis Was starting on IV levaquin Continue monitor closely (4) COPD exacerbation: Mostly due to COVID 19 History of COPD and is noncompliant and continue o smoke Counseling on smoking cessation Continue IV dexamethasone (5) Sleep apnea: History of sleep apnea and is noncompliant with CPAP (6) Hearing deficit: Has hearing deficit as per chart DVT prophylaxis Lovenox subcu CODE STATUS Full Disposition Continue monitor in the ICU Admission and Anticipated Discharge Date Admission Date: October 25, 2020 Subjective Pt was seen and examined for respiratory failure Sedated and intubated on mechanical ventilation support Continue to fail weaning trial Physical Exam Physical Exam: General- Sedated Head- atraumatic Eyes- PERRL, EOMI, ENT- Intubated Neck- supple, no JVD Lungs- clear to auscultation Heart- regular rhythm; no murmur Abdomen- normal bowel sounds, soft Neuro- Sedated Results & Data Results & Data ([facility]) Vital Signs (Past 12 Hours) Vital Signs Temp Pulse Resp BP Pulse Ox 11/05/20 15:40 112 H 27 H 92 11/05/20 15:13 97 H 151/80 H 11/05/20 15:05 37.9 C H 92 H 130/84 90 11/05/20 15:00 37.9 C H 89 89 L 11/05/20 14:30 37.8 C H 110 H 91 11/05/20 14:05 37.8 C H 95 H 125/83 89 L 11/05/20 14:00 37.8 C H 91 H 91 11/05/20 13:30 37.7 C H 97 H 90 11/05/20 13:05 37.7 C H 127 H 147/96 H 90 11/05/20 13:00 37.7 C H 124 H 91 11/05/20 12:30 37.7 C H 97 H 92 11/05/20 12:05 37.7 C H 87 117/80 90 11/05/20 12:00 37.7 C H 85 141/86 H 91 11/05/20 11:30 37.7 C H 87 89 L 11/05/20 11:20 85 27 H 92 11/05/20 11:04 37.7 C H 86 118/83 92 11/05/20 11:00 37.7 C H 85 92 11/05/20 10:30 37.6 C H 81 92 11/05/20 10:05 37.6 C H 86 109/73 92 11/05/20 10:00 37.6 C H 85 91 11/05/20 09:30 37.5 C 84 90 11/05/20 09:05 37.5 C 88 125/87 88 L 11/05/20 09:00 37.5 C 89 88 L 11/05/20 08:30 37.4 C 87 89 L 11/05/20 08:05 37.4 C 94 H 136/94 91 11/05/20 08:00 37.4 C 88 118/67 91 11/05/20 07:45 37.4 C 111 H 29 H 153/97 H 93 11/05/20 07:30 37.3 C 100 H 93 11/05/20 07:04 37.3 C 99 H 158/83 H 92 11/05/20 07:00 37.3 C 102 H 93 11/05/20 06:30 37.3 C 97 H 92 11/05/20 06:04 37.4 C 92 H 135/83 92 11/05/20 06:00 37.4 C 89 92 11/05/20 05:29 37.5 C 100 H 90 11/05/20 05:28 37.5 C 102 H 134/88 90 11/05/20 05:00 37.5 C 96 H 93
[2020-11-05] MEDS: ACETAMINOPHEN 325 MG TAB PO PRN (18:20)
[2020-11-05] MEDS: MIDAZOLAM HCL 125 MG/250 ML BAG IV SCH (20:55)
[2020-11-05] MEDS: PEPTAMEN INTENSE VHP 1.0 CAL 1,000 ML BAG OG SCH (22:13)
[2020-11-06] MEDS: fentaNYL DRIP 1,250 MCG/250 ML BAG IV SCH ×3 (00:23→16:37)
[2020-11-06] MEDS: INSULIN ASPART 100 UNITS/ML 3 ML PEN SC SCH ×4 (00:34→17:16)
[2020-11-06 04:48] LABS: iSTAT Art Bld Gas pCO2 Correct 55 mmHg (35-46); iSTAT Art Bld Gas pH Corrected 7.407 (7.35-7.45); iSTAT Arterial Blood Gas HCO3 34 meg/L (19-24); iSTAT Arterial Blood Gas pCO2 53 mmHg (35-46); iSTAT Arterial Blood Gas pH 7.42 (7.35-7.45); iSTAT Arterial Blood Gas pO2 59 mmHg (80-95); iSTAT Arterial Blood Gas pO2 C 62; iSTAT Carbon Dioxide 36 mmol/L (24-31); iSTAT Hematocrit 48 % (42-52); iSTAT Hemoglobin 16.3 g/dl (14.0-18.0); iSTAT Potassium 4.2 mmol/L (3.3-5.0); iSTAT Site L Radial; iSTAT Sodium 142 mmol/L (135-144)
[2020-11-06 05:10] LABS: Basophils # (auto) 0.02 K/uL (0-0.2); Basophils % (auto) 0.1 %; Hematocrit (blood only) 48.5 % (42-52); Hemoglobin 15.9 g/dL (14.0-18.0); Immature Granulocytes # (auto) 0.18 K/uL (0.00-0.02); Immature Granulocytes % (auto) 1.2 %; Lymphocytes # (auto) 0.97 K/uL (1.2-3.4); Lymphocytes % (auto) 6.2 %; Mean Corpuscular Hemoglobin 30.3 pg (25-34); Mean Corpuscular Hgb Conc 32.8 g/dL (32-36); Mean Corpuscular Volume 92.6 fL (80-100); Mean Platelet Volume 11.8 fL (7.4-10.4); Monocytes # (auto) 1.81 K/uL (0.11-0.59); Monocytes % (auto) 11.6 %; Neutrophils # (auto) 12.61 K/uL (1.4-6.5); Neutrophils % (auto) 80.9 %; Platelet Count 185 K/uL (130-400); RDW Coefficient of Variation 15.4 % (11.5-14.5); RDW Standard Deviation 52.4 fL (36.4-46.3); Red Blood Count 5.24 M/uL (4.7-6.1); White Blood Count 15.59 K/uL (4.8-10.8)
[2020-11-06 05:12] LABS: BUN Creatinine Ratio 44.9 (10-20); Calcium 9.4 mg/dl (8.5-10.1); Creatinine Clr Calc Pharmacy 102.1 ml/min; Est GFR (African American) 98.3; Est GFR (Non-African American) 84.9; Magnesium 2.5 mg/dl (1.8-2.4); Phosphorus 3.3 mg/dl (2.5-4.9); Potassium 3.9 mmol/L (3.5-5.1)
[2020-11-06] MEDS ORDERED: POTASSIUM CHLORIDE 20 MEQ/15 ML UDC PO STA (05:56)
[2020-11-06] MEDS: ENOXAPARIN INJ 40 MG/0.4 ML SYR SQ SCH ×2 (07:47→21:10)
[2020-11-06] MEDS: NYSTATIN SUSP 500,000 U/5 ML UDC PO SCH ×4 (07:47→21:10)
[2020-11-06] MEDS: POLYETHYLENE (MIRALAX) 17 GM PACK PO SCH (07:47)
[2020-11-06] MEDS: FUROSEMIDE 40 MG in SYRINGE 0 ML IV SCH ×2 (07:47→21:11)
[2020-11-06] MEDS: dexAMETHasone 20 MG in DEXTROSE 5% 25 ML IV SCH (07:47)
[2020-11-06] MEDS: levoFLOXacin/D5W 750 MG/150 ML BAG IV SCH (10:56)
[2020-11-06] MEDS ORDERED: PROPOFOL BOLUS FROM BAG IV PRN (11:26)
[2020-11-06] MEDS ORDERED: STAT IV Infusion **Titration per Protocol STA (11:26)
--- NOTE | 2020-11-06 11:33 | Critical Care Progress Note ---
Date of Service November 06, 2020 Assessment & Plan (1) Acute respiratory distress syndrome (ARDS) due to 2019-nCoV: Reason critically ill: 65 y/o male w/ hx of COPD and YOBANY presents to the ICU evening of / for acute hypoxic respiratory failure from COVID-19 pneumonia. NIV was attempted for several days before mechanical ventilation. Intubation day 8. ICU day 12 24-hour events: Patient vent settings are the same. He did have low-grade fevers yesterday. He is off pressors. He is no longer on paralytics and is able to follow some simple commands. Recommendations Neuro: Continue sedation. Will discontinue Versed as he is been on this for several days due to concerns about potential diluent toxicity. Transition back to propofol and trend triglycerides. Continue fentanyl for now. Cardiac/Vascular: No current issues. Continue to trend Respiratory: ARDS secondary to COVID-19. Blood gas: 7.42/53/59/34. Vent se ttings: PRVC 26/480/12/0 0.50 with I;E ratio of 1:1. P plateau 20. P/F 118. He does have a small left-sided pleural effusion. Do not think he needs to be tapped currently. Given his difficulty weaning, have elected to proceed with dexamethasone at higher doses, 20mg a day for 5 days followed by 10 mg a day for 5days. Briefly discussed tracheostomy with yesterday. She and the daughter are in agreement to proceed and it may be reasonable to pursue tracheostomy early next week if he fails to make significant progress weaning from the ventilator. GI/Nutrition - continue tube feeds 70. Bowel protocol Renal/Lytes - stable, Cr 0.66->0.69. Continue attempts at diuresis. Genitourinary Continue Nowak catheter Endo - continue SSI Heme - stable, continue monitoring ID COVID-19 pneumonia. Continue dexamethasone for late-phase fibroproliferative ARDS. Sputum culture with beta-hemolytic strep and urine culture with Enterococcus. On Levaquin. Still persistent low-grade fevers and white blood cell count is increasing. We will repeat cultures today. His procalcitonin is negative which is somewhat reassuring. May need to have his lines replaced if persistently febrile. Will check duplex of the lower extremities LINES/IV ACCESS: R subclavian CVL, L radial art line, nowak DVT PPX: SCDs, Lovenox 40 mg sq BID GI PPX: not on stress ulcer PPX because OGT feeding Patient remains critically ill with multiorgan system dysfunction on life support. A total of 42 minutes critical care time was spent in evaluation management stabilization of this patient. Family was updated by phone yesterday and will be contacted again today. Discussed with critical care nurse at [facility] (2) Admitted to intensive care unit: (3) UTI (urinary tract infection): Admission and Anticipated Discharge Date Admission Date: October 25, 2020 Subjective Intubated and sedated. The patient is able to open his eyes to verbal stimulus and follow some simple commands. Review of Systems Review of Systems: Unobtainable due to endotracheal tube Physical Exam Constitutional: well developed, + obese and + mechanically ventilated Neck: trachea midline, no thyromegaly Respiratory: Auscultation: + crackles Cardiovascular: Rate/Rhythm: regular rate Heart Sounds: normal S1 and normal S2 Extremities: + edema Gastrointestinal (Abdomen): normal bowel sounds, soft, nontender, no hepatosplenomegaly Musculoskeletal: Extremities: extremities normal to inspection Skin: no rashes, warm and dry Lymphatic: no cervical lymphadenopathy Results & Data Results & Data ([facility]) Vital Signs (Past 12 Hours) Vital Signs Temp Pulse Resp BP Pulse Ox 11/06/20 08:30 37.5 C 82 90 11/06/20 08:05 37.6 C H 88 163/91 H 91 11/06/20 08:04 37.6 C H 93 H 163/100 H 91 11/06/20 08:00 37.5 C 97 H 133/76 90 11/06/20 07:45 96 H 27 H 92 11/06/20 07:30 37.5 C 95 H 91 11/06/20 07:05 37.5 C 91 H 154/97 H 91 11/06/20 07:00 37.5 C 97 H 92 11/06/20 06:45 37.5 C 89 91 11/06/20 06:05 37.5 C 85 136/78 90 11/06/20 06:00 37.5 C 84 89 L 11/06/20 05:50 37.5 C 85 141/86 H 90 11/06/20 05:05 37.6 C H 93 H 138/78 89 L 11/06/20 04:06 37.9 C H 98 H 90 11/06/20 04:05 37.9 C H 102 H 129/84 90 11/06/20 04:00 37.9 C H 101 H 28 H 91 11/06/20 03:05 38.2 C H 88 131/87 88 L 11/06/20 03:02 38.2 C H 94 H 101/69 91 11/06/20 03:00 38.2 C H 76 91 11/06/20 01:05 38.2 C H 79 101/69 91 11/06/20 00:54 38.2 C H 79 111/74 91 11/06/20 00:05 38.2 C H 79 100/70 92 11/06/20 00:00 38.2 C H 77 91 11/05/20 23:46 78 11/05/20 23:33 27 H 11/05/20 23:05 38.2 C H 80 110/71 92 I/O: -[id number] Laboratory Results 11/06/20 04:33 11/06/20 04:33 No new culture data Diagnostic Findings Chest x-ray today was independently reviewed and compared to prior films. There is a small left-sided pleural effusion but otherwise lung parenchyma appears relatively free of infiltrate. Tubes and lines are in good position. Coding Level of Care Code Critical Care 1st 30-74 mins Diagnoses Acute respiratory distress syndrome (ARDS) due to 2019-nCoV U07.1; J80 Admitted to intensive care unit Z78.9 UTI (urinary tract infection) N39.0
[2020-11-06] MEDS: propofoL 1,000 MG/100 ML VIAL IV SCH ×3 (12:01→22:43)
--- NOTE | 2020-11-06 12:26 | XRay Report ---
SINGLE VIEW CHEST CLINICAL HISTORY: Respiratory failure. FINDINGS: 2 AP, portable, semierect chest radiographs are compared to study dated 11/05/2020. The exam ination is degraded by portable technique, apical lordotic positioning, and patient rotation. A righ t subclavian central venous catheter, an enteric tube, and an endotracheal tube are unchanged in posi tion. The heart is mildly enlarged. Emphysema and chronic interstitial thickening is similar to previ ous. Multifocal interstitial airspace consolidations again seen throughout both lungs, greatest at th e left lung base. Left larger than right pleural effusions are noted. No pneumothorax is seen. The [facility] thorax is grossly intact. IMPRESSION: 1. Stable lines and tubes. 2. Cardiomegaly and emphysema. 3. Multifocal airspace consolidation is unchanged, as are small pleural effusions. ACT 112: Negative or not required by law. Electronically signed by: Kevyn Rodriguez M.D. 11/06/2020 12:25 PM
--- NOTE | 2020-11-06 12:49 | Ultrasound Report ---
ULTRASOUND BILATERAL LOWER EXTREMITY VENOUS CLINICAL HISTORY: Lower extremity edema. COMPARISON STUDY: Bilateral lower extremity venous ultrasound dated 08/10/2011 TECHNIQUE: Portable real-time, grayscale, and color Doppler sonography of the deep veins of the right and left lower extremity was performed from the inguinal crease to the calf. Compression and augment ation were utilized. FINDINGS: There is no sonographic evidence of deep venous thrombosis identified in the right or left lower extremity. The common femoral, superficial femoral, and popliteal veins are patent and normally compressible bilaterally. The greater saphenous vein and the profunda femoris vein at the junction w ith the common femoral vein are clear in both legs. The visualized calf veins are patent bilaterally. IMPRESSION: There is no sonographic evidence of deep venous thrombosis identified in the right or lef t lower extremity. ACT 112: Negative or not required by law. Electronically signed by: Kevyn Rodriguez M.D. 11/06/2020 12:48 PM
[2020-11-06] MEDS: ACETAMINOPHEN 325 MG TAB PO PRN (13:56)
--- NOTE | 2020-11-06 16:48 | Hospitalist Progress Note ---
Date of Service November 06, 2020 Assessment & Plan (1) Pneumonia due to COVID-19 virus: (2) Acute respiratory failure with hypoxia: ARDS secondary to COVID-19 Went to see his PCP for a Covid test and noted to have very low saturation and was sent in the emergency room COVID-19 test came back positive Sedated with versed and fentanyl drip and intubated Day#8 Mechanical Vent support CXR showed cardiomegaly and emphysema. Multifocal airspace consolidation is unchanged. Sputum cx grew group B strep Continue IV levaquin Continue weaning trial daily as per skein yarn drier Continue tube feeding Continue IV dexamethasone Jackson fever today and blood cx repeated today If unable to wean from the vent, might consider tracheostomy (3) UTI (urinary tract infection): Urine cx grew enterococcus faecalis Was starting on IV levaquin Continue monitor closely (4) COPD exacerbation: Mostly due to COVID 19 History of COPD and is noncompliant and continue o smoke Counseling on smoking cessation Continue IV dexamethasone (5) Sleep apnea: History of sleep apnea and is noncompliant with CPAP (6) Hearing deficit: Has hearing deficit as per chart DVT prophylaxis Lovenox subcu CODE STATUS Full Disposition Continue monitor in the ICU Admission and Anticipated Discharge Date Admission Date: October 25, 2020 Subjective Pt was seen and examined for respiratory failure Sedated and intubated on mechanical ventilation support He was remained awake during my encounter He had a low grade fever today Physical Exam Physical Exam: General- Sedated Head- atraumatic Eyes- PERRL, EOMI, ENT- Intubated Neck- supple, no JVD Lungs- clear to auscultation Heart- regular rhythm; no murmur Abdomen- normal bowel sounds, soft Neuro- Sedated Results & Data Results & Data ([facility]) Vital Signs (Past 12 Hours) Vital Signs Temp Pulse Resp BP Pulse Ox 11/06/20 15:36 75 120/72 11/06/20 15:30 38.1 C H 75 26 H 90 11/06/20 15:05 38.2 C H 76 116/74 91 11/06/20 15:00 38.2 C H 76 91 11/06/20 14:30 38.2 C H 76 91 11/06/20 14:05 38.1 C H 76 110/67 91 11/06/20 14:00 38.1 C H 75 91 11/06/20 13:30 38.1 C H 75 91 11/06/20 13:05 38.0 C H 76 118/71 91 11/06/20 13:00 38.0 C H 77 91 11/06/20 12:30 37.9 C H 81 90 11/06/20 12:05 37.8 C H 88 121/79 88 L 11/06/20 12:00 37.8 C H 96 H 117/86 87 L 11/06/20 11:40 115 H 27 H 91 11/06/20 11:30 37.8 C H 94 H 89 L 11/06/20 11:05 37.7 C H 106 H 157/95 H 89 L 11/06/20 11:00 37.7 C H 94 H 89 L 11/06/20 10:30 37.7 C H 86 87 L 11/06/20 10:05 37.6 C H 107 H 172/113 H 88 L 11/06/20 10:00 37.6 C H 102 H 89 L 11/06/20 09:30 37.6 C H 92 H 89 L 11/06/20 09:05 37.5 C 84 143/92 H 89 L 11/06/20 09:00 37.5 C 82 88 L 11/06/20 08:30 37.5 C 82 90 11/06/20 08:05 37.6 C H 88 163/91 H 91 11/06/20 08:04 37.6 C H 93 H 163/100 H 91 11/06/20 08:00 37.5 C 97 H 133/76 90 11/06/20 07:45 96 H 27 H 92 11/06/20 07:30 37.5 C 95 H 91 11/06/20 07:05 37.5 C 91 H 154/97 H 91 11/06/20 07:00 37.5 C 97 H 92 11/06/20 06:45 37.5 C 89 91 11/06/20 06:05 37.5 C 85 136/78 90 11/06/20 06:00 37.5 C 84 89 L 11/06/20 05:50 37.5 C 85 141/86 H 90 11/06/20 05:05 37.6 C H 93 H 138/78 89 L
[2020-11-06] MEDS: PEPTAMEN INTENSE VHP 1.0 CAL 1,000 ML BAG OG SCH (17:16)
[2020-11-06 22:49] LABS: Appearance Urine Clear (Clear); Bacteria Urine Automated Negative (Negative); Bilirubin Urine Negative (Negative); Blood Urine 2+ (Negative); Color Urine Yellow; Glucose Urine UA Negative (Negative); Ketones Urine Negative (Negative); Leukocyte Esterase Urine Negative (Negative); Nitrite Urine Negative (Negative); Protein Urine Negative (Negative); Specific Gravity Urine 1.009 (1.000-1.030); Urobilinogen Urine Negative (Negative); pH Urine 6.5 (4.5-7.5)
[2020-11-07] MEDS: fentaNYL DRIP 1,250 MCG/250 ML BAG IV SCH ×2 (00:01→08:59)
[2020-11-07] MEDS: INSULIN ASPART 100 UNITS/ML 3 ML PEN SC SCH ×4 (00:05→17:28)
[2020-11-07 01:23] LABS: iSTAT Art Bld Gas pCO2 Correct 50 mmHg (35-46); iSTAT Arterial Blood Gas HCO3 33 meg/L (19-24); iSTAT Arterial Blood Gas pCO2 48 mmHg (35-46); iSTAT Arterial Blood Gas pH 7.44 (7.35-7.45); iSTAT Arterial Blood Gas pO2 56 mmHg (80-95); iSTAT Arterial Blood Gas pO2 C 59; iSTAT Carbon Dioxide 34 mmol/L (24-31); iSTAT Hematocrit 47 % (42-52); iSTAT Potassium 3.8 mmol/L (3.3-5.0); iSTAT Site Art Line; iSTAT Sodium 143 mmol/L (135-144)
[2020-11-07 03:52] LABS: iSTAT Art Bld Gas pCO2 Correct 55 mmHg (35-46); iSTAT Art Bld Gas pH Corrected 7.398 (7.35-7.45); iSTAT Arterial Blood Gas HCO3 33 meg/L (19-24); iSTAT Arterial Blood Gas pCO2 52 mmHg (35-46); iSTAT Arterial Blood Gas pH 7.41 (7.35-7.45); iSTAT Arterial Blood Gas pO2 66 mmHg (80-95); iSTAT Arterial Blood Gas pO2 C 71; iSTAT Carbon Dioxide 35 mmol/L (24-31); iSTAT Hematocrit 50 % (42-52); iSTAT Potassium 3.5 mmol/L (3.3-5.0); iSTAT Site Art Line; iSTAT Sodium 144 mmol/L (135-144)
[2020-11-07] MEDS: propofoL 1,000 MG/100 ML VIAL IV SCH ×3 (04:46→12:51)
[2020-11-07 05:43] LABS: Hematocrit (blood only) 50.2 % (42-52); Hemoglobin 16.4 g/dL (14.0-18.0); Mean Corpuscular Hemoglobin 30.3 pg (25-34); Mean Corpuscular Hgb Conc 32.7 g/dL (32-36); Mean Corpuscular Volume 92.8 fL (80-100); Platelet Count 168 K/uL (130-400); RDW Coefficient of Variation 15.5 % (11.5-14.5); RDW Standard Deviation 52.8 fL (36.4-46.3); Red Blood Count 5.41 M/uL (4.7-6.1)
[2020-11-07 06:06] LABS: Basophils # (auto) 0.01 K/uL (0-0.2); Immature Granulocytes # (auto) 0.18 K/uL (0.00-0.02); Immature Granulocytes % (auto) 0.9 %; Lymphocytes # (auto) 2.73 K/uL (1.2-3.4); Lymphocytes % (auto) 13.1 %; Monocytes # (auto) 1.07 K/uL (0.11-0.59); Monocytes % (auto) 5.1 %; Neutrophils # (auto) 16.81 K/uL (1.4-6.5); Neutrophils % (auto) 80.9 %; RBC Morphology Unremarkable
[2020-11-07 06:12] LABS: BUN Creatinine Ratio 52.7 (10-20); Calcium 9.6 mg/dl (8.5-10.1); Creatinine Clr Calc Pharmacy 93.2 ml/min; Est GFR (African American) 89.2; Est GFR (Non-African American) 76.9; Magnesium 2.8 mg/dl (1.8-2.4); Phosphorus 3.5 mg/dl (2.5-4.9); Potassium 3.4 mmol/L (3.5-5.1)
[2020-11-07] MEDS ORDERED: POTASSIUM CHLORIDE 20 MEQ/15 ML UDC PO STA (06:34)
[2020-11-07] MEDS ORDERED: POTASSIUM CHLORIDE / WTR 20 MEQ/100 ML PLCT IV ONE (06:45)
[2020-11-07] MEDS: ENOXAPARIN INJ 40 MG/0.4 ML SYR SQ SCH ×2 (07:27→20:45)
[2020-11-07] MEDS: FUROSEMIDE 40 MG in SYRINGE 0 ML IV SCH (07:27)
[2020-11-07] MEDS: POLYETHYLENE (MIRALAX) 17 GM PACK PO SCH (07:27)
[2020-11-07] MEDS: NYSTATIN SUSP 500,000 U/5 ML UDC PO SCH ×4 (07:27→20:46)
[2020-11-07] MEDS: dexAMETHasone 20 MG in DEXTROSE 5% 25 ML IV SCH (07:28)
--- NOTE | 2020-11-07 08:38 | Critical Care Progress Note ---
Date of Service November 07, 2020 Assessment & Plan (1) Acute respiratory distress syndrome (ARDS) due to 2019-nCoV: Reason critically ill: 65 y/o male w/ hx of COPD and YOBANY presents to the ICU evening of 10/25 for acute hypoxic respiratory failure from COVID-19 pneumonia. NIV was attempted for several days before mechanical ventilation. Intubation day 9. ICU day 13 24-hour events: Patient vent settings are the same. He did have low-grade fevers yesterday. He is off pressors. He is no longer on paralytics and is able to follow some simple commands. Recommendations Neuro: Continue sedation. Will discontinue Versed as he is been on this for several days due to concerns about potential diluent toxicity. Transition back to propofol and trend triglycerides. Continue fentanyl for now. Cardiac/Vascular: No current issues. Continue to trend Respiratory: ARDS secondary to COVID-19. Tolerating PS ventilation Peep 8 FiO2 40% maintains saturation >91% He does have a small left-sided pleural effusion. Do not think he needs to be tapped currently. Given his difficulty weaning, have elected to proceed with dexamethasone at higher doses, 20mg a day for 5 days followed by 10 mg a day for 5days. Briefly discussed tracheostomy with . Discussed with if patient fails trial of extubation he would likely be candidate for tracheostomy, in agreement we will proceed with trial of extubation today GI/Nutrition - continue tube feeds, adjust for propofol infusion, bowel protocol -Holding for possible/probable extubation Renal/Lytes -Acute kidney injury Baseline 0.6 currently 0.9-1 hold additional diuresis Genitourinary Continue Nowak catheter Endo - continue SSI Heme - stable, continue monitoring ID COVID-19 pneumonia. Continue dexamethasone for late-phase fibroproliferative ARDS. Sputum culture with beta-hemolytic strep and urine culture with Enterococcus. On Levaquin. Still persistent low-grade fevers and white blood cell count is increasing (on steroids). await cultures. Continued low grade temps, may need to have his lines replaced if persistently febrile. duplex of the lower extremities: Negative LINES/IV ACCESS: R subclavian CVL, L radial art line, nowak DVT PPX: SCDs, Lovenox 40 mg sq BID GI PPX: not on stress ulcer PPX because OGT feeding Patient was discussed in multidisciplinary rounds (2) Admitted to intensive care unit: (3) UTI (urinary tract infection): Admission and Anticipated Discharge Date Admission Date: October 25, 2020 Supervising Physician Co-Signing Physician Notes Could consider tracheostomy at some point however the hope is that the patient will continue to improve from a respiratory standpoint and that this would not be necessary. He does not have insurance so long-term acute care facility is not an option for him. I have personally spent 45 minutes of critical care time in the direct management of this patient. This is a life/limb threatening event. This includes time spent evaluating patient, direct bedside care, chart review, placing orders, interpretation of diagnostic studies, discussion with consultants, patient, and/or family members regarding treatment decisions, as well as other required patient management activities. This time is exclusive of all separately billable procedures, and teaching time and separate from and in addition to any other critical care service time. Subjective No overnight events patient remains intubated Review of Systems Review of Systems: Unobtainable due to endotracheal tube Physical Exam Physical Exam: General: Sedated. nontoxic. Skin: Warm, dry, Head: Atraumatic Ears, nose, mouth and throat: Obscured by endotracheal tube Cardiovascular: Normal peripheral perfusion Respiratory: no respiratory distress, ventilator settings reviewed Gastrointestinal: Non distended Musculoskeletal: No deformity Results & Data Results & Data ([facility]) Vital Signs (Past 12 Hours) Vital Signs Temp Pulse Resp BP Pulse Ox 11/07/20 07:20 75 27 H 90 11/07/20 04:36 37.8 C H 93 H 120/86 88 L 11/07/20 04:06 37.9 C H 99 H 132/100 90 11/07/20 04:00 37.9 C H 91 H 91 11/07/20 03:45 92 H 26 H 92 11/07/20 03:36 37.9 C H 85 145/97 H 90 11/07/20 03:06 38.0 C H 73 116/78 91 11/07/20 02:36 38.0 C H 74 128/80 91 11/07/20 02:07 38.0 C H 73 90 11/07/20 02:06 38.0 C H 72 112/75 90 11/07/20 02:00 38.0 C H 72 89 L 11/07/20 01:36 37.9 C H 74 118/73 89 L 11/07/20 01:15 37.9 C H 75 91/68 L 87 L 11/07/20 01:12 37.8 C H 74 98/67 L 88 L 11/07/20 01:10 37.8 C H 75 101/62 87 L 11/07/20 01:05 37.8 C H 75 105/63 86 L 11/07/20 00:05 37.7 C H 81 114/64 84 L 11/07/20 00:00 37.7 C H 91 H 85 L 11/06/20 23:23 92 H 26 H 89 L 11/06/20 23:05 37.8 C H 90 141/84 H 90 11/06/20 22:06 37.9 C H 70 107/70 88 L 11/06/20 22:05 37.9 C H 70 107/70 88 L 11/06/20 22:00 37.9 C H 70 88 L 11/06/20 21:05 37.9 C H 70 102/60 89 L Laboratory Results 11/07/20 11/07/20 11/07/20 Range/Units 05:32 05:24 05:24 WBC 20.80 H (4.8-10.8) K/uL RBC 5.41 (4.7-6.1) M/uL Hgb 16.4 (14.0-18.0) g/dL POC Hgb (14.0-18.0) g/dl Hct 50.2 (42-52) % POC Hct (42-52) % MCV 92.8 (80-100) fL MCH 30.3 (25-34) pg MCHC 32.7 (32-36) g/dL RDW Std Deviation 52.8 H (36.4-46.3) fL RDW Coeff of Rian 15.5 H (11.5-14.5) % Plt Count 168 (130-400) K/uL MPV 12.0 H (7.4-10.4) fL Immature Gran % (Auto) 0.9 % Neut % (Auto) 80.9 % Lymph % (Auto) 13.1 % [place] % (Auto) 5.1 % Eos % (Auto) 0.0 % Baso % (Auto) 0.0 % Neut # (Auto) 16.81 H (1.4-6.5) K/uL Lymph # (Auto) 2.73 (1.2-3.4) K/uL [place] # (Auto) 1.07 H (0.11-0.59) K/uL Eos # (Auto) 0.00 (0-0.5) K/uL Baso # (Auto) 0.01 (0-0.2) K/uL Immature Gran # (Auto) 0.18 H (0.00-0.02) K/uL RBC Morphology Unremarkable Sample Site POC pH (7.35-7.45) POC pCO2 (35-46) mmHg POC pO2 (80-95) mmHg POC HCO3 (19-24) gian/L POC Total CO2 (24-31) mmol/L POC Base Excess (-9-1.8) gian/L ABG pH (Temp Correct) (7.35-7.45) ABG pCO2 (Temp Corrct (35-46) mmHg POC ABG pO2 at Pt Temp POC ABG O2 Sat (90-95) % Stuart Test O2 Delivery Device POC O2 Rate Tidal Volume PEEP POC Sodium (135-144) mmol/L Sodium 143 (136-145) mmol/L POC Potassium (3.3-5.0) mmol/L Potassium 3.4 L (3.5-5.1) mmol/L Chloride 107 (98-107) mmol/L Carbon Dioxide 30 (21-32) mmol/L Anion Gap 6.0 (3-11) BUN 54 H (7-18) mg/dl Creatinine 1.03 (0.6-1.4) mg/dl Est Cr Clr Drug Dosing 93.2 ml/min Est GFR ( Amer) 89.2 Est GFR (Non-Af Amer) 76.9 BUN/Creatinine Ratio 52.7 H (10-20) Glucose 185 H (70-99) mg/dl POC Glucose 174 H (70-99) mg/dl Calcium 9.6 (8.5-10.1) mg/dl Phosphorus 3.5 (2.5-4.9) mg/dl Magnesium 2.8 H (1.8-2.4) mg/dl Triglycerides 227 H (0-150) mg/dl Urine Color Urine Appearance (Clear) Urine pH (4.5-7.5) Ur Specific [place] (1.000-1.030) Urine Protein (Negative) Urine Glucose (UA) (Negative) Urine Ketones (Negative) Urine Blood (Negative) Urine Nitrite (Negative) Urine Bilirubin (Negative) Urine Urobilinogen (Negative) Ur Leukocyte Esterase (Negative) Urine WBC (Auto) (0-5) /hpf Urine RBC (Auto) (0-4) /hpf U Hyaline Cast (Auto) (0-5) /lpf U Epithel Cells (Auto) (0-5) /lpf Urine Bacteria (Auto) (Negative) 11/07/20 11/07/20 11/07/20 Range/Units 03:39 01:10 00:00 WBC (4.8-10.8) K/uL RBC (4.7-6.1) M/uL Hgb (14.0-18.0) g/dL POC Hgb 17.0 16.0 (14.0-18.0) g/dl Hct (42-52) % POC Hct 50 47 (42-52) % MCV (80-100) fL MCH (25-34) pg MCHC (32-36) g/dL RDW Std Deviation (36.4-46.3) fL RDW Coeff of Rian (11.5-14.5) % Plt Count (130-400) K/uL MPV (7.4-10.4) fL Immature Gran % (Auto) % Neut % (Auto) % Lymph % (Auto) % [place] % (Auto) % Eos % (Auto) % Baso % (Auto) % Neut # (Auto) (1.4-6.5) K/uL Lymph # (Auto) (1.2-3.4) K/uL [place] # (Auto) (0.11-0.59) K/uL Eos # (Auto) (0-0.5) K/uL Baso # (Auto) (0-0.2) K/uL Immature Gran # (Auto) (0.00-0.02) K/uL RBC Morphology Sample Site Art Line Art Line POC pH 7.41 7.44 (7.35-7.45) POC pCO2 52 H 48 H (35-46) mmHg POC pO2 66 L 56 L (80-95) mmHg POC HCO3 33 H 33 H (19-24) gian/L POC Total CO2 35 H 34 H (24-31) mmol/L POC Base Excess 9.0 H 9.0 H (-9-1.8) gian/L ABG pH (Temp Correct) 7.398 7.430 (7.35-7.45) ABG pCO2 (Temp Corrct 55 H 50 H (35-46) mmHg POC ABG pO2 at Pt Temp 71 59 POC ABG O2 Sat 93.0 89.0 L (90-95) % Stuart Test NA NA O2 Delivery Device Ventilator Ventilator POC O2 Rate 26 26 Tidal Volume 480 480 PEEP 10 10 POC Sodium 144 143 (135-144) mmol/L Sodium (136-145) mmol/L POC Potassium 3.5 3.8 (3.3-5.0) mmol/L Potassium (3.5-5.1) mmol/L Chloride (98-107) mmol/L Carbon Dioxide (21-32) mmol/L Anion Gap (3-11) BUN (7-18) mg/dl Creatinine (0.6-1.4) mg/dl Est Cr Clr Drug Dosing ml/min Est GFR ( Amer) Est GFR (Non-Af Amer) BUN/Creatinine Ratio (10-20) Glucose (70-99) mg/dl POC Glucose 178 H (70-99) mg/dl Calcium (8.5-10.1) mg/dl Phosphorus (2.5-4.9) mg/dl Magnesium (1.8-2.4) mg/dl Triglycerides (0-150) mg/dl Urine Color Urine Appearance (Clear) Urine pH (4.5-7.5) Ur Specific [place] (1.000-1.030) Urine Protein (Negative) Urine Glucose (UA) (Negative) Urine Ketones (Negative) Urine Blood (Negative) Urine Nitrite (Negative) Urine Bilirubin (Negative) Urine Urobilinogen (Negative) Ur Leukocyte Esterase (Negative) Urine WBC (Auto) (0-5) /hpf Urine RBC (Auto) (0-4) /hpf U Hyaline Cast (Auto) (0-5) /lpf U Epithel Cells (Auto) (0-5) /lpf Urine Bacteria (Auto) (Negative) 11/06/20 11/06/20 11/06/20 Range/Units 21:42 17:12 11:04 WBC (4.8-10.8) K/uL RBC (4.7-6.1) M/uL Hgb (14.0-18.0) g/dL POC Hgb (14.0-18.0) g/dl Hct (42-52) % POC Hct (42-52) % MCV (80-100) fL MCH (25-34) pg MCHC (32-36) g/dL RDW Std Deviation (36.4-46.3) fL RDW Coeff of Rian (11.5-14.5) % Plt Count (130-400) K/uL MPV (7.4-10.4) fL Immature Gran % (Auto) % Neut % (Auto) % Lymph % (Auto) % [place] % (Auto) % Eos % (Auto) % Baso % (Auto) % Neut # (Auto) (1.4-6.5) K/uL Lymph # (Auto) (1.2-3.4) K/uL [place] # (Auto) (0.11-0.59) K/uL Eos # (Auto) (0-0.5) K/uL Baso # (Auto) (0-0.2) K/uL Immature Gran # (Auto) (0.00-0.02) K/uL RBC Morphology Sample Site POC pH (7.35-7.45) POC pCO2 (35-46) mmHg POC pO2 (80-95) mmHg POC HCO3 (19-24) gian/L POC Total CO2 (24-31) mmol/L POC Base Excess (-9-1.8) gian/L ABG pH (Temp Correct) (7.35-7.45) ABG pCO2 (Temp Corrct (35-46) mmHg POC ABG pO2 at Pt Temp POC ABG O2 Sat (90-95) % Stuart Test O2 Delivery Device POC O2 Rate Tidal Volume PEEP POC Sodium (135-144) mmol/L Sodium (136-145) mmol/L POC Potassium (3.3-5.0) mmol/L Potassium (3.5-5.1) mmol/L Chloride (98-107) mmol/L Carbon Dioxide (21-32) mmol/L Anion Gap (3-11) BUN (7-18) mg/dl Creatinine (0.6-1.4) mg/dl Est Cr Clr Drug Dosing ml/min Est GFR ( Amer) Est GFR (Non-Af Amer) BUN/Creatinine Ratio (10-20) Glucose (70-99) mg/dl POC Glucose 166 H 179 H (70-99) mg/dl Calcium (8.5-10.1) mg/dl Phosphorus (2.5-4.9) mg/dl Magnesium (1.8-2.4) mg/dl Triglycerides (0-150) mg/dl Urine Color Yellow Urine Appearance Clear (Clear) Urine pH 6.5 (4.5-7.5) Ur Specific [place] 1.009 (1.000-1.030) Urine Protein Negative (Negative) Urine Glucose (UA) Negative (Negative) Urine Ketones Negative (Negative) Urine Blood 2+ H (Negative) Urine Nitrite Negative (Negative) Urine Bilirubin Negative (Negative) Urine Urobilinogen Negative (Negative) Ur Leukocyte Esterase Negative (Negative) Urine WBC (Auto) 1-5 (0-5) /hpf Urine RBC (Auto) 10-30 H (0-4) /hpf U Hyaline Cast (Auto) 1-5 (0-5) /lpf U Epithel Cells (Auto) 5-10 H (0-5) /lpf Urine Bacteria (Auto) Negative (Negative) Coding Level of Care Code Critical Care 1st 30-74 mins Diagnoses Acute respiratory distress syndrome (ARDS) due to 2019-nCoV U07.1; J80 Admitted to intensive care unit Z78.9 UTI (urinary tract infection) N39.0
--- NOTE | 2020-11-07 09:45 | XRay Report ---
SINGLE VIEW CHEST CLINICAL HISTORY: Respiratory failure. FINDINGS: 2 AP, portable, upright chest radiographs are compared to study dated 11/06/2020. The examin ation is degraded by portable technique, apical lordotic positioning, and patient rotation. A right subclavian central venous catheter, an enteric tube, and an endotracheal tube are unchanged in positi on. The heart is mildly enlarged. Emphysema and chronic interstitial thickening is similar to previou s. Multifocal interstitial airspace consolidation is again seen throughout both lungs, greatest at th e left lung base. A left pleural effusion persists. No pneumothorax is seen. The bony thorax is gross ly intact. IMPRESSION: 1. Stable lines and tubes. 2. Cardiomegaly and emphysema. 3. Multifocal airspace consolidation is unchanged, as is a left pleural effusion. ACT 112: Negative or not required by law. Electronically signed by: Kevyn Rodriguez M.D. 11/07/2020 9:44 AM
[2020-11-07 11:45] LABS: iSTAT Arterial Blood Gas HCO3 30 meg/L (19-24); iSTAT Arterial Blood Gas pCO2 50 mmHg (35-46); iSTAT Arterial Blood Gas pH 7.39 (7.35-7.45); iSTAT Arterial Blood Gas pO2 70 mmHg (80-95); iSTAT Carbon Dioxide 32 mmol/L (24-31); iSTAT FiO2 45 %; iSTAT Site Art Line
[2020-11-07] MEDS: levoFLOXacin/D5W 750 MG/150 ML BAG IV SCH (12:40)
--- NOTE | 2020-11-07 19:16 | Hospitalist Progress Note ---
Date of Service November 07, 2020 Assessment & Plan (1) Pneumonia due to COVID-19 virus: (2) Acute respiratory failure with hypoxia: ARDS secondary to COVID-19 Went to see his PCP for a Covid test and noted to have very low saturation and was sent in the emergency room COVID-19 test came back positive Sedated with versed and fentanyl drip and intubated Day#9 Mechanical Vent support CXR showed cardiomegaly and emphysema. Multifocal airspace consolidation is unchanged. Sputum cx grew group B strep Continue IV levaquin Continue weaning trial daily as per inside sales advertising executive Continue tube feeding Continue IV dexamethasone Jackson fever today and blood cx repeated today If unable to wean from the vent, might consider tracheostomy 11/07 S/P extubation today if patient fails trial of extubation he would likely be candidate for tracheostomy in agreement we will proceed with trial of extubation today Continue high flow oxygen currently Continue dexamethasone 20mg daily and levaquin continue monitor closely in the ICU (3) UTI (urinary tract infection): Urine cx grew enterococcus faecalis Was starting on IV levaquin Continue monitor closely (4) COPD exacerbation: Mostly due to COVID 19 History of COPD and is noncompliant and continue o smoke Counseling on smoking cessation Continue IV dexamethasone (5) Sleep apnea: History of sleep apnea and is noncompliant with CPAP (6) Hearing deficit: Has hearing deficit as per chart DVT prophylaxis Lovenox subcu CODE STATUS Full Disposition Continue monitor in the ICU Admission and Anticipated Discharge Date Admission Date: October 25, 2020 Subjective Pt was seen and examined for follow up of respiratory failure Lying in bed with no distress Pt was extubated today and on high flow oxygen supplement Denies any chest pain, palpitation, dizziness and fever Review of Systems Review of Systems: All systems reviewed & are unremarkable except as noted in Subjective Physical Exam Physical Exam: General- no acute distress Head- atraumatic Eyes- PERRL, EOMI, ENT- s/p extubate Neck- supple, no JVD Lungs- diminished BS Heart- +tachycardia, no murmur Abdomen- normal bowel sounds, soft Neuro- awake, follow command, move all extremity Results & Data Results & Data ([facility]) Vital Signs (Past 12 Hours) Vital Signs Temp Pulse Pulse Resp BP Pulse Ox 11/07/20 18:00 37.6 C H 102 H 24 93 11/07/20 17:37 37.6 C H 99 H 18 141/96 H 91 11/07/20 17:30 37.6 C H 104 H 20 91 11/07/20 17:07 37.7 C H 101 H 17 142/93 H 91 11/07/20 17:00 37.7 C H 103 H 20 89 L 11/07/20 16:37 37.6 C H 107 H 19 137/99 90 11/07/20 16:30 37.6 C H 115 H 23 89 L 11/07/20 16:07 37.5 C 103 H 20 156/104 H 92 11/07/20 16:00 37.5 C 108 H 17 89 L 11/07/20 15:37 37.5 C 109 H 23 140/98 89 L 11/07/20 15:33 107 H 140/88 11/07/20 15:30 37.5 C 110 H 22 91 11/07/20 15:22 37.6 C H 104 H 18 141/90 H 89 L 11/07/20 15:11 107 H 22 90 11/07/20 15:07 37.7 C H 106 H 26 H 141/90 H 88 L 11/07/20 15:00 37.7 C H 106 H 19 90 11/07/20 14:37 37.7 C H 105 H 18 139/89 92 11/07/20 14:30 37.7 C H 119 H 25 H 85 L 11/07/20 14:07 37.7 C H 105 H 18 145/82 H 90 11/07/20 14:00 37.7 C H 108 H 24 88 L 11/07/20 13:38 37.6 C H 104 H 22 87 L 11/07/20 13:37 37.6 C H 107 H 19 140/88 86 L 11/07/20 13:30 37.6 C H 112 H 20 87 L 11/07/20 13:07 37.7 C H 102 H 19 141/86 H 91 11/07/20 13:00 37.7 C H 98 H 20 90 11/07/20 12:38 37.7 C H 98 H 14 90 11/07/20 12:37 37.7 C H 102 H 17 139/92 90 11/07/20 12:30 37.7 C H 102 H 17 90 11/07/20 12:25 104 H 18 90 11/07/20 12:23 104 H 90 11/07/20 12:10 37.8 C H 105 H 20 161/90 H 87 L 11/07/20 12:00 37.8 C H 104 H 90 11/07/20 11:36 37.8 C H 94 H 130/87 89 L 11/07/20 11:35 76 11/07/20 11:30 37.8 C H 98 H 90 11/07/20 11:06 37.9 C H 96 H 145/87 H 91 11/07/20 11:00 37.9 C H 101 H 90 11/07/20 10:55 96 H 12 91 11/07/20 10:36 38.0 C H 98 H 127/92 90 11/07/20 10:35 96 H 29 H 90 11/07/20 10:30 38.0 C H 98 H 90 11/07/20 10:06 38.0 C H 87 135/84 89 L 11/07/20 10:00 38.1 C H 88 91 11/07/20 09:36 38.0 C H 76 127/76 90 11/07/20 09:30 38.0 C H 77 91 11/07/20 09:06 38.0 C H 76 127/78 92 11/07/20 09:00 38.0 C H 77 91 11/07/20 08:36 38.0 C H 76 118/78 91 11/07/20 08:30 37.9 C H 76 91 11/07/20 08:06 37.9 C H 73 113/70 91 11/07/20 08:00 37.9 C H 73 97/59 L 91 11/07/20 07:36 37.9 C H 74 107/63 90 11/07/20 07:30 37.9 C H 75 91 11/07/20 07:20 75 27 H 90
[2020-11-08] MEDS: INSULIN ASPART 100 UNITS/ML 3 ML PEN SC SCH ×4 (00:08→17:38)
[2020-11-08 04:35] LABS: Hematocrit (blood only) 51.8 % (42-52); Hemoglobin 17.1 g/dL (14.0-18.0); Mean Corpuscular Hemoglobin 30.5 pg (25-34); Mean Corpuscular Volume 92.5 fL (80-100); Mean Platelet Volume 12.4 fL (7.4-10.4); Platelet Count 161 K/uL (130-400); RDW Coefficient of Variation 15.5 % (11.5-14.5); RDW Standard Deviation 52.6 fL (36.4-46.3); White Blood Count 19.88 K/uL (4.8-10.8)
[2020-11-08 04:58] LABS: Albumin Level 2.5 gm/dl (3.4-5.0); BUN Creatinine Ratio 48.7 (10-20); Calcium 9.3 mg/dl (8.5-10.1); Est GFR (African American) 95.9; Est GFR (Non-African American) 82.7; Magnesium 2.7 mg/dl (1.8-2.4); Potassium 3.9 mmol/L (3.5-5.1)
[2020-11-08 05:00] LABS: Albumin Globulin Ratio 0.5 (0.9-2); Bilirubin,Total 0.7 mg/dl (0.2-1); Globulin 5.4 gm/dl (2.5-4.0); Phosphorus 3.3 mg/dl (2.5-4.9); Total Protein 7.9 gm/dl (6.4-8.2)
[2020-11-08 05:16] LABS: Basophils # (auto) 0.02 K/uL (0-0.2); Basophils % (auto) 0.1 %; Immature Granulocytes # (auto) 0.13 K/uL (0.00-0.02); Immature Granulocytes % (auto) 0.7 %; Lymphocytes # (auto) 2.47 K/uL (1.2-3.4); Lymphocytes % (auto) 12.4 %; Monocytes # (auto) 0.63 K/uL (0.11-0.59); Monocytes % (auto) 3.2 %; Neutrophils # (auto) 16.63 K/uL (1.4-6.5); Neutrophils % (auto) 83.6 %
[2020-11-08] MEDS ORDERED: POTASSIUM CHLORIDE / WTR 10 MEQ/100 ML PLCT IV ONE (05:57)
--- NOTE | 2020-11-08 06:20 | Critical Care Progress Note ---
Date of Service November 08, 2020 Assessment & Plan (1) Admitted to intensive care unit: Reason critically ill: 65 y/o male w/ hx of COPD and YOBANY presents to the ICU evening of 10/25 for acute hypoxic respiratory failure from COVID-19 pneumonia. NIV was attempted for several days before mechanical ventilation. ICU day 14. Extubated on 11/07. Neuro - off vent, no sedation, CAM ICU negative Cardiac/Vascular - blood pressures stable. continue tele. - EKG ordered today to monitor QTc (on Levofloxacin) Respiratory - ARDS secondary to COVID-19, extubated yesterday but high flow requirements increased overnight - satting 92% on 60L/min at 70%FiO2 - CXR today: stable multifocal interstitial opacities - Dexamethasone decreased to standard COVID-19 dosinmg IV, x5 days (starting tomorrow) - start BiPAP QHS GI/Nutrition - extubated yesterday as mentioned above, off of tube feeds, currently NPO (vomited after trial of PO fluids) - advance diet as tolerated Renal/Lytes - ARNOLD, Cr currently 0.9-1 and baseline of 0.6 - hold additional diuresis Genitourinary - UOP 2700cc (0.94 cc/kg/hr) - nowak removed today Endo - continue SSI Heme - stable, continue monitoring ID - COVID-19 pneumonia, improving - extubated yesterday as mentioned above - afebrile since yesterday evening, WBC elevated but stable since starting higher dose Dexamethasone, however sputum cx positive for group B beta-hemolytic strep and urine cx positive for Enterococcus - Dexamethasone decreased to standard COVID-19 dosinmg IV, x5 days (starting tomorrow) - continue Levofloxacin x10 days (today is day 5) - continue Nystatin rinse for thrush LINES/IV ACCESS: R subclavian CVL, L radial art line, nowak DVT PPX: SCDs, Lovenox 40 mg SQ BID GI PPX: not on stress ulcer ppx because OGT feeding CODE STATUS: full code (2) Sleep apnea: (3) Acute respiratory failure with hypoxia: (4) Pneumonia due to COVID-19 virus: (5) COPD mixed type: (6) UTI (urinary tract infection): Admission and Anticipated Discharge Date Admission Date: October 25, 2020 Supervising Physician Co-Signing Physician Notes Dr. Ahn was resident physician during care of patient. I separately evaluated patient for montoya portions of the history and the exam. I was present during the critical portion of medical decision making, and I discussed the case with the resident. I generally agree with the findings and plan. Patient had bowel movement and did not desaturate still requiring high flow nasal cannula will to use CPAP at night patient remains critically ill due to acute hypoxic respiratory failure in the setting of COVID-19. Patient was discussed on multidisciplinary rounds. Patient failed bedside swallow, was able to tolerate ice chips speech will continue to see. QTC: 472 I have personally spent 35 minutes of critical care time in the direct management of this patient. This is a life/limb threatening event. This includes time spent evaluating patient, direct bedside care, chart review, placing orders, interpretation of diagnostic studies, discussion with consultants, patient, and/or family members regarding treatment decisions, as well as other required patient management activities. This time is exclusive of all separately billable procedures, and teaching time and separate from and in addition to any other critical care service time. Subjective No acute events overnight. Reports being thirsty and hungry today but did vomit with trial of fluids yesterday. Review of Systems Review of Systems: Denies fever/chills, chest pain, palpitations, shortness of breath on current high flow settings, pain. Physical Exam Physical Exam: General: A&Ox3. NAD. Cooperative. HEENT: Atraumatic, normocephalic. Pulm: CTAB A&P. -wheezes, -rales, -rhonchi. No increased work of breathing/respiratory distress, current high-flow settings reviewed Cardiac: RRR, -mrg. Radial pulses intact and symmetrical. Abdominal: soft, non-tender, non-distended, hypoactive BS x 4 Results & Data Results & Data ([facility]) Vital Signs (Past 12 Hours) Vital Signs Temp Pulse Pulse Resp BP Pulse Ox 11/08/20 05:07 37.3 C 91 H 18 154/103 H 92 11/08/20 04:47 94 H 18 92 11/08/20 04:37 37.4 C 93 H 16 165/104 H 92 11/08/20 04:07 37.4 C 93 H 16 163/107 H 92 11/08/20 04:00 37.4 C 94 H 22 93 11/08/20 03:37 37.4 C 94 H 19 157/98 H 89 L 11/08/20 03:20 37.3 C 96 H 17 157/99 H 92 11/08/20 03:09 37.3 C 98 H 18 147/109 H 11/08/20 02:37 37.2 C 91 H 16 143/101 H 95 11/08/20 02:15 93 H 18 91 11/08/20 02:07 37.2 C 87 16 148/93 H 93 11/08/20 02:00 37.2 C 94 H 20 86 L 11/08/20 01:37 37.2 C 89 15 137/98 91 11/08/20 01:07 37.2 C 92 H 17 153/103 H 89 L 11/08/20 00:38 37.3 C 95 H 15 90 11/08/20 00:37 37.3 C 95 H 16 146/94 H 90 11/08/20 00:07 37.3 C 96 H 19 129/89 89 L 11/08/20 00:00 37.2 C 92 H 17 90 11/07/20 23:38 37.2 C 95 H 23 155/59 H 90 11/07/20 23:07 37.2 C 89 15 148/95 H 91 11/07/20 22:40 88 17 90 11/07/20 22:37 37.2 C 93 H 16 148/94 H 89 L 11/07/20 22:07 37.3 C 92 H 15 145/96 H 91 11/07/20 22:00 37.3 C 96 H 21 89 L 11/07/20 21:37 37.3 C 93 H 18 133/94 90 11/07/20 21:08 37.3 C 92 H 16 92 11/07/20 21:07 37.3 C 93 H 16 146/97 H 92 11/07/20 20:37 37.4 C 94 H 17 157/90 H 92 11/07/20 20:07 37.4 C 105 H 22 152/101 H 90 11/07/20 20:00 37.4 C 98 H 17 91 11/07/20 19:37 37.4 C 98 H 17 143/95 H 89 L 11/07/20 19:11 102 H 22 87 L 11/07/20 19:07 37.4 C 103 H 24 144/78 H 88 L 11/07/20 18:37 37.5 C 98 H 15 133/91 92 Resident Activity Tracking Resident Involvement: Resident Care Provided Care Provided: Adult Hospital Medicine
[2020-11-08] MEDS: fentaNYL DRIP 1,250 MCG/250 ML BAG IV SCH ×5 (07:43→07:52)
[2020-11-08] MEDS: POLYETHYLENE (MIRALAX) 17 GM PACK PO SCH (08:07)
[2020-11-08] MEDS: NYSTATIN SUSP 500,000 U/5 ML UDC PO SCH ×4 (08:12→21:30)
[2020-11-08] MEDS: ENOXAPARIN INJ 40 MG/0.4 ML SYR SQ SCH ×2 (08:12→21:30)
[2020-11-08] MEDS: dexAMETHasone 20 MG in DEXTROSE 5% 25 ML IV SCH (08:13)
--- NOTE | 2020-11-08 09:23 | XRay Report ---
XR chest 1V portable CLINICAL HISTORY: hypoxia, respiratory failure COMPARISON STUDY: 11/07/2020 FINDINGS: The heart remains enlarged. There are bilateral interstitial opacities with more focal cons olidation at the left lung base. There is a possible small left pleural effusion. There is a right-si ded central venous catheter unchanged in position. Endotracheal tube and nasogastric tubes have been removed[ IMPRESSION: 1. Interval removal of endotracheal tube and nasogastric tube 2. Multifocal interstitial opacities consistent with a multifocal pneumonitis. Possible small left pl eural effusion ACT 112: Negative or not required by law. Electronically signed by: Dharmesh Cardenas M.D. 11/08/2020 9:22 AM
[2020-11-08] MEDS: levoFLOXacin/D5W 750 MG/150 ML BAG IV SCH (12:34)
--- NOTE | 2020-11-08 18:39 | Hospitalist Progress Note ---
Date of Service November 08, 2020 Assessment & Plan (1) Pneumonia due to COVID-19 virus: (2) Acute respiratory failure with hypoxia: ARDS secondary to COVID-19 Went to see his PCP for a Covid test and noted to have very low saturation and was sent in the emergency room COVID-19 test came back positive Sedated with versed and fentanyl drip and intubated Day#9 Mechanical Vent support CXR showed cardiomegaly and emphysema. Multifocal airspace consolidation is unchanged. Sputum cx grew group B strep Continue IV levaquin Continue weaning trial daily as per packaging assembler Continue tube feeding Continue IV dexamethasone Jackson fever today and blood cx repeated today If unable to wean from the vent, might consider tracheostomy 11/08 S/P extubation on 11/07 if patient fails trial of extubation he would likely be candidate for tracheostomy in agreement we will proceed with trial of extubation today Continue high flow oxygen currently Dexamethasone decreased to 6mg daily Continue Levaquin to complete 10 days course (Day 5) continue Nystatin rinse for thrush continue monitor closely in the ICU (3) UTI (urinary tract infection): Urine cx grew enterococcus faecalis Already on Levaquin Continue monitor closely (4) COPD exacerbation: Mostly due to COVID 19 History of COPD and is noncompliant and continue o smoke Counseling on smoking cessation Continue IV dexamethasone, dose decreased to 6mg (5) Sleep apnea: History of sleep apnea and is noncompliant with CPAP (6) Hearing deficit: Has hearing deficit as per chart DVT prophylaxis Lovenox subcu CODE STATUS Full Disposition Continue monitor in the ICU Admission and Anticipated Discharge Date Admission Date: October 25, 2020 Subjective Pt was seen and examined for follow up of respiratory distress Sitting in chair watching TV on high flow oxygen Pt said that he feels much better today He failed bedside swallow evaluation Denies any chest pain, palpitation, dizziness and SOB Physical Exam Physical Exam: General- no acute distress Head- atraumatic Eyes- PERRL, EOMI, ENT- s/p extubate Neck- supple, no JVD Lungs- diminished BS Heart- +tachycardia, no murmur Abdomen- normal bowel sounds, soft Neuro- awake, follow command, move all extremity Results & Data Results & Data ([facility]) Vital Signs (Past 12 Hours) Vital Signs Temp Pulse Pulse Resp BP Pulse Ox 11/08/20 18:00 107 H 19 90 11/08/20 17:54 143/115 H 89 L 11/08/20 17:37 112 H 23 154/113 H 90 11/08/20 17:34 17 127/92 90 11/08/20 17:07 115 H 22 162/117 H 90 11/08/20 17:00 119 H 19 93 11/08/20 16:57 36.8 C 11/08/20 16:37 116 H 21 165/117 H 94 11/08/20 16:08 118 H 23 148/114 H 91 11/08/20 16:00 115 H 23 94 11/08/20 15:38 123 H 20 174/113 H 93 11/08/20 15:09 115 H 20 93 11/08/20 15:07 116 H 22 145/105 H 93 11/08/20 15:06 88 L 11/08/20 15:00 92 11/08/20 14:00 119 H 22 90 11/08/20 13:00 113 H 21 89 L 11/08/20 12:00 36.6 C 110 H 20 92 11/08/20 11:20 101 H 20 91 11/08/20 11:03 103 H 22 142/106 H 11/08/20 11:00 102 H 22 88 L 11/08/20 10:37 102 H 19 164/109 H 92 11/08/20 10:07 102 H 15 156/106 H 92 11/08/20 10:00 96 H 17 90 11/08/20 09:37 103 H 22 150/105 H 91 11/08/20 09:07 102 H 26 H 162/107 H 89 L 11/08/20 09:00 104 H 23 92 11/08/20 08:38 105 H 16 177/112 H 91 11/08/20 08:25 37.5 C 99 H 25 H 137/102 H 94 11/08/20 08:07 37.4 C 94 H 20 158/103 H 89 L 11/08/20 08:00 37.4 C 101 H 17 91 11/08/20 07:37 37.4 C 90 18 157/104 H 92 11/08/20 07:35 98 H 22 92 11/08/20 07:07 37.4 C 96 H 17 156/96 H 89 L 11/08/20 07:00 37.4 C 95 H 15 91 11/08/20 06:37 37.3 C 101 H 20 164/100 H 87 L
[2020-11-09] MEDS: INSULIN ASPART 100 UNITS/ML 3 ML PEN SC SCH ×5 (00:05→20:35)
[2020-11-09] MEDS ORDERED: LABETALOL HCL IV 5 MG/ML 20ML IV STA (03:26)
[2020-11-09] MEDS ORDERED: LABETALOL HCL IV 5 MG/ML 20ML IV ONE (03:27)
[2020-11-09 05:06] LABS: Basophils # (auto) 0.01 K/uL (0-0.2); Basophils % (auto) 0.1 %; Eosinophils # (auto) 0.01 K/uL (0-0.5); Eosinophils % (auto) 0.1 %; Hematocrit (blood only) 55.4 % (42-52); Hemoglobin 18.4 g/dL (14.0-18.0); Immature Granulocytes # (auto) 0.12 K/uL (0.00-0.02); Immature Granulocytes % (auto) 0.6 %; Lymphocytes # (auto) 2.47 K/uL (1.2-3.4); Lymphocytes % (auto) 12.9 %; Mean Corpuscular Hemoglobin 30.4 pg (25-34); Mean Corpuscular Volume 91.6 fL (80-100); Mean Platelet Volume 12.3 fL (7.4-10.4); Monocytes # (auto) 0.69 K/uL (0.11-0.59); Monocytes % (auto) 3.6 %; Neutrophils # (auto) 15.92 K/uL (1.4-6.5); Neutrophils % (auto) 82.7 %; Platelet Count 161 K/uL (130-400); RDW Coefficient of Variation 15.6 % (11.5-14.5); RDW Standard Deviation 52.6 fL (36.4-46.3); Red Blood Count 6.05 M/uL (4.7-6.1); White Blood Count 19.22 K/uL (4.8-10.8)
[2020-11-09 05:22] LABS: Mean Corpuscular Hgb Conc 33.2 g/dL (32-36)
[2020-11-09 05:36] LABS: Albumin Level 2.6 gm/dl (3.4-5.0); BUN Creatinine Ratio 41.9 (10-20); Calcium 9.2 mg/dl (8.5-10.1); Est GFR (African American) 92.4; Est GFR (Non-African American) 79.7; Magnesium 2.8 mg/dl (1.8-2.4); Potassium 4.1 mmol/L (3.5-5.1)
[2020-11-09 05:42] LABS: Albumin Globulin Ratio 0.5 (0.9-2); Bilirubin,Total 1.2 mg/dl (0.2-1); Globulin 5.6 gm/dl (2.5-4.0); Phosphorus 4.1 mg/dl (2.5-4.9); Total Protein 8.2 gm/dl (6.4-8.2)
--- NOTE | 2020-11-09 06:15 | Electrocardiogram Report ---
Test Reason : Blood Pressure : / mmHG Vent. Rate : 099 BPM Atrial Rate : 099 BPM P-R Int : 150 ms QRS Dur : 138 ms QT Int : 368 ms P-R-T Axes : 025 -11 006 degrees QTc Int : 472 ms Normal sinus rhythm Right bundle branch block Abnormal ECG When compared with ECG of 25-OCT-2020 14:39, Premature ventricular complexes are no longer Present Inverted T waves have replaced nonspecific T wave abnormality in Inferior leads Confirmed by Mau Johns ([id number]) on 11/09/2020 6:15:20 AM Referred By: Jorge Luis Duval Confirmed By:Mau Johns
--- NOTE | 2020-11-09 07:46 | Critical Care Progress Note ---
Date of Service November 09, 2020 Assessment & Plan (1) Admitted to intensive care unit: Reason critically ill: 65 y/o male w/ hx of COPD and YOBANY presents to the ICU evening of 10/25 for acute hypoxic respiratory failure from COVID-19 pneumonia. NIV was attempted for several days before mechanical ventilation. ICU day 15. Extubated on 11/07. Neuro - off vent, no sedation, CAM ICU negative Cardiac/Vascular - blood pressures stable. continue tele. - EKG yesterday showed mildly elevated QTc 472; continue Levofloxacin as mentioned below Respiratory - ARDS secondary to COVID-19, extubated yesterday but high flow requirements increased overnight - satting high 80s to very low 90s on 60L/min at 60%FiO2 - CXR yesterday: stable multifocal interstitial opacities - Dexamethasone decreased to standard COVID-19 dosinmg IV, x5 days (today is day 1) - continue BiPAP QHS GI/Nutrition - off of tube feeds, currently tolerating ice chips without nausea/vomiting - repeat swallow study by speech therapy today - advance diet as tolerated Renal/Lytes - ARNOLD, Cr currently 0.9-1 and baseline of 0.6 - hold additional diuresis Genitourinary - UOP 2700cc (0.94 cc/kg/hr) Endo - continue SSI Heme - stable, continue monitoring ID - COVID-19 pneumonia, improving - extubated yesterday as mentioned above - afebrile since yesterday evening, WBC elevated but stable since starting higher dose Dexamethasone, however sputum cx positive for group B beta-hemolytic strep and urine cx positive for Enterococcus - Dexamethasone decreased to standard COVID-19 dosinmg IV, x5 days (today is day 1) - continue Levofloxacin x10 days (today is day 6) - continue Nystatin rinse for thrush LINES/IV ACCESS: PIVx2 intact DVT PPX: SCDs, Lovenox 40 mg SQ BID GI PPX: not on stress ulcer ppx because OGT feeding CODE STATUS: full code Dispo: The patient will be transferred to PCU with tele for further eval /management, as he is improving on high-flow nasal cannula. (2) Sleep apnea: (3) Acute respiratory failure with hypoxia: (4) Pneumonia due to COVID-19 virus: (5) COPD mixed type: (6) UTI (urinary tract infection): Admission and Anticipated Discharge Date Admission Date: October 25, 2020 Supervising Physician Co-Signing Physician Notes Dr. Ahn was resident physician during care of patient. I separately evaluated patient for montoya portions of the history and the exam. I was present during the critical portion of medical decision making, and I discussed the case with the resident. I generally agree with the findings and plan. Discussed at bedside with hospitalist service: Dr. Yin. Patient stable for downgrade as he continues to have decreasing oxygenation requirements. Subjective No acute events overnight. This morning reports being hungry, is tolerating ice chips without N/V or abdominal pain, and is looking forward to advancing diet. Urinating normally since removal of nowak yesterday. Review of Systems Review of Systems: Denies fever/chills, chest pain, palpitations, shortness of breath on current high flow settings, pain. Physical Exam Physical Exam: General: A&Ox3. NAD. Cooperative. HEENT: Atraumatic, normocephalic. Pulm: Decreased air entry bilaterally but no wheezes/crackles. No increased work of breathing/respiratory distress, current high-flow settings reviewed Cardiac: RRR, -mrg. Radial pulses intact and symmetrical. Abdominal: soft, non-tender, non-distended, hypoactive BS x 4 Skin: warm, dry Results & Data Results & Data ([facility]) Vital Signs (Past 12 Hours) Vital Signs Temp Pulse Pulse Resp BP Pulse Ox 11/09/20 06:00 113 H 22 89 L 11/09/20 05:45 114 H 17 126/92 87 L 11/09/20 05:36 115 H 22 89 L 11/09/20 05:00 100 H 21 92 11/09/20 04:54 101 H 20 132/106 H 93 11/09/20 04:00 93 H 19 92 11/09/20 03:45 91 H 16 155/115 H 93 11/09/20 03:42 90 16 93 11/09/20 03:25 101 H 18 92 11/09/20 03:24 100 H 18 175/115 H 92 11/09/20 03:18 37.0 C 11/09/20 03:06 103 H 19 174/133 H 93 11/09/20 03:00 112 H 30 H 89 L 11/09/20 02:59 106 H 18 173/134 H 87 L 11/09/20 02:45 109 H 17 173/127 H 91 11/09/20 02:00 94 H 13 92 11/09/20 01:45 98 H 13 160/120 H 92 11/09/20 01:00 98 H 17 91 11/09/20 00:45 99 H 18 162/122 H 91 11/09/20 00:06 36.9 C 11/09/20 00:01 102 H 20 149/116 H 90 11/09/20 00:00 102 H 18 91 11/08/20 23:45 94 H 13 149/116 H 90 11/08/20 23:00 102 H 16 90 11/08/20 22:45 99 H 16 165/115 H 90 11/08/20 22:00 98 H 17 89 L 11/08/20 21:46 100 H 18 88 L 11/08/20 21:45 101 H 21 151/110 H 89 L 11/08/20 21:00 101 H 20 90 11/08/20 20:45 100 H 19 147/112 H 87 L 11/08/20 20:00 106 H 20 88 L 11/08/20 19:58 37.0 C Resident Activity Tracking Resident Involvement: Resident Care Provided Care Provided: Adult Hospital Medicine
[2020-11-09] MEDS: POLYETHYLENE (MIRALAX) 17 GM PACK PO SCH (08:25)
[2020-11-09] MEDS: NYSTATIN SUSP 500,000 U/5 ML UDC PO SCH ×4 (08:25→20:36)
[2020-11-09] MEDS: dexAMETHasone 6 MG in SYRINGE 0 ML IV SCH (08:25)
[2020-11-09] MEDS: ENOXAPARIN INJ 40 MG/0.4 ML SYR SQ SCH ×2 (08:25→20:35)
--- NOTE | 2020-11-09 08:29 | Hospitalist Progress Note ---
Date of Service November 09, 2020 Assessment & Plan (1) Pneumonia due to COVID-19 virus: (2) Acute respiratory failure with hypoxia: ARDS secondary to COVID-19 Went to see his PCP for a Covid test and noted to have very low saturation and was sent in the emergency room COVID-19 test came back positive Sedated with versed and fentanyl drip and intubated Required Mechanical Vent support CXR showed cardiomegaly and emphysema. Multifocal airspace consolidation is unchanged. Sputum cx grew group B strep Continue IV levaquin Continue tube feeding , swallow study ordered Continue IV dexamethasone Spiked fever and blood cx repeated 11/08 S/P extubation on 11/07 if patient fails trial of extubation he would likely be candidate for tracheostomy Continue high flow oxygen currently Dexamethasone decreased to 6mg daily (plan for 5 days, now day1) Continue Levaquin to complete 10 days course (Day 6) continue Nystatin rinse for thrush Plan to downgrade to PCU (11/09) (3) UTI (urinary tract infection): Urine cx grew enterococcus faecalis Already on Levaquin Continue monitor closely (4) COPD exacerbation: Mostly due to COVID 19 History of COPD and is noncompliant and continues to smoke Counseling on smoking cessation Continue IV dexamethasone, dose decreased to 6mg (5) Sleep apnea: History of sleep apnea and is noncompliant with CPAP (6) Hearing deficit: Has hearing deficit as per chart DVT prophylaxis Lovenox subcu CODE STATUS Full Disposition : downgrade to PCU Admission and Anticipated Discharge Date Admission Date: October 25, 2020 Subjective Patient seen in follow-up of hypoxic failure, ARDS, COVID-19 infection He is sitting in the chair, continues to use high flow nasal cannula currently in ICU Currently has no complaints, says he has occasional cough No chest pain, no nausea no abdominal pain Review of Systems Review of Systems: All systems reviewed & are unremarkable except as noted in HPI & below Respiratory: + cough and + dyspnea Cardiovascular: no chest pain Gastrointestinal: no abdominal pain, no nausea and no vomiting Physical Exam Physical Exam: General: Elderly male, sitting up in the chair, A&Ox3. NAD. On high flow nasal cannula HEENT: Atraumatic, normocephalic. Respiratory: Decreased air entry bilaterally but no wheezes/crackles. currently on HF NC Cardiac: RRR, Radial pulses intact and symmetrical. Abdomen: soft, non-tender, non-distended, obese, hypoactive bowel sounds Extremities: No lower extremity edema, patient moves extremity spontaneously Neuro: Alert and oriented, answering questions appropriately, very hard of hearing, moves extremities spontaneously Skin: warm, dry, multiple tattoos Results & Data Results & Data ([facility]) Vital Signs (Past 12 Hours) Vital Signs Temp Pulse Pulse Resp BP Pulse Ox 11/09/20 08:05 115 H 22 91 11/09/20 06:00 113 H 22 89 L 11/09/20 05:45 114 H 17 126/92 87 L 11/09/20 05:36 115 H 22 89 L 11/09/20 05:00 100 H 21 92 11/09/20 04:54 101 H 20 132/106 H 93 11/09/20 04:00 93 H 19 92 11/09/20 03:45 91 H 16 155/115 H 93 11/09/20 03:42 90 16 93 11/09/20 03:25 101 H 18 92 11/09/20 03:24 100 H 18 175/115 H 92 11/09/20 03:18 37.0 C 11/09/20 03:06 103 H 19 174/133 H 93 11/09/20 03:00 112 H 30 H 89 L 11/09/20 02:59 106 H 18 173/134 H 87 L 11/09/20 02:45 109 H 17 173/127 H 91 11/09/20 02:00 94 H 13 92 11/09/20 01:45 98 H 13 160/120 H 92 11/09/20 01:00 98 H 17 91 11/09/20 00:45 99 H 18 162/122 H 91 11/09/20 00:06 36.9 C 11/09/20 00:01 102 H 20 149/116 H 90 11/09/20 00:00 102 H 18 91 11/08/20 23:45 94 H 13 149/116 H 90 11/08/20 23:00 102 H 16 90 11/08/20 22:45 99 H 16 165/115 H 90 11/08/20 22:00 98 H 17 89 L 11/08/20 21:46 100 H 18 88 L 11/08/20 21:45 101 H 21 151/110 H 89 L 11/08/20 21:00 101 H 20 90 11/08/20 20:45 100 H 19 147/112 H 87 L Laboratory Results 11/09/20 11/09/20 11/09/20 Range/Units 04:40 04:40 00:01 WBC 19.22 H (4.8-10.8) K/uL RBC 6.05 (4.7-6.1) M/uL Hgb 18.4 H (14.0-18.0) g/dL Hct 55.4 H (42-52) % MCV 91.6 (80-100) fL MCH 30.4 (25-34) pg MCHC 33.2 (32-36) g/dL RDW Std Deviation 52.6 H (36.4-46.3) fL RDW Coeff of Rian 15.6 H (11.5-14.5) % Plt Count 161 (130-400) K/uL MPV 12.3 H (7.4-10.4) fL Immature Gran % (Auto) 0.6 % Neut % (Auto) 82.7 % Lymph % (Auto) 12.9 % [place] % (Auto) 3.6 % Eos % (Auto) 0.1 % Baso % (Auto) 0.1 % Neut # (Auto) 15.92 H (1.4-6.5) K/uL Lymph # (Auto) 2.47 (1.2-3.4) K/uL [place] # (Auto) 0.69 H (0.11-0.59) K/uL Eos # (Auto) 0.01 (0-0.5) K/uL Baso # (Auto) 0.01 (0-0.2) K/uL Immature Gran # (Auto) 0.12 H (0.00-0.02) K/uL Sodium 144 (136-145) mmol/L Potassium 4.1 (3.5-5.1) mmol/L Chloride 111 H (98-107) mmol/L Carbon Dioxide 30 (21-32) mmol/L Anion Gap 3.0 (3-11) BUN 42 H (7-18) mg/dl Creatinine 1.00 (0.6-1.4) mg/dl Est Cr Clr Drug Dosing 95.0 ml/min Est GFR ( Amer) 92.4 Est GFR (Non-Af Amer) 79.7 BUN/Creatinine Ratio 41.9 H (10-20) Glucose 153 H (70-99) mg/dl POC Glucose 120 H (70-99) mg/dl Calcium 9.2 (8.5-10.1) mg/dl Phosphorus 4.1 (2.5-4.9) mg/dl Magnesium 2.8 H (1.8-2.4) mg/dl Total Bilirubin 1.2 H D (0.2-1) mg/dl AST 93 H (15-37) U/L ALT 301 H (12-78) U/L Alkaline Phosphatase 100 (45-117) U/L Total Protein 8.2 (6.4-8.2) gm/dl Albumin 2.6 L (3.4-5.0) gm/dl Globulin 5.6 H (2.5-4.0) gm/dl Albumin/Globulin Ratio 0.5 L (0.9-2) 11/08/20 11/08/20 Range/Units 17:32 12:43 WBC (4.8-10.8) K/uL RBC (4.7-6.1) M/uL Hgb (14.0-18.0) g/dL Hct (42-52) % MCV (80-100) fL MCH (25-34) pg MCHC (32-36) g/dL RDW Std Deviation (36.4-46.3) fL RDW Coeff of Rian (11.5-14.5) % Plt Count (130-400) K/uL MPV (7.4-10.4) fL Immature Gran % (Auto) % Neut % (Auto) % Lymph % (Auto) % [place] % (Auto) % Eos % (Auto) % Baso % (Auto) % Neut # (Auto) (1.4-6.5) K/uL Lymph # (Auto) (1.2-3.4) K/uL [place] # (Auto) (0.11-0.59) K/uL Eos # (Auto) (0-0.5) K/uL Baso # (Auto) (0-0.2) K/uL Immature Gran # (Auto) (0.00-0.02) K/uL Sodium (136-145) mmol/L Potassium (3.5-5.1) mmol/L Chloride (98-107) mmol/L Carbon Dioxide (21-32) mmol/L Anion Gap (3-11) BUN (7-18) mg/dl Creatinine (0.6-1.4) mg/dl Est Cr Clr Drug Dosing ml/min Est GFR ( Amer) Est GFR (Non-Af Amer) BUN/Creatinine Ratio (10-20) Glucose (70-99) mg/dl POC Glucose 142 H 143 H (70-99) mg/dl Calcium (8.5-10.1) mg/dl Phosphorus (2.5-4.9) mg/dl Magnesium (1.8-2.4) mg/dl Total Bilirubin (0.2-1) mg/dl AST (15-37) U/L ALT (12-78) U/L Alkaline Phosphatase (45-117) U/L Total Protein (6.4-8.2) gm/dl Albumin (3.4-5.0) gm/dl Globulin (2.5-4.0) gm/dl Albumin/Globulin Ratio (0.9-2) Medications Administered Current Inpatient Medications Acetaminophen (Acetaminophen 325 Mg Tab) 650 mg PO Q4H PRN PRN Reason: Pain or Fever Stop: 11/24/20 20:23 Last Admin: 11/06/20 13:56 Dose: 650 mg Documented by: Albuterol (Albut/Ipratrop 3mg/0.5mg Neb 3 Ml Vial) 3 ml NEB Q6R PRN PRN Reason: Shortness Of Breath Stop: 11/24/20 18:59 Last Admin: 10/28/20 17:38 Dose: 3 ml Documented by: Dextrose (Dextrose 50% 50 Ml Syringe) 25 - 50 ml IV UD PRN; Protocol PRN Reason: Hypoglycemia Protocol Stop: 11/25/20 09:59 Enoxaparin Sodium (Enoxaparin Inj 40 Mg/0.4 Ml Syr) 40 mg SQ Q12 [facility] Stop: 12/01/20 20:59 Last Admin: 11/09/20 08:25 Dose: 40 mg Documented by: Glucagon (Glucagon For Inj 1 Mg Vial) 1 mg IM UD PRN; Protocol PRN Reason: Hypoglycemia Protocol Stop: 11/25/20 09:59 Glucose (Glucose 40% Gel 15 Gm Tube) 15 - 30 gm PO UD PRN; Protocol PRN Reason: Hypoglycemia Protocol Stop: 11/25/20 09:59 Glucose (Glucose 10 Tabs/Tube) 4 - 8 tabs PO UD PRN; Protocol PRN Reason: Hypoglycemia Protocol Stop: 11/25/20 09:59 Levofloxacin/Dextrose (Levaquin/D5w) 750 mg in 150 mls @ 100 mls/hr IV DAILY@1100 [facility]; Protocol Stop: 11/13/20 10:59 Last Infusion: 11/08/20 14:14 Dose: Infused Documented by: Dexamethasone 6 mg/ Syringe 1.5 mls @ 1 mls/min IV QAM [facility] Stop: 11/13/20 09:02 Last Admin: 11/09/20 08:25 Dose: 1 mls/min Documented by: Insulin Aspart (Insulin Aspart 100 Units/Ml 3 Ml Pen) 0 units SC Q6 [facility] Stop: 11/29/20 11:59 Last Admin: 11/09/20 06:01 Dose: Not Given Documented by: Miscellaneous (Carbohydrates For Hypoglycemia ) 15 - 30 gm PO UD PRN PRN Reason: Hypoglycemia Treatment Stop: 11/25/20 09:59 Nystatin (Nystatin Susp 500,000 U/5 Ml Udc) 5 ml PO QID [facility] Stop: 11/14/20 16:59 Last Admin: 11/09/20 08:25 Dose: 5 ml Documented by: Ondansetron HCl (Ondansetron Inj 2 Mg/Ml 2 Ml Vial) 4 mg IV Q6H PRN PRN Reason: Nausea Stop: 11/24/20 20:23 Polyethylene Glycol (Polyethylene (Miralax) 17 Gm Pack) 17 gm PO DAILY [facility] Stop: 11/28/20 10:29 Last Admin: 11/09/20 08:25 Dose: 17 gm Documented by:
--- NOTE | 2020-11-09 12:45 | Billing Data ---
Date of Service November 09, 2020 Coding Level of Care Code 64727 Subseq Hosp Care Lvl 3
[2020-11-09] MEDS: levoFLOXacin/D5W 750 MG/150 ML BAG IV SCH (12:47)
[2020-11-09] MEDS ORDERED: Nursing to Pharmacy Communication SCH (15:45)
[2020-11-09] MEDS ORDERED: METOPROLOL TARTRATE 1 MG/ML VIAL IV SCH (17:00)
[2020-11-09] MEDS: METOPROLOL TARTRATE 1 MG/ML VIAL IV PRN (17:38)
[2020-11-10] MEDS: ENOXAPARIN INJ 40 MG/0.4 ML SYR SQ SCH ×2 (07:48→21:01)
[2020-11-10] MEDS: NYSTATIN SUSP 500,000 U/5 ML UDC PO SCH ×4 (07:49→21:03)
[2020-11-10] MEDS: POLYETHYLENE (MIRALAX) 17 GM PACK PO SCH (07:50)
[2020-11-10] MEDS: dexAMETHasone 6 MG in SYRINGE 0 ML IV SCH (07:50)
--- NOTE | 2020-11-10 07:59 | Hospitalist Progress Note ---
Date of Service November 10, 2020 Assessment & Plan (1) Pneumonia due to COVID-19 virus: (2) Acute respiratory failure with hypoxia: ARDS secondary to COVID-19 Went to see his PCP for a Covid test and noted to have very low saturation and was sent in the emergency room COVID-19 test came back positive Sedated with versed and fentanyl drip and intubated Required Mechanical Vent support CXR showed cardiomegaly and emphysema. Multifocal airspace consolidation is unchanged. Sputum cx grew group B strep Continue IV levaquin Continue tube feeding , swallow study ordered Continue IV dexamethasone Spiked fever and blood cx repeated S/P extubation on 11/07 if patient fails trial of extubation he would likely be candidate for tracheostomy Continue high flow oxygen currently Dexamethasone decreased to 6mg daily (plan for 5 days, now day2) Continue Levaquin to complete 10 days course (Day 7) continue Nystatin rinse for thrush Now downgraded to PCU (as of 11/09) Pulmonary consulted Elevated LFTs - significant increase in ALT to 350s (11/10) - will order liver US -will discuss further w/ GI - possibly d/t COVID - obtain serologies - monitor LFTs (3) UTI (urinary tract infection): Urine cx grew enterococcus faecalis Already on Levaquin Continue monitor closely (4) COPD exacerbation: Mostly due to COVID 19 History of COPD and is noncompliant and continues to smoke Counseling on smoking cessation Continue IV dexamethasone, dose decreased to 6mg (5) Sleep apnea: History of sleep apnea and is noncompliant with CPAP (6) Hearing deficit: Has hearing deficit as per chart DVT prophylaxis Lovenox subcu CODE STATUS Full Disposition : downgrade to PCU Admission and Anticipated Discharge Date Admission Date: October 25, 2020 Subjective Patient seen in follow-up of hypoxic failure, ARDS, COVID-19 infection He is laying in bed, continues to use high flow nasal cannula currently in PCU Currently has no complaints, says he has occasional cough No chest pain, no nausea no abdominal pain Review of Systems Review of Systems: All systems reviewed & are unremarkable except as noted in HPI & below At least ten systems reviewed and negative except as noted in the HPI. Constitutional: + fatigue; no fever and no chills Respiratory: + cough and + dyspnea Cardiovascular: no chest pain and no palpitations Gastrointestinal: no abdominal pain, no nausea and no vomiting Physical Exam Physical Exam: General: Elderly male, sitting up in the bed, A&Ox3. NAD. On high flow nasal cannula HEENT: Atraumatic, normocephalic. Respiratory: Decreased air entry bilaterally but no wheezes/crackles. currently on HF NC Cardiac: RRR, Radial pulses intact and symmetrical. Abdomen: soft, non-tender, non-distended, obese, + bowel sounds Extremities: No lower extremity edema, patient moves extremity spontaneously Neuro: Alert and oriented, answering questions appropriately, very hard of hearing, moves extremities spontaneously Skin: warm, dry, multiple tattoos Results & Data Results & Data ([facility]) Vital Signs (Past 12 Hours) Vital Signs Temp Pulse Pulse Resp BP Pulse Ox 11/10/20 07:26 104 H 22 92 11/10/20 04:27 36.7 C 112 H 22 121/84 92 11/10/20 03:11 111 H 18 92 11/09/20 23:24 36.5 C 108 H 20 123/86 92 11/09/20 22:20 98 H 11/09/20 21:56 106 H 21 91 Medications Administered Current Inpatient Medications Acetaminophen (Acetaminophen 325 Mg Tab) 650 mg PO Q4H PRN PRN Reason: Pain or Fever Stop: 11/24/20 20:23 Last Admin: 11/06/20 13:56 Dose: 650 mg Documented by: Albuterol (Albut/Ipratrop 3mg/0.5mg Neb 3 Ml Vial) 3 ml NEB Q6R PRN PRN Reason: Shortness Of Breath Stop: 11/24/20 18:59 Last Admin: 10/28/20 17:38 Dose: 3 ml Documented by: Dextrose (Dextrose 50% 50 Ml Syringe) 25 - 50 ml IV UD PRN; Protocol PRN Reason: Hypoglycemia Protocol Stop: 11/25/20 09:59 Enoxaparin Sodium (Enoxaparin Inj 40 Mg/0.4 Ml Syr) 40 mg SQ Q12 [facility] Stop: 12/01/20 20:59 Last Admin: 11/10/20 07:48 Dose: 40 mg Documented by: Glucagon (Glucagon For Inj 1 Mg Vial) 1 mg IM UD PRN; Protocol PRN Reason: Hypoglycemia Protocol Stop: 11/25/20 09:59 Glucose (Glucose 40% Gel 15 Gm Tube) 15 - 30 gm PO UD PRN; Protocol PRN Reason: Hypoglycemia Protocol Stop: 11/25/20 09:59 Glucose (Glucose 10 Tabs/Tube) 4 - 8 tabs PO UD PRN; Protocol PRN Reason: Hypoglycemia Protocol Stop: 11/25/20 09:59 Levofloxacin/Dextrose (Levaquin/D5w) 750 mg in 150 mls @ 100 mls/hr IV DAILY@1100 [facility]; Protocol Stop: 11/13/20 10:59 Last Infusion: 11/09/20 14:46 Dose: Infused Documented by: Dexamethasone 6 mg/ Syringe 1.5 mls @ 1 mls/min IV QAM [facility] Stop: 11/13/20 09:02 Last Admin: 11/10/20 07:50 Dose: 1 mls/min Documented by: Insulin Aspart (Insulin Aspart 100 Units/Ml 3 Ml Pen) 0 units SC ACHS [facility] Stop: 12/09/20 16:29 Last Admin: 11/09/20 20:35 Dose: Not Given Documented by: Metoprolol Tartrate (Metoprolol Tartrate 1 Mg/Ml Vial) 2.5 mg IV Q5H PRN PRN Reason: HEART RATE OVER 110 BPM Stop: 12/09/20 16:59 Last Admin: 11/09/20 17:38 Dose: 2.5 mg Documented by: Miscellaneous (Carbohydrates For Hypoglycemia ) 15 - 30 gm PO UD PRN PRN Reason: Hypoglycemia Treatment Stop: 11/25/20 09:59 Nystatin (Nystatin Susp 500,000 U/5 Ml Udc) 5 ml PO QID [facility] Stop: 11/14/20 16:59 Last Admin: 11/10/20 07:49 Dose: 5 ml Documented by: Ondansetron HCl (Ondansetron Inj 2 Mg/Ml 2 Ml Vial) 4 mg IV Q6H PRN PRN Reason: Nausea Stop: 11/24/20 20:23 Polyethylene Glycol (Polyethylene (Miralax) 17 Gm Pack) 17 gm PO DAILY [facility] Stop: 11/28/20 10:29 Last Admin: 11/10/20 07:50 Dose: Not Given Documented by:
[2020-11-10 08:24] LABS: Albumin Level 2.5 gm/dl (3.4-5.0); BUN Creatinine Ratio 36.2 (10-20); Basophils # (auto) 0.01 K/uL (0-0.2); Basophils % (auto) 0.1 %; Calcium 9.5 mg/dl (8.5-10.1); Creatinine Clr Calc Pharmacy 91.6 ml/min; Eosinophils # (auto) 0.01 K/uL (0-0.5); Eosinophils % (auto) 0.1 %; Est GFR (African American) 88.1; Est GFR (Non-African American) 76.1; Hematocrit (blood only) 53.5 % (42-52); Immature Granulocytes # (auto) 0.06 K/uL (0.00-0.02); Immature Granulocytes % (auto) 0.4 %; Lymphocytes # (auto) 1.33 K/uL (1.2-3.4); Lymphocytes % (auto) 8.1 %; Magnesium 2.8 mg/dl (1.8-2.4); Mean Corpuscular Hgb Conc 33.6 g/dL (32-36); Mean Corpuscular Volume 89.2 fL (80-100); Mean Platelet Volume 12.9 fL (7.4-10.4); Monocytes # (auto) 1.42 K/uL (0.11-0.59); Monocytes % (auto) 8.7 %; Neutrophils # (auto) 13.56 K/uL (1.4-6.5); Neutrophils % (auto) 82.6 %; Platelet Count 143 K/uL (130-400); Potassium 4.2 mmol/L (3.5-5.1); RDW Coefficient of Variation 15.5 % (11.5-14.5); RDW Standard Deviation 50.7 fL (36.4-46.3); White Blood Count 16.39 K/uL (4.8-10.8)
[2020-11-10] MEDS: INSULIN ASPART 100 UNITS/ML 3 ML PEN SC SCH ×4 (08:28→21:38)
[2020-11-10] MEDS: METOPROLOL TARTRATE 1 MG/ML VIAL IV PRN (08:42)
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
[2020-11-10 08:51] LABS: Albumin Globulin Ratio 0.5 (0.9-2); Phosphorus 3.2 mg/dl (2.5-4.9); Total Protein 7.5 gm/dl (6.4-8.2)
[2020-11-10] MEDS: levoFLOXacin/D5W 750 MG/150 ML BAG IV SCH (11:57)
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
--- NOTE | 2020-11-10 20:51 | Ultrasound Report ---
ABDOMINAL ULTRASOUND, RIGHT UPPER QUADRANT HISTORY: elevated LFTs. COMPARISON: None. FINDINGS: Pancreas: The pancreatic head and tail are obscured by overlying bowel gas. The remaining portions of the pancreas are within normal limits. Liver: The liver is echogenic consistent with fatty change. 17 cm in length. Gallbladder: No gallbladder wall thickening. The gallbladder is partially filled with sludge. CBD: 8 mm. Right kidney: No hydronephrosis. IMPRESSION: 1. Hepatic steatosis. 2. Mildly distended common bile duct measuring 8 mm. 3. The gallbladder is partially filled with sludge. No gallbladder wall thickening. ACT 112: Negative or not required by law. Electronically signed by: Jimmie Foster M.D. 11/10/2020 8:50 PM
[2020-11-10] MEDS: guaiFENesin 600 MG TABCR PO SCH (21:03)
[2020-11-11 06:07] LABS: Hematocrit (blood only) 46.8 % (42-52); Hemoglobin 15.7 g/dL (14.0-18.0); Mean Corpuscular Hgb Conc 33.5 g/dL (32-36); Mean Corpuscular Volume 89.3 fL (80-100); Mean Platelet Volume 11.9 fL (7.4-10.4); Platelet Count 143 K/uL (130-400); RDW Coefficient of Variation 15.1 % (11.5-14.5); RDW Standard Deviation 49.6 fL (36.4-46.3); Red Blood Count 5.24 M/uL (4.7-6.1); White Blood Count 16.04 K/uL (4.8-10.8)
[2020-11-11 06:45] LABS: Albumin Level 2.3 gm/dl (3.4-5.0); BUN Creatinine Ratio 34.2 (10-20); Creatinine Clr Calc Pharmacy 124.7 ml/min; Est GFR (African American) 111.3; Est GFR (Non-African American) 96.1; Magnesium 2.5 mg/dl (1.8-2.4)
[2020-11-11 06:48] LABS: Albumin Globulin Ratio 0.5 (0.9-2); Bilirubin,Total 0.9 mg/dl (0.2-1); Globulin 4.3 gm/dl (2.5-4.0); Phosphorus 2.8 mg/dl (2.5-4.9); Total Protein 6.6 gm/dl (6.4-8.2)
--- NOTE | 2020-11-11 07:35 | Hospitalist Progress Note ---
Date of Service November 11, 2020 Assessment & Plan (1) Pneumonia due to COVID-19 virus: (2) Acute respiratory failure with hypoxia: ARDS secondary to COVID-19 Went to see his PCP for a Covid test and noted to have very low saturation and was sent in the emergency room COVID-19 test came back positive Sedated with versed and fentanyl drip and intubated Required Mechanical Vent support CXR showed cardiomegaly and emphysema. Multifocal airspace consolidation is unchanged. Sputum cx grew group B strep Continue IV levaquin Continue tube feeding , swallow study ordered Continue IV dexamethasone Spiked fever and blood cx repeated - negative Afebrile since 11/07 S/P extubation on 11/07 if patient fails trial of extubation he would likely be candidate for tracheostomy Continue high flow oxygen currently Dexamethasone decreased to 6mg daily (plan for 5 days, now day 3) Continue Levaquin to complete 10 days course (Day 8) continue Nystatin rinse for thrush Now downgraded to PCU (as of 11/09) Pulmonary consulted Currently on 12L of O2 Elevated LFTs - significant increase in ALT to 350s (11/10) - Now ALT down to 230s (11/11) - No abd. pain on palpation - liver US obtained - Hepatic steatosis. Mildly distended common bile duct measuring 8 mm. The gallbladder is partially filled with sludge. No gallbladder wall thickening. - GI consulted -patient possibly passed a stone, stat MRCP ordered -Initially thought possibly d/t COVID - serologies pending - monitor LFTs (3) UTI (urinary tract infection): Urine cx grew enterococcus faecalis Already on Levaquin Continue monitor closely (4) COPD exacerbation: Mostly due to COVID 19 History of COPD and is noncompliant and continues to smoke Counseling on smoking cessation Continue IV dexamethasone, dose decreased to 6mg (5) Sleep apnea: History of sleep apnea and is noncompliant with CPAP (6) Hearing deficit: Has hearing deficit as per chart DVT prophylaxis Lovenox subcu CODE STATUS Full Disposition : downgrade to PCU Admission and Anticipated Discharge Date Admission Date: October 25, 2020 Subjective Patient seen in follow-up of hypoxic failure, ARDS, COVID-19 infection, elevated LFTs He is sitting up in bed, oxygen requirement down to 12 L , currently in PCU Currently has no complaints, says he has occasional cough No chest pain, no nausea no abdominal pain LFTs elevated and liver ultrasound obtained, concern for possible passing stone/obstructing stone, MRCP ordered by GI Patient's updated over the phone Review of Systems Review of Systems: All systems reviewed & are unremarkable except as noted in HPI & below At least ten systems reviewed and negative except as noted in the HPI. Constitutional: + fatigue; no fever and no chills Respiratory: + cough and + dyspnea (improved) Cardiovascular: no chest pain and no palpitations Gastrointestinal: no abdominal pain, no nausea and no vomiting Physical Exam Physical Exam: General: Elderly male, sitting up in the bed, A&Ox3. NAD. On 12L of O2 HEENT: Atraumatic, normocephalic. Respiratory: Decreased air entry bilaterally but no wheezes/crackles. currently on 12L of O2 Cardiac: RRR, Radial pulses intact and symmetrical. Abdomen: soft, non-tender, non-distended, obese, + bowel sounds Extremities: No lower extremity edema, patient moves extremities spontaneously Neuro: Alert and oriented, answering questions appropriately, very hard of hearing, moves extremities spontaneously Skin: warm, dry, multiple tattoos Results & Data Results & Data ([facility]) Vital Signs (Past 12 Hours) Vital Signs Temp Pulse Pulse Resp BP Pulse Ox 11/11/20 03:54 36.9 C 93 H 20 111/79 95 11/11/20 00:00 96 H 11/10/20 23:08 36.9 C 101 H 20 115/82 88 L 11/10/20 21:54 106 H 16 92 11/10/20 21:50 110 H 18 93 11/10/20 19:57 100 H 18 91 11/10/20 19:41 36.9 C 101 H 20 102/77 92 Laboratory Results 11/11/20 11/11/20 11/11/20 Range/Units 05:38 05:38 05:38 WBC 16.04 H (4.8-10.8) K/uL RBC 5.24 (4.7-6.1) M/uL Hgb 15.7 (14.0-18.0) g/dL Hct 46.8 (42-52) % MCV 89.3 (80-100) fL MCH 30.0 (25-34) pg MCHC 33.5 (32-36) g/dL RDW Std Deviation 49.6 H (36.4-46.3) fL RDW Coeff of Rian 15.1 H (11.5-14.5) % Plt Count 143 (130-400) K/uL MPV 11.9 H (7.4-10.4) fL Immature Gran % (Auto) % Neut % (Auto) % Lymph % (Auto) % [place] % (Auto) % Eos % (Auto) % Baso % (Auto) % Neut # (Auto) (1.4-6.5) K/uL Lymph # (Auto) (1.2-3.4) K/uL [place] # (Auto) (0.11-0.59) K/uL Eos # (Auto) (0-0.5) K/uL Baso # (Auto) (0-0.2) K/uL Immature Gran # (Auto) (0.00-0.02) K/uL Sodium 138 (136-145) mmol/L Potassium 4.0 (3.5-5.1) mmol/L Chloride 106 (98-107) mmol/L Carbon Dioxide 27 (21-32) mmol/L Anion Gap 5.0 (3-11) BUN 27 H (7-18) mg/dl Creatinine 0.78 (0.6-1.4) mg/dl Est Cr Clr Drug Dosing 124.7 ml/min Est GFR ( Amer) 111.3 Est GFR (Non-Af Amer) 96.1 BUN/Creatinine Ratio 34.2 H (10-20) Glucose 129 H (70-99) mg/dl POC Glucose (70-99) mg/dl Calcium 9.0 (8.5-10.1) mg/dl Phosphorus 2.8 (2.5-4.9) mg/dl Magnesium 2.5 H (1.8-2.4) mg/dl Total Bilirubin 0.9 (0.2-1) mg/dl AST 42 H (15-37) U/L ALT 235 H (12-78) U/L Alkaline Phosphatase 84 (45-117) U/L Total Protein 6.6 (6.4-8.2) gm/dl Albumin 2.3 L (3.4-5.0) gm/dl Globulin 4.3 H (2.5-4.0) gm/dl Albumin/Globulin Ratio 0.5 L (0.9-2) Lipase (73-393) U/L CMV IgM Ab EBV Capsid Ag IgG Ab Pending EBV Capsid Ag IgM Ab Pending EBV Nuclear Antigen Ab Pending EBV Antibody Interp Pending Hepatitis A IgM Ab Hepatitis A Ab Total Hep Bs Antigen Hep Bs Antibody Hep Bs Antibody, Quant Hep B Core Total Ab Parvovirus IgG Ab Index Parvovirus IgM Ab Index 11/11/20 11/11/20 11/10/20 Range/Units 05:38 05:38 20:47 WBC (4.8-10.8) K/uL RBC (4.7-6.1) M/uL Hgb (14.0-18.0) g/dL Hct (42-52) % MCV (80-100) fL MCH (25-34) pg MCHC (32-36) g/dL RDW Std Deviation (36.4-46.3) fL RDW Coeff of Rian (11.5-14.5) % Plt Count (130-400) K/uL MPV (7.4-10.4) fL Immature Gran % (Auto) % Neut % (Auto) % Lymph % (Auto) % [place] % (Auto) % Eos % (Auto) % Baso % (Auto) % Neut # (Auto) (1.4-6.5) K/uL Lymph # (Auto) (1.2-3.4) K/uL [place] # (Auto) (0.11-0.59) K/uL Eos # (Auto) (0-0.5) K/uL Baso # (Auto) (0-0.2) K/uL Immature Gran # (Auto) (0.00-0.02) K/uL Sodium (136-145) mmol/L Potassium (3.5-5.1) mmol/L Chloride (98-107) mmol/L Carbon Dioxide (21-32) mmol/L Anion Gap (3-11) BUN (7-18) mg/dl Creatinine (0.6-1.4) mg/dl Est Cr Clr Drug Dosing ml/min Est GFR ( Amer) Est GFR (Non-Af Amer) BUN/Creatinine Ratio (10-20) Glucose (70-99) mg/dl POC Glucose 121 H (70-99) mg/dl Calcium (8.5-10.1) mg/dl Phosphorus (2.5-4.9) mg/dl Magnesium (1.8-2.4) mg/dl Total Bilirubin (0.2-1) mg/dl AST (15-37) U/L ALT (12-78) U/L Alkaline Phosphatase (45-117) U/L Total Protein (6.4-8.2) gm/dl Albumin (3.4-5.0) gm/dl Globulin (2.5-4.0) gm/dl Albumin/Globulin Ratio (0.9-2) Lipase (73-393) U/L CMV IgM Ab Pending EBV Capsid Ag IgG Ab EBV Capsid Ag IgM Ab EBV Nuclear Antigen Ab EBV Antibody Interp Hepatitis A IgM Ab Pending Hepatitis A Ab Total Pending Hep Bs Antigen Pending Hep Bs Antibody Pending Hep Bs Antibody, Quant Pending Hep B Core Total Ab Pending Parvovirus IgG Ab Index Pending Parvovirus IgM Ab Index Pending 11/10/20 11/10/20 11/10/20 Range/Units 16:23 11:28 07:45 WBC (4.8-10.8) K/uL RBC (4.7-6.1) M/uL Hgb (14.0-18.0) g/dL Hct (42-52) % MCV (80-100) fL MCH (25-34) pg MCHC (32-36) g/dL RDW Std Deviation (36.4-46.3) fL RDW Coeff of Rian (11.5-14.5) % Plt Count (130-400) K/uL MPV (7.4-10.4) fL Immature Gran % (Auto) % Neut % (Auto) % Lymph % (Auto) % [place] % (Auto) % Eos % (Auto) % Baso % (Auto) % Neut # (Auto) (1.4-6.5) K/uL Lymph # (Auto) (1.2-3.4) K/uL [place] # (Auto) (0.11-0.59) K/uL Eos # (Auto) (0-0.5) K/uL Baso # (Auto) (0-0.2) K/uL Immature Gran # (Auto) (0.00-0.02) K/uL Sodium (136-145) mmol/L Potassium (3.5-5.1) mmol/L Chloride (98-107) mmol/L Carbon Dioxide (21-32) mmol/L Anion Gap (3-11) BUN (7-18) mg/dl Creatinine (0.6-1.4) mg/dl Est Cr Clr Drug Dosing ml/min Est GFR ( Amer) Est GFR (Non-Af Amer) BUN/Creatinine Ratio (10-20) Glucose (70-99) mg/dl POC Glucose 103 H 141 H 121 H (70-99) mg/dl Calcium (8.5-10.1) mg/dl Phosphorus (2.5-4.9) mg/dl Magnesium (1.8-2.4) mg/dl Total Bilirubin (0.2-1) mg/dl AST (15-37) U/L ALT (12-78) U/L Alkaline Phosphatase (45-117) U/L Total Protein (6.4-8.2) gm/dl Albumin (3.4-5.0) gm/dl Globulin (2.5-4.0) gm/dl Albumin/Globulin Ratio (0.9-2) Lipase (73-393) U/L CMV IgM Ab EBV Capsid Ag IgG Ab EBV Capsid Ag IgM Ab EBV Nuclear Antigen Ab EBV Antibody Interp Hepatitis A IgM Ab Hepatitis A Ab Total Hep Bs Antigen Hep Bs Antibody Hep Bs Antibody, Quant Hep B Core Total Ab Parvovirus IgG Ab Index Parvovirus IgM Ab Index 11/10/20 11/10/20 11/10/20 Range/Units 07:24 07:24 07:24 WBC 16.39 H (4.8-10.8) K/uL RBC 6.00 (4.7-6.1) M/uL Hgb 18.0 (14.0-18.0) g/dL Hct 53.5 H (42-52) % MCV 89.2 (80-100) fL MCH 30.0 (25-34) pg MCHC 33.6 (32-36) g/dL RDW Std Deviation 50.7 H (36.4-46.3) fL RDW Coeff of Rian 15.5 H (11.5-14.5) % Plt Count 143 (130-400) K/uL MPV 12.9 H (7.4-10.4) fL Immature Gran % (Auto) 0.4 % Neut % (Auto) 82.6 % Lymph % (Auto) 8.1 % [place] % (Auto) 8.7 % Eos % (Auto) 0.1 % Baso % (Auto) 0.1 % Neut # (Auto) 13.56 H (1.4-6.5) K/uL Lymph # (Auto) 1.33 (1.2-3.4) K/uL [place] # (Auto) 1.42 H (0.11-0.59) K/uL Eos # (Auto) 0.01 (0-0.5) K/uL Baso # (Auto) 0.01 (0-0.2) K/uL Immature Gran # (Auto) 0.06 H (0.00-0.02) K/uL Sodium 141 (136-145) mmol/L Potassium 4.2 (3.5-5.1) mmol/L Chloride 108 H (98-107) mmol/L Carbon Dioxide 29 (21-32) mmol/L Anion Gap 4.0 (3-11) BUN 38 H (7-18) mg/dl Creatinine 1.04 (0.6-1.4) mg/dl Est Cr Clr Drug Dosing 91.6 ml/min Est GFR ( Amer) 88.1 Est GFR (Non-Af Amer) 76.1 BUN/Creatinine Ratio 36.2 H (10-20) Glucose 129 H (70-99) mg/dl POC Glucose (70-99) mg/dl Calcium 9.5 (8.5-10.1) mg/dl Phosphorus 3.2 (2.5-4.9) mg/dl Magnesium 2.8 H (1.8-2.4) mg/dl Total Bilirubin 1.0 (0.2-1) mg/dl AST 86 H (15-37) U/L ALT 354 H (12-78) U/L Alkaline Phosphatase 99 (45-117) U/L Total Protein 7.5 (6.4-8.2) gm/dl Albumin 2.5 L (3.4-5.0) gm/dl Globulin 5.0 H (2.5-4.0) gm/dl Albumin/Globulin Ratio 0.5 L (0.9-2) Lipase 136 (73-393) U/L CMV IgM Ab EBV Capsid Ag IgG Ab EBV Capsid Ag IgM Ab EBV Nuclear Antigen Ab EBV Antibody Interp Hepatitis A IgM Ab Hepatitis A Ab Total Hep Bs Antigen Hep Bs Antibody Hep Bs Antibody, Quant Hep B Core Total Ab Parvovirus IgG Ab Index Parvovirus IgM Ab Index Medications Administered Current Inpatient Medications Acetaminophen (Acetaminophen 325 Mg Tab) 650 mg PO Q4H PRN PRN Reason: Pain or Fever Stop: 11/24/20 20:23 Last Admin: 11/06/20 13:56 Dose: 650 mg Documented by: Albuterol (Albut/Ipratrop 3mg/0.5mg Neb 3 Ml Vial) 3 ml NEB Q6R PRN PRN Reason: Shortness Of Breath Stop: 11/24/20 18:59 Last Admin: 10/28/20 17:38 Dose: 3 ml Documented by: Dextrose (Dextrose 50% 50 Ml Syringe) 25 - 50 ml IV UD PRN; Protocol PRN Reason: Hypoglycemia Protocol Stop: 11/25/20 09:59 Enoxaparin Sodium (Enoxaparin Inj 40 Mg/0.4 Ml Syr) 40 mg SQ Q12 CURT Stop: 12/01/20 20:59 Last Admin: 11/10/20 21:01 Dose: 40 mg Documented by: Glucagon (Glucagon For Inj 1 Mg Vial) 1 mg IM UD PRN; Protocol PRN Reason: Hypoglycemia Protocol Stop: 11/25/20 09:59 Glucose (Glucose 40% Gel 15 Gm Tube) 15 - 30 gm PO UD PRN; Protocol PRN Reason: Hypoglycemia Protocol Stop: 11/25/20 09:59 Glucose (Glucose 10 Tabs/Tube) 4 - 8 tabs PO UD PRN; Protocol PRN Reason: Hypoglycemia Protocol Stop: 11/25/20 09:59 Guaifenesin (Guaifenesin 600 Mg Tabcr) 600 mg PO Q12 CURT Stop: 12/10/20 20:59 Last Admin: 11/10/20 21:03 Dose: 600 mg Documented by: Levofloxacin/Dextrose (Levaquin/D5w) 750 mg in 150 mls @ 100 mls/hr IV DAILY@1100 CURT; Protocol Stop: 11/13/20 10:59 Last Infusion: 11/10/20 13:40 Dose: Infused Documented by: Dexamethasone 6 mg/ Syringe 1.5 mls @ 1 mls/min IV QAM CURT Stop: 11/13/20 09:02 Last Admin: 11/10/20 07:50 Dose: 1 mls/min Documented by: Insulin Aspart (Insulin Aspart 100 Units/Ml 3 Ml Pen) 0 units SC ACHS [facility] Stop: 12/09/20 16:29 Last Admin: 11/10/20 21:38 Dose: 3 units Documented by: Metoprolol Tartrate (Metoprolol Tartrate 1 Mg/Ml Vial) 2.5 mg IV Q5H PRN PRN Reason: HEART RATE OVER 110 BPM Stop: 12/09/20 16:59 Last Admin: 11/10/20 08:42 Dose: 2.5 mg Documented by: Miscellaneous (Carbohydrates For Hypoglycemia ) 15 - 30 gm PO UD PRN PRN Reason: Hypoglycemia Treatment Stop: 11/25/20 09:59 Nystatin (Nystatin Susp 500,000 U/5 Ml Udc) 5 ml PO QID [facility] Stop: 11/14/20 16:59 Last Admin: 11/10/20 21:03 Dose: 5 ml Documented by: Ondansetron HCl (Ondansetron Inj 2 Mg/Ml 2 Ml Vial) 4 mg IV Q6H PRN PRN Reason: Nausea Stop: 11/24/20 20:23 Polyethylene Glycol (Polyethylene (Miralax) 17 Gm Pack) 17 gm PO DAILY [facility] Stop: 11/28/20 10:29 Last Admin: 11/10/20 07:50 Dose: Not Given Documented by:
[2020-11-11 08:10] LABS: Hepatitis B Surface Ab Quant < 3.10 mIU/mL (>or=10mIU/mL Immune); Hepatitis B Surface Antibody Non-Immune
[2020-11-11 08:21] LABS: Hepatitis B Surf Ag Rflx Conf Neg (Neg)
--- NOTE | 2020-11-11 08:45 | Gastroenterology Progress Note ---
Date of Service November 11, 2020 Assessment & Plan (1) Elevated transaminase level: Moderate AST/ALT elevation. On initial eval yesterday thought this was an effect of the COVID virus, however, Liver US yesterday with gallstones and mild CBD dilation. LFTs improving today. This clinical picture suggests passage of biliary sludge. Choledocholithiasis needs to be ruled out. Stat MRCP ordered. (Though radiology unable to provide the service until 7PM tonight due to pt having COVID). Continue to follow LFTs daily. Will review results of MRCP when available. If current, obstructing choledocholithiasis then will need ERCP. If not obstructing then OP EUS +/- ERCP in approx one month. Admission and Anticipated Discharge Date Admission Date: October 25, 2020 Supervising Physician Co-Signing Physician Notes I performed a history and physical examination of the patient today, including specifically on physical exam - soft abdomen. I have discussed the patient's management with the advanced practitioner. Please refer to the nurse practitioner's note for the documented findings and plan of care. CBD 8 mm on sono with GB sludge. LFTs trending down. Needs MRCP. Further plan based on the results. Subjective COVID 19 (+), pneumonia tx with Levoquin, was intubated now on high flow O2. GI consulted for elevated transaminases, initially noticed to be increased approx one week after dx of COVID - remain elevated but improved today. No abd pain, nausea or vomiting. AST 42, ALT 235. Bili with slight elevation to 1.2 yesterday but otherwise Bili and Alk phos have been normal. US yesterday with dilated CBD at 8mm. Pt appears much improved (respiratory and general energy level) compared to yesterday. He agrees to MRI but is reluctant to undergo and procedures requiring anesthesia at this time. Review of Systems Review of Systems: ROS: Gen: + weakness, + fevers Eyes: No eye redness, or pain, no recent vision changes Resp: + cough, + SOB Cardio: No palpitations/irregular beats, no chest pain GI: No abdominal pain, no nausea/vomiting : Denies pain on urination Skin: No jaundice, itching or new rashes Physical Exam Constitutional: WD/WN, vitals as above + well hydrated and + obese; no acute distress Eyes: PERRL, conjunctivae normal, anicteric sclerae ENMT: external ear and nose normal, oropharynx normal Neck: trachea midline, no thyromegaly Respiratory: no cough Cardiovascular: Rate/Rhythm: regular rhythm and + tachycardic (90's) Vessels: no JVD Extremities: + edema (1+ bilat ankles) Gastrointestinal (Abdomen): Inspection/Auscultation: abdomen normal to inspection and + hypoactive bowel sounds Percussion/Palpation: abdomen soft; abdomen nontender Musculoskeletal: no cyanosis or clubbing, extremities motor strength 5/5 Skin: no rashes, warm and dry Neurologic: PERRL, EOMI, accommodation nl, no face palsy, no dysarthria Psychiatric: A+Ox3, euthymic affect Lymphatic: no cervical or axillary lymphadenopathy Results & Data ([facility]) Vital Signs (Past 12 Hours) Vital Signs Temp Pulse Pulse Resp BP Pulse Ox 11/11/20 07:52 36.8 C 91 H 23 112/75 95 11/11/20 03:54 36.9 C 93 H 20 111/79 95 11/11/20 00:00 96 H 11/10/20 23:08 36.9 C 101 H 20 115/82 88 L 11/10/20 21:54 106 H 16 92 11/10/20 21:50 110 H 18 93 Laboratory Results WBC 16, Hb 15, Hct 46, Plats 143, Na 138, K 4.0, BUN 27, Cr 0.78, glucose 129, Ma 2.5, AST 42, alt 42, Alk Phos 84. Diagnostic Findings Liver US 11/10/20: 1. Hepatic steatosis. 2. Mildly distended common bile duct measuring 8 mm. 3. The gallbladder is partially filled with sludge. No gallbladder wall thickening.
[2020-11-11] MEDS: ENOXAPARIN INJ 40 MG/0.4 ML SYR SQ SCH ×2 (08:49→21:21)
[2020-11-11] MEDS: NYSTATIN SUSP 500,000 U/5 ML UDC PO SCH ×4 (08:49→21:20)
[2020-11-11] MEDS: dexAMETHasone 6 MG in SYRINGE 0 ML IV SCH (08:49)
[2020-11-11] MEDS: POLYETHYLENE (MIRALAX) 17 GM PACK PO SCH (08:51)
[2020-11-11] MEDS: guaiFENesin 600 MG TABCR PO SCH ×2 (08:51→21:21)
[2020-11-11] MEDS: INSULIN ASPART 100 UNITS/ML 3 ML PEN SC SCH ×4 (09:11→21:33)
[2020-11-11] MEDS: levoFLOXacin/D5W 750 MG/150 ML BAG IV SCH (11:50)
--- NOTE | 2020-11-11 16:25 | Pulmonology Progress Note ---
Date of Service November 11, 2020 Assessment & Plan (1) Acute respiratory distress syndrome (ARDS) due to 2019-nCoV: 65-year-old male with prolonged intubation secondary to COVID-19 infection and ARDS now on 12 L of oxygen. Respiratory therapy is able to wean his oxygen down to 12 L and he saturating 95%. He can likely be further weaned to maintain saturations of 92 to 94%. Recommend continued ambulation as tolerated out of bed to chair. Continue to wean Decadron. Would recommend 7 days total of antibiotics for the group B strep seen in the sputum on 11/03/2020. Continue pulmonary toilet. Patient has a flutter valve and incentive spirometer. He is able to reach 2 L with the incentive spirometer. Would recommend to continue to keep the patient at a negative fluid balance. Weight loss is advised in the long-term. Would recommend compliance with CPAP. Pulmonary will sign off at this time. Please call with questions. Thank you for the consultation. (2) Sleep apnea: (3) Acute respiratory failure with hypoxia: (4) Morbid obesity due to excess calories: Admission and Anticipated Discharge Date Admission Date: October 25, 2020 Subjective Patient continues to do well today. His is at bedside. He denies any shortness of breath while sitting. He is down to 12 L of humidified oxygen. Breathing is nonlabored. Denies any chest pain, fevers or chills. He feels that every day he is improving. Review of Systems Review of Systems: All systems reviewed & are unremarkable except as noted in HPI & below Physical Exam Constitutional: WD/WN, vitals as above + obese Eyes: PERRL, conjunctivae normal, anicteric sclerae Respiratory: Diminished lung sounds at the bases. Cardiovascular: Rate/Rhythm: regular rhythm and + tachycardic Heart Sounds: no murmur Extremities: + edema Gastrointestinal (Abdomen): normal bowel sounds, soft, nontender, no hepatosplenomegaly Musculoskeletal: no cyanosis or clubbing, extremities motor strength 5/5 Skin: no rashes, warm and dry Neurologic: PERRL, EOMI, accommodation nl, no face palsy, no dysarthria Psychiatric: A+Ox3, euthymic affect Results & Data Results & Data ([facility]) Vital Signs (Past 12 Hours) Vital Signs Temp Pulse Pulse Resp BP Pulse Ox 11/11/20 16:00 104 H 11/11/20 15:27 97.9 F 109 H 20 117/82 95 11/11/20 15:09 112 H 11/11/20 11:36 98.2 F 105 H 23 121/86 91 11/11/20 10:28 84 11/11/20 07:52 98.2 F 91 H 23 112/75 95 I reviewed the vital signs, labs and imaging PG Care Time/CCT Total # of Minutes Spent Total Time Spent with Patient: Total time spent is greater than 50% in coordination of care (as documented) at patient's floor/unit and/or counseling patient: Coding Level of Care Code 12172 Subseq Hosp Care Lvl 2 Diagnoses Acute respiratory distress syndrome (ARDS) due to 2019-nCoV U07.1; J80 Sleep apnea G47.30 Acute respiratory failure with hypoxia J96.01 Morbid obesity due to excess calories E66.01
[2020-11-12] MEDS ORDERED: Nursing to Pharmacy Communication SCH ×2 (00:30→17:30)
[2020-11-12] MEDS: INSULIN ASPART 100 UNITS/ML 3 ML PEN SC SCH ×4 (06:32→22:12)
--- NOTE | 2020-11-12 07:32 | Hospitalist Progress Note ---
Date of Service November 12, 2020 Assessment & Plan (1) Pneumonia due to COVID-19 virus: (2) Acute respiratory failure with hypoxia: ARDS secondary to COVID-19 Went to see his PCP for a Covid test and noted to have very low saturation and was sent in the emergency room COVID-19 test came back positive Sedated with versed and fentanyl drip and intubated Required Mechanical Vent support CXR showed cardiomegaly and emphysema. Multifocal airspace consolidation is unchanged. Sputum cx grew group B strep Continue IV levaquin Continue tube feeding , swallow study ordered Continue IV dexamethasone Spiked fever and blood cx repeated - negative Afebrile since 11/07 S/P extubation on 11/07 if patient fails trial of extubation he would likely be candidate for tracheostomy Continue high flow oxygen currently Dexamethasone decreased to 6mg daily (plan for 5 days, now day 4) Continue Levaquin to complete 10 days course (Day 9) continue Nystatin rinse for thrush Now downgraded to PCU (as of 11/09) Pulmonary consulted Currently on 12L of O2 Elevated LFTs - significant increase in ALT to 350s (11/10) - Now ALT down to 230s (11/11) - No abd. pain on palpation - liver US obtained - Hepatic steatosis. Mildly distended common bile duct measuring 8 mm. The gallbladder is partially filled with sludge. No gallbladder wall thickening. - GI consulted -patient possibly passed a stone, stat MRCP ordered - MRCP - Normal caliber common bile duct. No filling defects within the common bile duct. Mildly distended gallbladder which is partially filled with sludge. No gallbladder wall thickening. Suggestion of pancreas divisum. Bibasilar airspace opacities are again noted. -Initially thought possibly d/t COVID - serologies pending - monitor LFTs (3) UTI (urinary tract infection): Urine cx grew enterococcus faecalis Already on Levaquin Continue monitor closely (4) COPD exacerbation: Mostly due to COVID 19 History of COPD and is noncompliant and continues to smoke Counseling on smoking cessation Continue IV dexamethasone, dose decreased to 6mg (5) Sleep apnea: History of sleep apnea and is noncompliant with CPAP (6) Hearing deficit: Has hearing deficit as per chart DVT prophylaxis Lovenox subcu CODE STATUS Full Disposition : PCU Admission and Anticipated Discharge Date Admission Date: October 25, 2020 Subjective Patient seen in follow-up of hypoxic failure, ARDS, COVID-19 infection, elevated LFTs He is sitting up in chair, oxygen requirement - 12 L , currently in PCU Currently has no complaints, says he has occasional cough No chest pain, no nausea no abdominal pain Patient's updated at the bedside today Review of Systems Review of Systems: All systems reviewed & are unremarkable except as noted in HPI & below Constitutional: no fever and no chills Respiratory: + cough and + dyspnea (improved) Cardiovascular: no chest pain and no palpitations Gastrointestinal: no abdominal pain, no nausea and no vomiting Physical Exam Physical Exam: General: Elderly male, sitting up in the bed, A&Ox3. NAD. On 12L of O2 HEENT: Atraumatic, normocephalic. Respiratory: somewhat decreased air entry bilaterally but no wheezes/crackles. currently on 12L of O2 Cardiac: RRR, Radial pulses intact and symmetrical. Abdomen: soft, non-tender, non-distended, obese, + bowel sounds Extremities: No lower extremity edema, patient moves extremities spontaneously Neuro: Alert and oriented, answering questions appropriately, very hard of hearing, moves extremities spontaneously Skin: warm, dry, multiple tattoos Results & Data Results & Data ([facility]) Vital Signs (Past 12 Hours) Vital Signs Temp Pulse Resp BP Pulse Ox 11/12/20 02:47 36.3 C L 92 H 20 118/82 93 11/11/20 21:23 36.1 C L 101 H 22 136/85 90 Laboratory Results 11/12/20 11/12/20 11/12/20 Range/Units 11:52 08:14 08:14 WBC 16.05 H (4.8-10.8) K/uL RBC 5.40 (4.7-6.1) M/uL Hgb 16.3 (14.0-18.0) g/dL Hct 49.0 (42-52) % MCV 90.7 (80-100) fL MCH 30.2 (25-34) pg MCHC 33.3 (32-36) g/dL RDW Std Deviation 49.5 H (36.4-46.3) fL RDW Coeff of Rian 14.9 H (11.5-14.5) % Plt Count 124 L (130-400) K/uL MPV 12.4 H (7.4-10.4) fL Platelet Estimate Decreased L (Normal) Sodium 145 D (136-145) mmol/L Potassium 4.3 (3.5-5.1) mmol/L Chloride 112 H (98-107) mmol/L Carbon Dioxide 30 (21-32) mmol/L Anion Gap 3.0 (3-11) BUN 21 H (7-18) mg/dl Creatinine 0.85 (0.6-1.4) mg/dl Est Cr Clr Drug Dosing 114.4 ml/min Est GFR ( Amer) 107.5 Est GFR (Non-Af Amer) 92.7 BUN/Creatinine Ratio 24.8 H (10-20) Glucose 126 H (70-99) mg/dl POC Glucose 104 H (70-99) mg/dl Calcium 9.0 (8.5-10.1) mg/dl Phosphorus 2.7 (2.5-4.9) mg/dl Magnesium 2.6 H (1.8-2.4) mg/dl Total Bilirubin 0.8 (0.2-1) mg/dl AST 25 (15-37) U/L ALT 165 H (12-78) U/L Alkaline Phosphatase 83 (45-117) U/L Total Protein 6.6 (6.4-8.2) gm/dl Albumin 2.4 L (3.4-5.0) gm/dl Globulin 4.2 H (2.5-4.0) gm/dl Albumin/Globulin Ratio 0.6 L (0.9-2) 11/12/20 11/11/20 11/11/20 Range/Units 06:27 21:20 16:31 WBC (4.8-10.8) K/uL RBC (4.7-6.1) M/uL Hgb (14.0-18.0) g/dL Hct (42-52) % MCV (80-100) fL MCH (25-34) pg MCHC (32-36) g/dL RDW Std Deviation (36.4-46.3) fL RDW Coeff of Rian (11.5-14.5) % Plt Count (130-400) K/uL MPV (7.4-10.4) fL Platelet Estimate (Normal) Sodium (136-145) mmol/L Potassium (3.5-5.1) mmol/L Chloride (98-107) mmol/L Carbon Dioxide (21-32) mmol/L Anion Gap (3-11) BUN (7-18) mg/dl Creatinine (0.6-1.4) mg/dl Est Cr Clr Drug Dosing ml/min Est GFR ( Amer) Est GFR (Non-Af Amer) BUN/Creatinine Ratio (10-20) Glucose (70-99) mg/dl POC Glucose 124 H 132 H 93 (70-99) mg/dl Calcium (8.5-10.1) mg/dl Phosphorus (2.5-4.9) mg/dl Magnesium (1.8-2.4) mg/dl Total Bilirubin (0.2-1) mg/dl AST (15-37) U/L ALT (12-78) U/L Alkaline Phosphatase (45-117) U/L Total Protein (6.4-8.2) gm/dl Albumin (3.4-5.0) gm/dl Globulin (2.5-4.0) gm/dl Albumin/Globulin Ratio (0.9-2) Medications Administered Current Inpatient Medications Acetaminophen (Acetaminophen 325 Mg Tab) 650 mg PO Q4H PRN PRN Reason: Pain or Fever Stop: 11/24/20 20:23 Last Admin: 11/06/20 13:56 Dose: 650 mg Documented by: Albuterol (Albut/Ipratrop 3mg/0.5mg Neb 3 Ml Vial) 3 ml NEB Q6R PRN PRN Reason: Shortness Of Breath Stop: 11/24/20 18:59 Last Admin: 10/28/20 17:38 Dose: 3 ml Documented by: Dextrose (Dextrose 50% 50 Ml Syringe) 25 - 50 ml IV UD PRN; Protocol PRN Reason: Hypoglycemia Protocol Stop: 11/25/20 09:59 Enoxaparin Sodium (Enoxaparin Inj 40 Mg/0.4 Ml Syr) 40 mg SQ Q12 [facility] Stop: 12/01/20 20:59 Last Admin: 11/11/20 21:21 Dose: 40 mg Documented by: Glucagon (Glucagon For Inj 1 Mg Vial) 1 mg IM UD PRN; Protocol PRN Reason: Hypoglycemia Protocol Stop: 11/25/20 09:59 Glucose (Glucose 40% Gel 15 Gm Tube) 15 - 30 gm PO UD PRN; Protocol PRN Reason: Hypoglycemia Protocol Stop: 11/25/20 09:59 Glucose (Glucose 10 Tabs/Tube) 4 - 8 tabs PO UD PRN; Protocol PRN Reason: Hypoglycemia Protocol Stop: 11/25/20 09:59 Guaifenesin (Guaifenesin 600 Mg Tabcr) 600 mg PO Q12 [facility] Stop: 12/10/20 20:59 Last Admin: 11/11/20 21:21 Dose: 600 mg Documented by: Levofloxacin/Dextrose (Levaquin/D5w) 750 mg in 150 mls @ 100 mls/hr IV DAILY@1100 [facility]T; Protocol Stop: 11/13/20 10:59 Last Infusion: 11/11/20 13:30 Dose: Infused Documented by: Dexamethasone 6 mg/ Syringe 1.5 mls @ 1 mls/min IV QAM [facility] Stop: 11/13/20 09:02 Last Admin: 11/11/20 08:49 Dose: 1 mls/min Documented by: Insulin Aspart (Insulin Aspart 100 Units/Ml 3 Ml Pen) 0 units SC Q6 [facility] Stop: 12/12/20 05:59 Last Admin: 11/12/20 06:32 Dose: Not Given Documented by: Metoprolol Tartrate (Metoprolol Tartrate 1 Mg/Ml Vial) 2.5 mg IV Q5H PRN PRN Reason: HEART RATE OVER 110 BPM Stop: 12/09/20 16:59 Last Admin: 11/10/20 08:42 Dose: 2.5 mg Documented by: Miscellaneous (Carbohydrates For Hypoglycemia ) 15 - 30 gm PO UD PRN PRN Reason: Hypoglycemia Treatment Stop: 11/25/20 09:59 Nystatin (Nystatin Susp 500,000 U/5 Ml Udc) 5 ml PO QID [facility] Stop: 11/14/20 16:59 Last Admin: 11/11/20 21:20 Dose: 5 ml Documented by: Ondansetron HCl (Ondansetron Inj 2 Mg/Ml 2 Ml Vial) 4 mg IV Q6H PRN PRN Reason: Nausea Stop: 11/24/20 20:23 Polyethylene Glycol (Polyethylene (Miralax) 17 Gm Pack) 17 gm PO DAILY [facility] Stop: 11/28/20 10:29 Last Admin: 11/11/20 08:51 Dose: Not Given Documented by:
--- NOTE | 2020-11-12 08:27 | Magnetic Resonance Report ---
MR MRCP HISTORY: Right upper quadrant pain. r/o CBD stones/obstruction TECHNIQUE: MRCP of the abdomen was performed without contrast according to standard departmental prot ocol. COMPARISON STUDY: Abdominal ultrasound 11/10/2020. FINDINGS: The common bile duct is normal in course and caliber measuring up to 2 mm in diameter. No f illing defects within the common bile duct. The main pancreatic duct is also normal in caliber. The g allbladder is mildly distended and partially filled with sludge. There are no inflammatory changes or gallbladder wall thickening. The liver, spleen, adrenal glands, and pancreas are within normal limit s. There are patchy bibasilar densities. There is suggestion of pancreas divisum. Normal adrenal glan ds. No hydronephrosis. No retroperitoneal lymphadenopathy. IMPRESSION: 1. Normal caliber common bile duct. No filling defects within the common bile duct. 2. Mildly distended gallbladder which is partially filled with sludge. No gallbladder wall thickening . 3. Suggestion of pancreas divisum. 4. Bibasilar airspace opacities are again noted. ACT 112: Negative or not required by law. Electronically signed by: Jimmie Foster M.D. 11/12/2020 8:26 AM
[2020-11-12] MEDS: ENOXAPARIN INJ 40 MG/0.4 ML SYR SQ SCH ×2 (08:37→21:35)
[2020-11-12] MEDS: guaiFENesin 600 MG TABCR PO SCH ×2 (08:38→21:36)
[2020-11-12] MEDS: NYSTATIN SUSP 500,000 U/5 ML UDC PO SCH ×4 (08:40→21:36)
[2020-11-12] MEDS: POLYETHYLENE (MIRALAX) 17 GM PACK PO SCH (08:40)
[2020-11-12 09:08] LABS: Albumin Globulin Ratio 0.6 (0.9-2); Albumin Level 2.4 gm/dl (3.4-5.0); BUN Creatinine Ratio 24.8 (10-20); Bilirubin,Total 0.8 mg/dl (0.2-1); Creatinine Clr Calc Pharmacy 114.4 ml/min; Est GFR (African American) 107.5; Est GFR (Non-African American) 92.7; Globulin 4.2 gm/dl (2.5-4.0); Hemoglobin 16.3 g/dL (14.0-18.0); Magnesium 2.6 mg/dl (1.8-2.4); Mean Corpuscular Hemoglobin 30.2 pg (25-34); Mean Corpuscular Hgb Conc 33.3 g/dL (32-36); Mean Corpuscular Volume 90.7 fL (80-100); Mean Platelet Volume 12.4 fL (7.4-10.4); Phosphorus 2.7 mg/dl (2.5-4.9); Platelet Count 124 K/uL (130-400); Platelet Estimate Decreased (Normal); Potassium 4.3 mmol/L (3.5-5.1); RDW Coefficient of Variation 14.9 % (11.5-14.5); RDW Standard Deviation 49.5 fL (36.4-46.3); Total Protein 6.6 gm/dl (6.4-8.2); White Blood Count 16.05 K/uL (4.8-10.8)
[2020-11-12] MEDS: dexAMETHasone 6 MG in SYRINGE 0 ML IV SCH (11:11)
[2020-11-12] MEDS: levoFLOXacin/D5W 750 MG/150 ML BAG IV SCH (11:11)
--- NOTE | 2020-11-13 07:14 | Hospitalist Progress Note ---
Date of Service November 13, 2020 Assessment & Plan (1) Pneumonia due to COVID-19 virus: (2) Acute respiratory failure with hypoxia: ARDS secondary to COVID-19 Went to see his PCP for a Covid test and noted to have very low saturation and was sent in the emergency room COVID-19 test came back positive Sedated with versed and fentanyl drip and intubated Required Mechanical Vent support CXR showed cardiomegaly and emphysema. Multifocal airspace consolidation is unchanged. Sputum cx grew group B strep Continue IV levaquin Continue tube feeding , swallow study ordered Continue IV dexamethasone Spiked fever and blood cx repeated - negative Afebrile since 11/07 S/P extubation on 11/07 if patient fails trial of extubation he would likely be candidate for tracheostomy Continue high flow oxygen currently Dexamethasone decreased to 6mg daily (plan for 5 days, now day 5) Continue Levaquin to complete 10 days course (Day 10) continue Nystatin rinse for thrush Downgraded to PCU (as of 11/09) Pulmonary consulted Currently on 12L of O2 Elevated LFTs - significant increase in ALT to 350s (11/10) - Now ALT down to 230s (11/11) - No abd. pain on palpation - liver US obtained - Hepatic steatosis. Mildly distended common bile duct measuring 8 mm. The gallbladder is partially filled with sludge. No gallbladder wall thickening. - GI consulted -patient possibly passed a stone, stat MRCP ordered - MRCP - Normal caliber common bile duct. No filling defects within the common bile duct. Mildly distended gallbladder which is partially filled with sludge. N o gallbladder wall thickening. Suggestion of pancreas divisum. Bibasilar airspace opacities are again noted. -Initially thought possibly d/t COVID - serologies pending - monitor LFTs Dysphagia -Speech therapy is following -Was on full liquid diet, will advance today (11/13) (3) UTI (urinary tract infection): Urine cx grew enterococcus faecalis Already on Levaquin Continue monitor closely (4) COPD exacerbation: Mostly due to COVID 19 History of COPD and is noncompliant and continues to smoke Counseling on smoking cessation Continue IV dexamethasone, dose decreased to 6mg (5) Sleep apnea: History of sleep apnea and is noncompliant with CPAP (6) Hearing deficit: Has hearing deficit as per chart DVT prophylaxis: Lovenox subcu CODE STATUS Full Disposition : PCU Admission and Anticipated Discharge Date Admission Date: October 25, 2020 Subjective Patient seen in follow-up of hypoxic failure, ARDS, COVID-19 infection, elevated LFTs He is sitting up in chair, oxygen requirement - 12 L , currently in PCU Currently has no complaints, says he has occasional cough No chest pain, no nausea no abdominal pain He is inquiring if his diet could be advanced, will check with speech therapy Review of Systems Review of Systems: All systems reviewed & are unremarkable except as noted in HPI & below At least ten systems reviewed and negative except as noted in the HPI. Constitutional: no fever and no chills Respiratory: + cough and + dyspnea (improved) Cardiovascular: no chest pain and no palpitations Gastrointestinal: no abdominal pain, no nausea and no vomiting Physical Exam Physical Exam: General: Elderly male, sitting up in the bed, A&Ox3. NAD. On 12L of O2 HEENT: Atraumatic, normocephalic. Respiratory: somewhat decreased air entry bilaterally but no wheezes/crackles. currently on 12L of O2 Cardiac: RRR, Radial pulses intact and symmetrical. Abdomen: soft, non-tender, non-distended, obese, + bowel sounds Extremities: No lower extremity edema, patient moves extremities spontaneously Neuro: Alert and oriented, answering questions appropriately, very hard of hearing, moves extremities spontaneously Skin: warm, dry, multiple tattoos Results & Data Results & Data ([facility]) Vital Signs (Past 12 Hours) Vital Signs Temp Pulse Resp BP Pulse Ox 11/13/20 04:01 36.5 C 89 18 119/88 96 11/13/20 00:08 36.7 C 86 18 120/87 93 11/12/20 21:36 36.8 C 90 129/81 95 Laboratory Results 11/13/20 11/13/20 11/13/20 Range/Units 12:06 08:08 08:08 WBC 14.28 H (4.8-10.8) K/uL RBC 5.23 (4.7-6.1) M/uL Hgb 16.3 (14.0-18.0) g/dL Hct 47.3 (42-52) % MCV 90.4 (80-100) fL MCH 31.2 (25-34) pg MCHC 34.5 (32-36) g/dL RDW Std Deviation 50.1 H (36.4-46.3) fL RDW Coeff of Rian 15.1 H (11.5-14.5) % Plt Count 138 (130-400) K/uL MPV 12.1 H (7.4-10.4) fL Sodium 139 (136-145) mmol/L Potassium 4.1 (3.5-5.1) mmol/L Chloride 105 (98-107) mmol/L Carbon Dioxide 30 (21-32) mmol/L Anion Gap 4.0 (3-11) BUN 17 (7-18) mg/dl Creatinine 0.89 (0.6-1.4) mg/dl Est Cr Clr Drug Dosing 109.3 ml/min Est GFR ( Amer) 105.5 Est GFR (Non-Af Amer) 91.0 BUN/Creatinine Ratio 19.1 (10-20) Glucose 141 H (70-99) mg/dl POC Glucose 142 H (70-99) mg/dl Calcium 8.9 (8.5-10.1) mg/dl Phosphorus 2.5 (2.5-4.9) mg/dl Magnesium 2.4 (1.8-2.4) mg/dl Total Bilirubin 0.7 (0.2-1) mg/dl AST 23 (15-37) U/L ALT 130 H (12-78) U/L Alkaline Phosphatase 83 (45-117) U/L Total Protein 6.7 (6.4-8.2) gm/dl Albumin 2.5 L (3.4-5.0) gm/dl Globulin 4.2 H (2.5-4.0) gm/dl Albumin/Globulin Ratio 0.6 L (0.9-2) 11/13/20 11/12/20 11/12/20 Range/Units 07:52 21:35 16:35 WBC (4.8-10.8) K/uL RBC (4.7-6.1) M/uL Hgb (14.0-18.0) g/dL Hct (42-52) % MCV (80-100) fL MCH (25-34) pg MCHC (32-36) g/dL RDW Std Deviation (36.4-46.3) fL RDW Coeff of Rian (11.5-14.5) % Plt Count (130-400) K/uL MPV (7.4-10.4) fL Sodium (136-145) mmol/L Potassium (3.5-5.1) mmol/L Chloride (98-107) mmol/L Carbon Dioxide (21-32) mmol/L Anion Gap (3-11) BUN (7-18) mg/dl Creatinine (0.6-1.4) mg/dl Est Cr Clr Drug Dosing ml/min Est GFR ( Amer) Est GFR (Non-Af Amer) BUN/Creatinine Ratio (10-20) Glucose (70-99) mg/dl POC Glucose 112 H 94 168 H (70-99) mg/dl Calcium (8.5-10.1) mg/dl Phosphorus (2.5-4.9) mg/dl Magnesium (1.8-2.4) mg/dl Total Bilirubin (0.2-1) mg/dl AST (15-37) U/L ALT (12-78) U/L Alkaline Phosphatase (45-117) U/L Total Protein (6.4-8.2) gm/dl Albumin (3.4-5.0) gm/dl Globulin (2.5-4.0) gm/dl Albumin/Globulin Ratio (0.9-2) Medications Administered Current Inpatient Medications Acetaminophen (Acetaminophen 325 Mg Tab) 650 mg PO Q4H PRN PRN Reason: Pain or Fever Stop: 11/24/20 20:23 Last Admin: 11/06/20 13:56 Dose: 650 mg Documented by: Albuterol (Albut/Ipratrop 3mg/0.5mg Neb 3 Ml Vial) 3 ml NEB Q6R PRN PRN Reason: Shortness Of Breath Stop: 11/24/20 18:59 Last Admin: 10/28/20 17:38 Dose: 3 ml Documented by: Dextrose (Dextrose 50% 50 Ml Syringe) 25 - 50 ml IV UD PRN; Protocol PRN Reason: Hypoglycemia Protocol Stop: 11/25/20 09:59 Enoxaparin Sodium (Enoxaparin Inj 40 Mg/0.4 Ml Syr) 40 mg SQ Q12 [facility] Stop: 12/01/20 20:59 Last Admin: 11/13/20 09:00 Dose: 40 mg Documented by: Glucagon (Glucagon For Inj 1 Mg Vial) 1 mg IM UD PRN; Protocol PRN Reason: Hypoglycemia Protocol Stop: 11/25/20 09:59 Glucose (Glucose 40% Gel 15 Gm Tube) 15 - 30 gm PO UD PRN; Protocol PRN Reason: Hypoglycemia Protocol Stop: 11/25/20 09:59 Glucose (Glucose 10 Tabs/Tube) 4 - 8 tabs PO UD PRN; Protocol PRN Reason: Hypoglycemia Protocol Stop: 11/25/20 09:59 Guaifenesin (Guaifenesin 600 Mg Tabcr) 600 mg PO Q12 [facility] Stop: 12/10/20 20:59 Last Admin: 11/13/20 09:00 Dose: 600 mg Documented by: Insulin Aspart (Insulin Aspart 100 Units/Ml 3 Ml Pen) 0 units SC ACHS [facility] Stop: 12/12/20 20:59 Last Admin: 11/13/20 12:21 Dose: Not Given Documented by: Metoprolol Tartrate (Metoprolol Tartrate 1 Mg/Ml Vial) 2.5 mg IV Q5H PRN PRN Reason: HEART RATE OVER 110 BPM Stop: 12/09/20 16:59 Last Admin: 11/10/20 08:42 Dose: 2.5 mg Documented by: Miscellaneous (Carbohydrates For Hypoglycemia ) 15 - 30 gm PO UD PRN PRN Reason: Hypoglycemia Treatment Stop: 11/25/20 09:59 Nystatin (Nystatin Susp 500,000 U/5 Ml [facility] [place] [facility]) 5 ml PO QID [facility] Stop: 11/14/20 16:59 Last Admin: 11/13/20 09:00 Dose: 5 ml Documented by: Ondansetron HCl (Ondansetron Inj 2 Mg/Ml 2 Ml Vial) 4 mg IV Q6H PRN PRN Reason: Nausea Stop: 11/24/20 20:23 Polyethylene Glycol (Polyethylene (Miralax) 17 Gm Pack) 17 gm PO DAILY [facility] Stop: 11/28/20 10:29 Last Admin: 11/13/20 10:01 Dose: Not Given Documented by:
[2020-11-13] MEDS: INSULIN ASPART 100 UNITS/ML 3 ML PEN SC SCH ×4 (08:26→20:47)
[2020-11-13 08:31] LABS: Hematocrit (blood only) 47.3 % (42-52); Hemoglobin 16.3 g/dL (14.0-18.0); Mean Corpuscular Hemoglobin 31.2 pg (25-34); Mean Corpuscular Hgb Conc 34.5 g/dL (32-36); Mean Corpuscular Volume 90.4 fL (80-100); Mean Platelet Volume 12.1 fL (7.4-10.4); Platelet Count 138 K/uL (130-400); RDW Coefficient of Variation 15.1 % (11.5-14.5); RDW Standard Deviation 50.1 fL (36.4-46.3); Red Blood Count 5.23 M/uL (4.7-6.1); White Blood Count 14.28 K/uL (4.8-10.8)
[2020-11-13 08:47] LABS: Albumin Level 2.5 gm/dl (3.4-5.0); BUN Creatinine Ratio 19.1 (10-20); Calcium 8.9 mg/dl (8.5-10.1); Creatinine Clr Calc Pharmacy 109.3 ml/min; Est GFR (African American) 105.5; Magnesium 2.4 mg/dl (1.8-2.4); Potassium 4.1 mmol/L (3.5-5.1)
[2020-11-13 08:50] LABS: Albumin Globulin Ratio 0.6 (0.9-2); Bilirubin,Total 0.7 mg/dl (0.2-1); Globulin 4.2 gm/dl (2.5-4.0); Phosphorus 2.5 mg/dl (2.5-4.9); Total Protein 6.7 gm/dl (6.4-8.2)
[2020-11-13] MEDS: NYSTATIN SUSP 500,000 U/5 ML UDC PO SCH ×4 (09:00→21:17)
[2020-11-13] MEDS: guaiFENesin 600 MG TABCR PO SCH ×2 (09:00→21:17)
[2020-11-13] MEDS: ENOXAPARIN INJ 40 MG/0.4 ML SYR SQ SCH ×2 (09:00→21:17)
[2020-11-13] MEDS: dexAMETHasone 6 MG in SYRINGE 0 ML IV SCH (09:00)
[2020-11-13] MEDS: POLYETHYLENE (MIRALAX) 17 GM PACK PO SCH (10:01)
[2020-11-14 06:26] LABS: Hematocrit (blood only) 44.6 % (42-52); Hemoglobin 15.1 g/dL (14.0-18.0); Mean Corpuscular Hemoglobin 30.6 pg (25-34); Mean Corpuscular Hgb Conc 33.9 g/dL (32-36); Mean Corpuscular Volume 90.5 fL (80-100); Mean Platelet Volume 11.8 fL (7.4-10.4); Platelet Count 138 K/uL (130-400); RDW Coefficient of Variation 15.2 % (11.5-14.5); RDW Standard Deviation 50.2 fL (36.4-46.3); Red Blood Count 4.93 M/uL (4.7-6.1); White Blood Count 13.42 K/uL (4.8-10.8)
[2020-11-14 06:58] LABS: Albumin Level 2.4 gm/dl (3.4-5.0); BUN Creatinine Ratio 21.1 (10-20); Calcium 8.3 mg/dl (8.5-10.1); Creatinine Clr Calc Pharmacy 123.1 ml/min; Est GFR (African American) 110.8; Est GFR (Non-African American) 95.6; Potassium 3.6 mmol/L (3.5-5.1)
[2020-11-14 07:00] LABS: Albumin Globulin Ratio 0.6 (0.9-2); Bilirubin,Total 0.6 mg/dl (0.2-1); Globulin 3.9 gm/dl (2.5-4.0); Total Protein 6.3 gm/dl (6.4-8.2)
--- NOTE | 2020-11-14 07:58 | Gastroenterology Progress Note ---
Date of Service November 14, 2020 Assessment & Plan (1) Elevated transaminase level: 65-year-old male admitted with COVID-19 pneumonia, treated with Levaquin, was intubated, now on 6L O2 via NC. GI consulted for elevated transaminases, and ultrasound noting dilated CBD at 8 mm and GB sludge. Subsequent MRCP was obtained, noting a normal caliber CBD, no filling defects, suggestion of pancreas divisum. LFTs continue to trend down. He is feeling much better, tolerating a regular diet with no abdominal pain today. He may have had transaminitis as a result of Covid, serologies are pending. -Recommend continuing to trend LFTs -Await serologies -Diet as tolerated - He doesn't drink ETOH, and I recommended he avoid this and other hepatotoxins -Continue supportive care for history of Covid pneumonia as per hospital team -We discussed outpatient EUS for further evaluation, however he tells me that he is not interested in that right now. Admission and Anticipated Discharge Date Admission Date: October 25, 2020 Supervising Physician Co-Signing Physician Notes Attending attestation I have seen, examined this patient, and agree with the findings and above by our mid-level provider JALEN Cano, with the following additions: Decreasing LFT's without evidence of obstruction Serologies pending Normal Function May be releated to Covid, but trendig better Follow Serologies/LFT's Will Sign off, if ALT does not normalize will require GI follow up Subjective Pt seen and examined, chart reviewed. He is feeling well today, states he is ready to go home. He is now on 6L via NC, tolerating regular breakfast. Denies any GI complaints, including abdominal pain, fever, nausea vomiting, jaundice, hematochezia or melena. Review of Systems Review of Systems: ROS: Gen: As per HPI Eyes: No icterus Resp: + cough, mild SOB Cardio: No palpitations/irregular beats, no chest pain GI: No abdominal pain, no nausea/vomiting : Denies pain on urination Skin: No jaundice, itching or new rashes Physical Exam Constitutional: WD/WN, vitals as above Respiratory: normal respiratory effort Auscultation: lungs clear to auscultation bilaterally Cardiovascular: Rate/Rhythm: regular rate and regular rhythm Gastrointestinal (Abdomen): normal bowel sounds, soft, nontender, no hepatosplenomegaly Skin: no rashes, warm and dry Psychiatric: A+Ox3, euthymic affect Results & Data ([facility]) Vital Signs (Past 12 Hours) Vital Signs Temp Pulse Resp BP Pulse Ox 11/13/20 23:00 36.9 C 89 16 115/87 90 11/13/20 20:10 36.4 C L 104 H 24 114/71 94 11/13/20 20:09 18 100 Laboratory Results 11/14/20 11/14/20 11/13/20 Range/Units 06:05 06:05 20:44 WBC 13.42 H (4.8-10.8) K/uL RBC 4.93 (4.7-6.1) M/uL Hgb 15.1 (14.0-18.0) g/dL Hct 44.6 (42-52) % MCV 90.5 (80-100) fL MCH 30.6 (25-34) pg MCHC 33.9 (32-36) g/dL RDW Std Deviation 50.2 H (36.4-46.3) fL RDW Coeff of Rian 15.2 H (11.5-14.5) % Plt Count 138 (130-400) K/uL MPV 11.8 H (7.4-10.4) fL Sodium 140 (136-145) mmol/L Potassium 3.6 (3.5-5.1) mmol/L Chloride 107 (98-107) mmol/L Carbon Dioxide 30 (21-32) mmol/L Anion Gap 3.0 (3-11) BUN 17 (7-18) mg/dl Creatinine 0.79 (0.6-1.4) mg/dl Est Cr Clr Drug Dosing 123.1 ml/min Est GFR ( Amer) 110.8 Est GFR (Non-Af Amer) 95.6 BUN/Creatinine Ratio 21.1 H (10-20) Glucose 126 H (70-99) mg/dl POC Glucose 106 H (70-99) mg/dl Calcium 8.3 L (8.5-10.1) mg/dl Phosphorus (2.5-4.9) mg/dl Magnesium (1.8-2.4) mg/dl Total Bilirubin 0.6 (0.2-1) mg/dl AST 21 (15-37) U/L ALT 105 H (12-78) U/L Alkaline Phosphatase 73 (45-117) U/L Total Protein 6.3 L (6.4-8.2) gm/dl Albumin 2.4 L (3.4-5.0) gm/dl Globulin 3.9 (2.5-4.0) gm/dl Albumin/Globulin Ratio 0.6 L (0.9-2) 11/13/20 11/13/20 11/13/20 Range/Units 16:50 12:06 08:08 WBC (4.8-10.8) K/uL RBC (4.7-6.1) M/uL Hgb (14.0-18.0) g/dL Hct (42-52) % MCV (80-100) fL MCH (25-34) pg MCHC (32-36) g/dL RDW Std Deviation (36.4-46.3) fL RDW Coeff of Rian (11.5-14.5) % Plt Count (130-400) K/uL MPV (7.4-10.4) fL Sodium 139 (136-145) mmol/L Potassium 4.1 (3.5-5.1) mmol/L Chloride 105 (98-107) mmol/L Carbon Dioxide 30 (21-32) mmol/L Anion Gap 4.0 (3-11) BUN 17 (7-18) mg/dl Creatinine 0.89 (0.6-1.4) mg/dl Est Cr Clr Drug Dosing 109.3 ml/min Est GFR ( Amer) 105.5 Est GFR (Non-Af Amer) 91.0 BUN/Creatinine Ratio 19.1 (10-20) Glucose 141 H (70-99) mg/dl POC Glucose 138 H 142 H (70-99) mg/dl Calcium 8.9 (8.5-10.1) mg/dl Phosphorus 2.5 (2.5-4.9) mg/dl Magnesium 2.4 (1.8-2.4) mg/dl Total Bilirubin 0.7 (0.2-1) mg/dl AST 23 (15-37) U/L ALT 130 H (12-78) U/L Alkaline Phosphatase 83 (45-117) U/L Total Protein 6.7 (6.4-8.2) gm/dl Albumin 2.5 L (3.4-5.0) gm/dl Globulin 4.2 H (2.5-4.0) gm/dl Albumin/Globulin Ratio 0.6 L (0.9-2) 11/13/20 11/13/20 Range/Units 08:08 07:52 WBC 14.28 H (4.8-10.8) K/uL RBC 5.23 (4.7-6.1) M/uL Hgb 16.3 (14.0-18.0) g/dL Hct 47.3 (42-52) % MCV 90.4 (80-100) fL MCH 31.2 (25-34) pg MCHC 34.5 (32-36) g/dL RDW Std Deviation 50.1 H (36.4-46.3) fL RDW Coeff of Rian 15.1 H (11.5-14.5) % Plt Count 138 (130-400) K/uL MPV 12.1 H (7.4-10.4) fL Sodium (136-145) mmol/L Potassium (3.5-5.1) mmol/L Chloride (98-107) mmol/L Carbon Dioxide (21-32) mmol/L Anion Gap (3-11) BUN (7-18) mg/dl Creatinine (0.6-1.4) mg/dl Est Cr Clr Drug Dosing ml/min Est GFR ( Amer) Est GFR (Non-Af Amer) BUN/Creatinine Ratio (10-20) Glucose (70-99) mg/dl POC Glucose 112 H (70-99) mg/dl Calcium (8.5-10.1) mg/dl Phosphorus (2.5-4.9) mg/dl Magnesium (1.8-2.4) mg/dl Total Bilirubin (0.2-1) mg/dl AST (15-37) U/L ALT (12-78) U/L Alkaline Phosphatase (45-117) U/L Total Protein (6.4-8.2) gm/dl Albumin (3.4-5.0) gm/dl Globulin (2.5-4.0) gm/dl Albumin/Globulin Ratio (0.9-2) Diagnostic Findings MRCP TECHNIQUE: MRCP of the abdomen was performed without contrast according to standard departmental protocol. COMPARISON STUDY: Abdominal ultrasound 11/10/2020. FINDINGS: The common bile duct is normal in course and caliber measuring up to 2 mm in diameter. No filling defects within the common bile duct. The main pancreatic duct is also normal in caliber. The gallbladder is mildly distended and partially filled with sludge. There are no inflammatory changes or gallbladder wall thickening. The liver, spleen, adrenal glands, and pancreas are within normal limits. There are patchy bibasilar densities. There is suggestion of pancreas divisum. Normal adrenal glands. No hydronephrosis. No retroperitoneal lymphadenopathy. IMPRESSION: 1. Normal caliber common bile duct. No filling defects within the common bile duct. 2. Mildly distended gallbladder which is partially filled with sludge. No gallbladder wall thickening. 3. Suggestion of pancreas divisum. 4. Bibasilar airspace opacities are again noted.
[2020-11-14] MEDS: POLYETHYLENE (MIRALAX) 17 GM PACK PO SCH (08:32)
[2020-11-14] MEDS: ENOXAPARIN INJ 40 MG/0.4 ML SYR SQ SCH ×2 (08:32→20:21)
[2020-11-14] MEDS: guaiFENesin 600 MG TABCR PO SCH ×2 (08:33→20:21)
[2020-11-14] MEDS: NYSTATIN SUSP 500,000 U/5 ML UDC PO SCH ×2 (08:34→12:04)
[2020-11-14] MEDS: INSULIN ASPART 100 UNITS/ML 3 ML PEN SC SCH ×4 (08:50→21:24)
[2020-11-14] MEDS ORDERED: POTASSIUM CHLORIDE CRTAB 20 MEQ TABCR PO STA (09:05)
--- NOTE | 2020-11-14 09:07 | Hospitalist Progress Note ---
Date of Service November 14, 2020 Assessment & Plan (1) Pneumonia due to COVID-19 virus: (2) Acute respiratory failure with hypoxia: ARDS secondary to COVID-19 Went to see his PCP for a Covid test and noted to have very low saturation and was sent in the emergency room COVID-19 test came back positive Sedated with versed and fentanyl drip and intubated Required Mechanical Vent support CXR showed cardiomegaly and emphysema. Multifocal airspace consolidation is unchanged. Sputum cx grew group B strep Continued IV levaquin - treatment finished Continue tubed feeding , swallow study ordered - now diet advanced, swallowing without difficulty Continue IV dexamethasone Spiked fever and blood cx repeated - negative Afebrile since 11/07 S/P extubation on 11/07 if patient fails trial of extubation he would likely be candidate for tracheostomy Continue high flow oxygen currently Dexamethasone decreased to 6mg daily (plan for 5 days)- finished Continued Levaquin to complete 10 days course - treatment finished continue Nystatin rinse for thrush Downgraded to PCU (as of 11/09) Pulmonary consulted Currently on 6L of O2 (11/14) Elevated LFTs - significant increase in ALT to 350s (11/10) - Now ALT down to 230s (11/11) - No abd. pain on palpation - liver US obtained - Hepatic steatosis. Mildly distended common bile duct measuring 8 mm. The gallbladder is partially filled with sludge. No gallbladder wall thickening. - GI consulted -patient possibly passed a stone, stat MRCP ordered - MRCP - Normal caliber common bile duct. No filling defects within the common bile duct. Mildly distended gallbladder which is partially filled with sludge. No gallbladder wall thickening. Suggestion of pancreas divisum. Bibasilar airspace opacities are again noted. -Initially thought possibly d/t COVID - serologies pending - monitor LFTs Dysphagia -Speech therapy is following -Was on full liquid diet, will advance (11/13) -Diet advanced, tolerating well, no difficulty swallowing at this time (11/14) (3) UTI (urinary tract infection): Urine cx grew enterococcus faecalis Already on Levaquin - treatment finished Continue monitor closely (4) COPD exacerbation: Mostly due to COVID 19 History of COPD and is noncompliant and continues to smoke Counseling on smoking cessation Continue IV dexamethasone, dose decreased to 6mg - finished (5) Sleep apnea: History of sleep apnea and is noncompliant with CPAP (6) Hearing deficit: Has hearing deficit as per chart DVT prophylaxis: Lovenox subcu CODE STATUS Full Disposition : PCU Admission and Anticipated Discharge Date Admission Date: October 25, 2020 Subjective Patient seen in follow-up of hypoxic failure, ARDS, COVID-19 infection, elevated LFTs He is sitting up in chair, oxygen requirement down to 6 L , currently in PCU Currently has no complaints, says he has occasional cough No chest pain, no nausea no abdominal pain His diet was advanced, and he did well with it, no difficulty swallowing, no abdominal pain Review of Systems Review of Systems: All systems reviewed & are unremarkable except as noted in HPI & below At least ten systems reviewed and negative except as noted in the HPI. Constitutional: no fever and no chills Respiratory: + cough and + dyspnea (improved) Cardiovascular: no chest pain and no palpitations Gastrointestinal: no abdominal pain, no nausea and no vomiting Physical Exam Physical Exam: General: Elderly male, sitting up in the bed, A&Ox3. NAD. On 6L of O2 HEENT: Atraumatic, normocephalic. Respiratory: somewhat decreased air entry bilaterally but no wheezes/crackles. currently on 6L of O2 Cardiac: RRR, Radial pulses intact and symmetrical. Abdomen: soft, non-tender, non-distended, obese, + bowel sounds Extremities: No lower extremity edema, patient moves extremities spontaneously Neuro: Alert and oriented, answering questions appropriately, very hard of hearing, moves extremities spontaneously Skin: warm, dry, multiple tattoos Results & Data Results & Data ([facility]) Vital Signs (Past 12 Hours) Vital Signs Temp Pulse Resp BP Pulse Ox 11/13/20 23:00 36.9 C 89 16 115/87 90 Laboratory Results 11/14/20 11/14/20 11/14/20 Range/Units 07:56 06:05 06:05 WBC 13.42 H (4.8-10.8) K/uL RBC 4.93 (4.7-6.1) M/uL Hgb 15.1 (14.0-18.0) g/dL Hct 44.6 (42-52) % MCV 90.5 (80-100) fL MCH 30.6 (25-34) pg MCHC 33.9 (32-36) g/dL RDW Std Deviation 50.2 H (36.4-46.3) fL RDW Coeff of Rian 15.2 H (11.5-14.5) % Plt Count 138 (130-400) K/uL MPV 11.8 H (7.4-10.4) fL Sodium 140 (136-145) mmol/L Potassium 3.6 (3.5-5.1) mmol/L Chloride 107 (98-107) mmol/L Carbon Dioxide 30 (21-32) mmol/L Anion Gap 3.0 (3-11) BUN 17 (7-18) mg/dl Creatinine 0.79 (0.6-1.4) mg/dl Est Cr Clr Drug Dosing 123.1 ml/min Est GFR ( Amer) 110.8 Est GFR (Non-Af Amer) 95.6 BUN/Creatinine Ratio 21.1 H (10-20) Glucose 126 H (70-99) mg/dl POC Glucose 114 H (70-99) mg/dl Calcium 8.3 L (8.5-10.1) mg/dl Total Bilirubin 0.6 (0.2-1) mg/dl AST 21 (15-37) U/L ALT 105 H (12-78) U/L Alkaline Phosphatase 73 (45-117) U/L Total Protein 6.3 L (6.4-8.2) gm/dl Albumin 2.4 L (3.4-5.0) gm/dl Globulin 3.9 (2.5-4.0) gm/dl Albumin/Globulin Ratio 0.6 L (0.9-2) 11/13/20 11/13/20 11/13/20 Range/Units 20:44 16:50 12:06 WBC (4.8-10.8) K/uL RBC (4.7-6.1) M/uL Hgb (14.0-18.0) g/dL Hct (42-52) % MCV (80-100) fL MCH (25-34) pg MCHC (32-36) g/dL RDW Std Deviation (36.4-46.3) fL RDW Coeff of Rian (11.5-14.5) % Plt Count (130-400) K/uL MPV (7.4-10.4) fL Sodium (136-145) mmol/L Potassium (3.5-5.1) mmol/L Chloride (98-107) mmol/L Carbon Dioxide (21-32) mmol/L Anion Gap (3-11) BUN (7-18) mg/dl Creatinine (0.6-1.4) mg/dl Est Cr Clr Drug Dosing ml/min Est GFR ( Amer) Est GFR (Non-Af Amer) BUN/Creatinine Ratio (10-20) Glucose (70-99) mg/dl POC Glucose 106 H 138 H 142 H (70-99) mg/dl Calcium (8.5-10.1) mg/dl Total Bilirubin (0.2-1) mg/dl AST (15-37) U/L ALT (12-78) U/L Alkaline Phosphatase (45-117) U/L Total Protein (6.4-8.2) gm/dl Albumin (3.4-5.0) gm/dl Globulin (2.5-4.0) gm/dl Albumin/Globulin Ratio (0.9-2) Medications Administered Current Inpatient Medications Acetaminophen (Acetaminophen 325 Mg Tab) 650 mg PO Q4H PRN PRN Reason: Pain or Fever Stop: 11/24/20 20:23 Last Admin: 11/06/20 13:56 Dose: 650 mg Documented by: Albuterol (Albut/Ipratrop 3mg/0.5mg Neb 3 Ml Vial) 3 ml NEB Q6R PRN PRN Reason: Shortness Of Breath Stop: 11/24/20 18:59 Last Admin: 10/28/20 17:38 Dose: 3 ml Documented by: Dextrose (Dextrose 50% 50 Ml Syringe) 25 - 50 ml IV UD PRN; Protocol PRN Reason: Hypoglycemia Protocol Stop: 11/25/20 09:59 Enoxaparin Sodium (Enoxaparin Inj 40 Mg/0.4 Ml Syr) 40 mg SQ Q12 CURT Stop: 12/01/20 20:59 Last Admin: 11/14/20 08:32 Dose: 40 mg Documented by: Glucagon (Glucagon For Inj 1 Mg Vial) 1 mg IM UD PRN; Protocol PRN Reason: Hypoglycemia Protocol Stop: 11/25/20 09:59 Glucose (Glucose 40% Gel 15 Gm Tube) 15 - 30 gm PO UD PRN; Protocol PRN Reason: Hypoglycemia Protocol Stop: 11/25/20 09:59 Glucose (Glucose 10 Tabs/Tube) 4 - 8 tabs PO UD PRN; Protocol PRN Reason: Hypoglycemia Protocol Stop: 11/25/20 09:59 Guaifenesin (Guaifenesin 600 Mg Tabcr) 600 mg PO Q12 CURT Stop: 12/10/20 20:59 Last Admin: 11/14/20 08:33 Dose: 600 mg Documented by: Insulin Aspart (Insulin Aspart 100 Units/Ml 3 Ml Pen) 0 units SC ACHS CURT Stop: 12/12/20 20:59 Last Admin: 11/14/20 08:50 Dose: 1 units Documented by: Metoprolol Tartrate (Metoprolol Tartrate 1 Mg/Ml Vial) 2.5 mg IV Q5H PRN PRN Reason: HEART RATE OVER 110 BPM Stop: 12/09/20 16:59 Last Admin: 11/10/20 08:42 Dose: 2.5 mg Documented by: Miscellaneous (Carbohydrates For Hypoglycemia ) 15 - 30 gm PO UD PRN PRN Reason: Hypoglycemia Treatment Stop: 11/25/20 09:59 Nystatin (Nystatin Susp 500,000 U/5 Ml Udc) 5 ml PO QID CURT Stop: 11/14/20 16:59 Last Admin: 11/14/20 08:34 Dose: 5 ml Documented by: Ondansetron HCl (Ondansetron Inj 2 Mg/Ml 2 Ml Vial) 4 mg IV Q6H PRN PRN Reason: Nausea Stop: 11/24/20 20:23 Polyethylene Glycol (Polyethylene (Miralax) 17 Gm Pack) 17 gm PO DAILY CURT Stop: 11/28/20 10:29 Last Admin: 11/14/20 08:32 Dose: Not Given Documented by: Potassium Chloride (Potassium Chloride Crtab 20 Meq Tabcr) 40 meq PO NOW STA Stop: 11/14/20 09:06
--- NOTE | 2020-11-15 08:10 | Hospitalist Progress Note ---
Date of Service November 15, 2020 Assessment & Plan (1) Pneumonia due to COVID-19 virus: (2) Acute respiratory failure with hypoxia: ARDS secondary to COVID-19 Went to see his PCP for a Covid test and noted to have very low saturation and was sent in the emergency room COVID-19 test came back positive Sedated with versed and fentanyl drip and intubated Required Mechanical Vent support CXR showed cardiomegaly and emphysema. Multifocal airspace consolidation is unchanged. Sputum cx grew group B strep Continued IV levaquin - treatment finished Continue tubed feeding , swallow study ordered - now diet advanced, swallowing without difficulty Continue IV dexamethasone Spiked fever and blood cx repeated - negative Afebrile since 11/07 S/P extubation on 11/07 if patient fails trial of extubation he would likely be candidate for tracheostomy Continue high flow oxygen currently Dexamethasone decreased to 6mg daily (plan for 5 days)- finished Continued Levaquin to complete 10 days course - treatment finished continue Nystatin rinse for thrush Downgraded to PCU (as of 11/09) Pulmonary consulted Currently on 6L of O2 (11/15) Elevated LFTs - significant increase in ALT to 350s (11/10) - Now ALT down to 230s (11/11) - No abd. pain on palpation - liver US obtained - Hepatic steatosis. Mildly distended common bile duct measuring 8 mm. The gallbladder is partially filled with sludge. No gallbladder wall thickening. - GI consulted -patient possibly passed a stone, stat MRCP ordered - MRCP - Normal caliber common bile duct. No filling defects within the common bile duct. Mildly distended gallbladder which is partially filled with sludge. No gallbladder wall thickening. Suggestion of pancreas divisum. Bibasilar airspace opacities are again noted. -Initially thought possibly d/t COVID - serologies pending - monitor LFTs, trending down Dysphagia -Speech therapy is following -Was on full liquid diet, will advance (11/13) -Diet advanced, tolerating well, no difficulty swallowing at this time (11/14) (3) UTI (urinary tract infection): Urine cx grew enterococcus faecalis Already on Levaquin - treatment finished Continue monitor closely (4) COPD exacerbation: Mostly due to COVID 19 History of COPD and is noncompliant and continues to smoke Counseling on smoking cessation Continue IV dexamethasone, dose decreased to 6mg - finished (5) Sleep apnea: History of sleep apnea and is noncompliant with CPAP (6) Hearing deficit: Has hearing deficit as per chart DVT prophylaxis: Lovenox subcu CODE STATUS Full Disposition : PCU Admission and Anticipated Discharge Date Admission Date: October 25, 2020 Subjective Patient seen in follow-up of hypoxic failure, ARDS, COVID-19 infection, elevated LFTs He is sitting up in chair, oxygen requirement down to 6 L , currently in PCU Currently has no complaints, says he has occasional cough No chest pain, no nausea no abdominal pain His diet was advanced, and he did well with it, no difficulty swallowing, no abdominal pain Review of Systems Review of Systems: All systems reviewed & are unremarkable except as noted in HPI & below Constitutional: no fever and no chills Respiratory: + cough and + dyspnea (improved) Cardiovascular: no chest pain and no palpitations Gastrointestinal: no abdominal pain, no nausea and no vomiting Physical Exam Physical Exam: General: Elderly male, sitting up in the bed, A&Ox3. NAD. On 6L of O2 HEENT: Atraumatic, normocephalic. Respiratory: somewhat decreased air entry bilaterally but no wheezes/crackles. currently on 6L of O2 Cardiac: RRR, Radial pulses intact and symmetrical. Abdomen: soft, non-tender, non-distended, obese, + bowel sounds Extremities: No lower extremity edema, patient moves extremities spontaneously Neuro: Alert and oriented, answering questions appropriately, very hard of hearing, moves extremities spontaneously Skin: warm, dry, multiple tattoos Results & Data Results & Data ([facility]) Vital Signs (Past 12 Hours) Vital Signs Temp Pulse Pulse Resp BP Pulse Ox 11/15/20 04:38 36.6 C 84 18 124/87 90 11/14/20 22:20 89 Laboratory Results 11/15/20 11/15/20 11/15/20 Range/Units 08:01 08:01 07:38 WBC 11.67 H (4.8-10.8) K/uL RBC 5.22 (4.7-6.1) M/uL Hgb 15.9 (14.0-18.0) g/dL Hct 46.6 (42-52) % MCV 89.3 (80-100) fL MCH 30.5 (25-34) pg MCHC 34.1 (32-36) g/dL RDW Std Deviation 49.7 H (36.4-46.3) fL RDW Coeff of Rian 15.6 H (11.5-14.5) % Plt Count 117 L (130-400) K/uL MPV 11.6 H (7.4-10.4) fL Sodium 137 (136-145) mmol/L Potassium (3.5-5.1) mmol/L Chloride 108 H (98-107) mmol/L Carbon Dioxide 25 (21-32) mmol/L Anion Gap 4.0 (3-11) BUN 13 (7-18) mg/dl Creatinine 0.77 (0.6-1.4) mg/dl Est Cr Clr Drug Dosing 125.8 ml/min Est GFR ( Amer) 111.9 Est GFR (Non-Af Amer) 96.6 BUN/Creatinine Ratio 16.6 (10-20) Glucose 106 H (70-99) mg/dl POC Glucose 126 H (70-99) mg/dl Calcium 8.8 (8.5-10.1) mg/dl Phosphorus 2.9 (2.5-4.9) mg/dl Magnesium (1.8-2.4) mg/dl Total Bilirubin 0.8 (0.2-1) mg/dl AST (15-37) U/L ALT 92 H (12-78) U/L Alkaline Phosphatase 73 (45-117) U/L Total Protein 6.5 (6.4-8.2) gm/dl Albumin 2.3 L (3.4-5.0) gm/dl Globulin 4.2 H (2.5-4.0) gm/dl Albumin/Globulin Ratio 0.5 L (0.9-2) EBV Capsid Ag IgG Ab U/mL EBV Capsid Ag IgM Ab U/mL EBV Nuclear Antigen Ab U/mL EBV Antibody Interp 11/14/20 11/14/20 11/14/20 Range/Units 20:29 16:47 11:50 WBC (4.8-10.8) K/uL RBC (4.7-6.1) M/uL Hgb (14.0-18.0) g/dL Hct (42-52) % MCV (80-100) fL MCH (25-34) pg MCHC (32-36) g/dL RDW Std Deviation (36.4-46.3) fL RDW Coeff of Rian (11.5-14.5) % Plt Count (130-400) K/uL MPV (7.4-10.4) fL Sodium (136-145) mmol/L Potassium (3.5-5.1) mmol/L Chloride (98-107) mmol/L Carbon Dioxide (21-32) mmol/L Anion Gap (3-11) BUN (7-18) mg/dl Creatinine (0.6-1.4) mg/dl Est Cr Clr Drug Dosing ml/min Est GFR ( Amer) Est GFR (Non-Af Amer) BUN/Creatinine Ratio (10-20) Glucose (70-99) mg/dl POC Glucose 99 123 H 85 (70-99) mg/dl Calcium (8.5-10.1) mg/dl Phosphorus (2.5-4.9) mg/dl Magnesium (1.8-2.4) mg/dl Total Bilirubin (0.2-1) mg/dl AST (15-37) U/L ALT (12-78) U/L Alkaline Phosphatase (45-117) U/L Total Protein (6.4-8.2) gm/dl Albumin (3.4-5.0) gm/dl Globulin (2.5-4.0) gm/dl Albumin/Globulin Ratio (0.9-2) EBV Capsid Ag IgG Ab U/mL EBV Capsid Ag IgM Ab U/mL EBV Nuclear Antigen Ab U/mL EBV Antibody Interp 11/11/20 11/09/20 Range/Units 05:38 12:34 WBC (4.8-10.8) K/uL RBC (4.7-6.1) M/uL Hgb (14.0-18.0) g/dL Hct (42-52) % MCV (80-100) fL MCH (25-34) pg MCHC (32-36) g/dL RDW Std Deviation (36.4-46.3) fL RDW Coeff of Rian (11.5-14.5) % Plt Count (130-400) K/uL MPV (7.4-10.4) fL Sodium (136-145) mmol/L Potassium (3.5-5.1) mmol/L Chloride (98-107) mmol/L Carbon Dioxide (21-32) mmol/L Anion Gap (3-11) BUN (7-18) mg/dl Creatinine (0.6-1.4) mg/dl Est Cr Clr Drug Dosing ml/min Est GFR ( Amer) Est GFR (Non-Af Amer) BUN/Creatinine Ratio (10-20) Glucose (70-99) mg/dl POC Glucose 192 H (70-99) mg/dl Calcium (8.5-10.1) mg/dl Phosphorus (2.5-4.9) mg/dl Magnesium (1.8-2.4) mg/dl Total Bilirubin (0.2-1) mg/dl AST (15-37) U/L ALT (12-78) U/L Alkaline Phosphatase (45-117) U/L Total Protein (6.4-8.2) gm/dl Albumin (3.4-5.0) gm/dl Globulin (2.5-4.0) gm/dl Albumin/Globulin Ratio (0.9-2) EBV Capsid Ag IgG Ab 632.00 H U/mL EBV Capsid Ag IgM Ab <36.00 U/mL EBV Nuclear Antigen Ab 281.00 H U/mL EBV Antibody Interp SEE NOTE Medications Administered Current Inpatient Medications Acetaminophen (Acetaminophen 325 Mg Tab) 650 mg PO Q4H PRN PRN Reason: Pain or Fever Stop: 11/24/20 20:23 Last Admin: 11/06/20 13:56 Dose: 650 mg Documented by: Albuterol (Albut/Ipratrop 3mg/0.5mg Neb 3 Ml Vial) 3 ml NEB Q6R PRN PRN Reason: Shortness Of Breath Stop: 11/24/20 18:59 Last Admin: 10/28/20 17:38 Dose: 3 ml Documented by: Dextrose (Dextrose 50% 50 Ml Syringe) 25 - 50 ml IV UD PRN; Protocol PRN Reason: Hypoglycemia Protocol Stop: 11/25/20 09:59 Enoxaparin Sodium (Enoxaparin Inj 40 Mg/0.4 Ml Syr) 40 mg SQ Q12 CURT Stop: 12/01/20 20:59 Last Admin: 11/15/20 08:42 Dose: 40 mg Documented by: Glucagon (Glucagon For Inj 1 Mg Vial) 1 mg IM UD PRN; Protocol PRN Reason: Hypoglycemia Protocol Stop: 11/25/20 09:59 Glucose (Glucose 40% Gel 15 Gm Tube) 15 - 30 gm PO UD PRN; Protocol PRN Reason: Hypoglycemia Protocol Stop: 11/25/20 09:59 Glucose (Glucose 10 Tabs/Tube) 4 - 8 tabs PO UD PRN; Protocol PRN Reason: Hypoglycemia Protocol Stop: 11/25/20 09:59 Guaifenesin (Guaifenesin 600 Mg Tabcr) 600 mg PO Q12 CURT Stop: 12/10/20 20:59 Last Admin: 11/15/20 08:42 Dose: 600 mg Documented by: Insulin Aspart (Insulin Aspart 100 Units/Ml 3 Ml Pen) 0 units SC ACHS CURT Stop: 12/12/20 20:59 Last Admin: 11/14/20 21:24 Dose: Not Given Documented by: Metoprolol Tartrate (Metoprolol Tartrate 1 Mg/Ml Vial) 2.5 mg IV Q5H PRN PRN Reason: HEART RATE OVER 110 BPM Stop: 12/09/20 16:59 Last Admin: 11/10/20 08:42 Dose: 2.5 mg Documented by: Miscellaneous (Carbohydrates For Hypoglycemia ) 15 - 30 gm PO UD PRN PRN Reason: Hypoglycemia Treatment Stop: 11/25/20 09:59 Ondansetron HCl (Ondansetron Inj 2 Mg/Ml 2 Ml Vial) 4 mg IV Q6H PRN PRN Reason: Nausea Stop: 11/24/20 20:23 Polyethylene Glycol (Polyethylene (Miralax) 17 Gm Pack) 17 gm PO DAILY CURT Stop: 11/28/20 10:29 Last Admin: 11/15/20 08:39 Dose: Not Given Documented by:
[2020-11-15 08:12] LABS: Hematocrit (blood only) 46.6 % (42-52); Hemoglobin 15.9 g/dL (14.0-18.0); Mean Corpuscular Hemoglobin 30.5 pg (25-34); Mean Corpuscular Hgb Conc 34.1 g/dL (32-36); Mean Corpuscular Volume 89.3 fL (80-100); Mean Platelet Volume 11.6 fL (7.4-10.4); Platelet Count 117 K/uL (130-400); RDW Coefficient of Variation 15.6 % (11.5-14.5); RDW Standard Deviation 49.7 fL (36.4-46.3); Red Blood Count 5.22 M/uL (4.7-6.1); White Blood Count 11.67 K/uL (4.8-10.8)
[2020-11-15 08:33] LABS: Albumin Level 2.3 gm/dl (3.4-5.0); BUN Creatinine Ratio 16.6 (10-20); Calcium 8.8 mg/dl (8.5-10.1); Creatinine Clr Calc Pharmacy 125.8 ml/min; Est GFR (African American) 111.9; Est GFR (Non-African American) 96.6
[2020-11-15] MEDS: POLYETHYLENE (MIRALAX) 17 GM PACK PO SCH (08:39)
[2020-11-15 08:42] LABS: Albumin Globulin Ratio 0.5 (0.9-2); Bilirubin,Total 0.8 mg/dl (0.2-1); Globulin 4.2 gm/dl (2.5-4.0); Phosphorus 2.9 mg/dl (2.5-4.9); Total Protein 6.5 gm/dl (6.4-8.2)
[2020-11-15] MEDS: guaiFENesin 600 MG TABCR PO SCH ×2 (08:42→20:03)
[2020-11-15] MEDS: ENOXAPARIN INJ 40 MG/0.4 ML SYR SQ SCH ×2 (08:42→20:04)
[2020-11-15 09:40] LABS: Potassium 4.4 mmol/L (3.5-5.1)
[2020-11-15 09:53] LABS: Magnesium 2.4 mg/dl (1.8-2.4)
[2020-11-15] MEDS: INSULIN ASPART 100 UNITS/ML 3 ML PEN SC SCH ×4 (11:39→19:57)
[2020-11-15 13:15] LABS: CMV IgM Antibody <30.00 AU/mL; Hepatitis A Antibody IgM NON-REACTIVE (NON-REACTIVE); Hepatitis A Antibody Total NON-REACTIVE (NON-REACTIVE); Hepatitis B Core Antibody Total NON-REACTIVE (NON-REACTIVE); Parvovirus IgG 2.1 (<0.9); Parvovirus IgM 0.2 (<0.9)
[2020-11-16 07:43] LABS: Mean Corpuscular Hemoglobin 30.4 pg (25-34); Mean Corpuscular Hgb Conc 34.1 g/dL (32-36); Mean Corpuscular Volume 89.1 fL (80-100); Mean Platelet Volume 10.7 fL (7.4-10.4); Platelet Count 171 K/uL (130-400); RDW Coefficient of Variation 15.7 % (11.5-14.5); RDW Standard Deviation 50.2 fL (36.4-46.3); Red Blood Count 4.94 M/uL (4.7-6.1); White Blood Count 12.56 K/uL (4.8-10.8)
[2020-11-16 08:28] LABS: Albumin Globulin Ratio 0.6 (0.9-2); Albumin Level 2.5 gm/dl (3.4-5.0); BUN Creatinine Ratio 13.7 (10-20); Bilirubin,Total 0.6 mg/dl (0.2-1); Creatinine Clr Calc Pharmacy 125.1 ml/min; Est GFR (African American) 111.3; Est GFR (Non-African American) 96.1; Potassium 3.7 mmol/L (3.5-5.1); Total Protein 6.5 gm/dl (6.4-8.2)
[2020-11-16] MEDS: INSULIN ASPART 100 UNITS/ML 3 ML PEN SC SCH ×4 (08:30→21:00)
[2020-11-16] MEDS: POLYETHYLENE (MIRALAX) 17 GM PACK PO SCH (08:42)
[2020-11-16] MEDS: guaiFENesin 600 MG TABCR PO SCH ×2 (08:42→21:22)
[2020-11-16] MEDS: ENOXAPARIN INJ 40 MG/0.4 ML SYR SQ SCH ×2 (08:42→21:21)
[2020-11-16] MEDS ORDERED: FUROSEMIDE 40 MG in SYRINGE 0 ML IV ONE (14:45)
--- NOTE | 2020-11-16 15:13 | Hospitalist Progress Note ---
Date of Service November 16, 2020 Assessment & Plan (1) Pneumonia due to COVID-19 virus: (2) Acute respiratory failure with hypoxia: Acute respiratory failure with hypoxia ARDS secondary to COVID-19 H/O COPD, YOBANY--on BiPAP QHS S/P Extubation on 11/07 -Chest CTA: No evidence of pulmonary emboli. Bilateral subpleural predominant groundglass and consolidative opacities suggest multifocal likely viral pneumonia. Mediastinal and hilar adenopathy is likely reactive. No pleural effusion. Emphysema. Hepatic steatosis. -Sputum culture; group B beta strep -Blood cultures negative -Completed dexamethasone, Levaquin course Appreciate critical care input Continue supplemental oxygen as needed Wean off of supplemental oxygen to keep saturation > 90% Continue IV Lasix as needed Needs 2 step prior to discharge B/L LE Edema Chronic as per patient Venous Doppler:There is no sonographic evidence of deep venous thrombosis identified in the right or left lower extremity. Lasix PRN Transaminitis -MRCP: Normal caliber common bile duct. No filling defects within the common bile duct. Mildly distended gallbladder which is partially filled with sludge. No gallbladder wall thickening. Suggestion of pancreas divisum. Bibasilar airspace opacities are again noted. -Liver USD:Hepatic steatosis. Mildly distended common bile duct measuring 8 mm. The gallbladder is partially filled with sludge. No gallbladder wall thickening. 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 (5) Sleep apnea: Noncompliant with CPAP/BiPAP (6) Hearing deficit: DVT Px: Lovenox SQ CODE STATUS Full Code Disposition: Expect to discharge home when stable Admission and Anticipated Discharge Date Admission Date: October 25, 2020 Subjective Patient is seen and examined at bedside States feeling well today Offers no complaints Has intermittent cough Eager to get discharged Denies dyspnea, chest pain, dizziness, nausea, abdominal pain Still requiring 6 L of oxygen to maintain saturations Review of Systems Review of Systems: All systems reviewed & are unremarkable except as noted in HPI & below Physical Exam Physical Exam: Physical Exam: Vitals signs as noted above General Appearance:Morbidly Obese, no apparent distress Head: normocephalic, Atraumatic Eyes: normal inspection, EOMI Neck: supple, Trachea midline Respiratory/Chest: Decreased breath sounds, CTA, No accessory muscle use Cardiovascular: S1, S2, No murmur Abdomen/GI:Soft, Non tender, Bowel sounds present Extremities/Musculoskelatal:normal inspection, + B/L LE edema Neurologic/Psych:AAOX3, grossly no focal neurological deficits Skin: normal color, warm Results & Data Results & Data ([facility]) Vital Signs (Past 12 Hours) Vital Signs Temp Pulse Pulse Resp BP Pulse Ox 11/16/20 11:00 36.7 C 94 H 18 124/60 98 11/16/20 08:00 36.6 C 100 H 20 115/69 95 11/16/20 07:29 103 H 11/16/20 04:19 36.3 C L 93 H 18 121/79 93 Laboratory Results Short CBC 11/16/20 Range/Units 07:28 WBC 12.56 H (4.8-10.8) K/uL Hgb 15.0 (14.0-18.0) g/dL Hct 44.0 (42-52) % Plt Count 171 (130-400) K/uL BMP 11/16/20 07:28 Sodium 140 Potassium 3.7 D Chloride 108 H Carbon Dioxide 28 BUN 11 Creatinine 0.78 Glucose 125 H Calcium 9.0 Liver Function 11/16/20 Range/Units 07:28 Total Bilirubin 0.6 (0.2-1) mg/dl AST 21 (15-37) U/L ALT 75 (12-78) U/L Alkaline Phosphatase 79 (45-117) U/L Albumin 2.5 L (3.4-5.0) gm/dl
[2020-11-16] MEDS: METOPROLOL TARTRATE 1 MG/ML VIAL IV PRN (17:11)
--- NOTE | 2020-11-17 07:38 | XRay Report ---
XR chest 1V portable HISTORY: 65 years-old Male Hypoxia acute hypoxia COMPARISON: Chest radiograph 11/08/2020, CTA chest 10/25/2020. TECHNIQUE: Portable AP view of the chest FINDINGS: Cardiac silhouette is mildly enlarged. Status post removal of the right-sided PICC Left hemidiaphragm atic elevation. Emphysema with chronic interstitial coarsening. Left greater than right bibasilar opa cities with suggestion of trace pleural effusions. No significant change from comparison. Degenerativ e changes of the shoulders and spine. IMPRESSION: 1. Persistent bibasilar opacities with possible trace pleural effusions. 2. Emphysema with chronic interstitial coarsening. 3. Cardiomegaly. 4. Interval removal of the right-sided PICC. ACT 112: Negative or not required by law. The above report was generated using voice recognition software. It may contain grammatical, syntax o r spelling errors. Electronically signed by: Iraj Cardenas M.D. 11/17/2020 7:37 AM
[2020-11-17 08:11] LABS: D Dimer 770 ug/L FEU (0-500)
[2020-11-17 08:16] LABS: C Reactive Protein 4.19 mg/dl (0-0.29); Ferritin 920.1 ng/ml (8-388)
[2020-11-17] MEDS: POLYETHYLENE (MIRALAX) 17 GM PACK PO SCH (08:33)
[2020-11-17] MEDS: ENOXAPARIN INJ 40 MG/0.4 ML SYR SQ SCH ×2 (08:35→20:48)
[2020-11-17] MEDS: INSULIN ASPART 100 UNITS/ML 3 ML PEN SC SCH ×4 (08:35→21:34)
[2020-11-17] MEDS: guaiFENesin 600 MG TABCR PO SCH ×2 (08:36→20:48)
[2020-11-17] MEDS: FUROSEMIDE 20 MG TAB PO SCH (09:48)
[2020-11-17] MEDS ORDERED: FUROSEMIDE 20 MG in SYRINGE 0 ML IV ONE (16:00)
--- NOTE | 2020-11-17 16:31 | Hospitalist Progress Note ---
Date of Service November 17, 2020 Assessment & Plan (1) Pneumonia due to COVID-19 virus: (2) Acute respiratory failure with hypoxia: Acute respiratory failure with hypoxia ARDS secondary to COVID-19 H/O COPD, YOBANY--on BiPAP QHS S/P Extubation on 11/07 -Chest CTA: No evidence of pulmonary emboli. Bilateral subpleural predominant groundglass and consolidative opacities suggest multifocal likely viral pneumonia. Mediastinal and hilar adenopathy is likely reactive. No pleural effusion. Emphysema. Hepatic steatosis. -Sputum culture; group B beta strep -Blood cultures negative -Completed dexamethasone, Levaquin course Appreciate critical care input Continue supplemental oxygen as needed Wean off of supplemental oxygen to keep saturation > 90% Continue IV Lasix as needed 2 step: Requires 3 liters of O2 at rest and 8 liters with activity Sinus tachycardia Asymptomatic Given persistent hypoxia, tachycardia will rule out PE, DVT CT angio, venous Doppler ordered B/L LE Edema Chronic as per patient Venous Doppler:There is no sonographic evidence of deep venous thrombosis identified in the right or left lower extremity. Lasix PRN Transaminitis -MRCP: Normal caliber common bile duct. No filling defects within the common bile duct. Mildly distended gallbladder which is partially filled with sludge. No gallbladder wall thickening. Suggestion of pancreas divisum. Bibasilar airspace opacities are again noted. -Liver USD:Hepatic steatosis. Mildly distended common bile duct measuring 8 mm. The gallbladder is partially filled with sludge. No gallbladder wall thickening. 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 (5) Sleep apnea: Noncompliant with CPAP/BiPAP (6) Hearing deficit: DVT Px: Lovenox SQ CODE STATUS Full Code Disposition: Expect to discharge home when stable Admission and Anticipated Discharge Date Admission Date: October 25, 2020 Subjective Patient is seen and examined at bedside Offers no complaints Sinus tachycardia on monitor Had 2 Step: Requires 3 L at rest and 8 L with activity Has intermittent cough Eager to get discharged Denies dyspnea, chest pain, dizziness, nausea, abdominal pain Currently saturating well on 3 to 4 L of supplemental oxygen Review of Systems Review of Systems: All systems reviewed & are unremarkable except as noted in HPI & below Physical Exam Physical Exam: Physical Exam: Vitals signs as noted above General Appearance:Morbidly Obese, no apparent distress Head: normocephalic, Atraumatic Eyes: normal inspection, EOMI Neck: supple, Trachea midline Respiratory/Chest: Decreased breath sounds, CTA, No accessory muscle use Cardiovascular: S1, S2, No murmur, +Tachycardia Abdomen/GI:Soft, Non tender, Bowel sounds present Extremities/Musculoskelatal:normal inspection, + B/L LE edema Neurologic/Psych:AAOX3, grossly no focal neurological deficits Skin: normal color, warm Results & Data Results & [facility] ([facility]) Vital Signs (Past 12 Hours) Vital Signs Temp Pulse Pulse Pulse Pulse Pulse Pulse 11/17/20 15:42 36.6 C 11/17/20 12:09 36.6 C 11/17/20 10:21 108 H 124 H 125 H 124 H 126 H 11/17/20 08:40 94 H 11/17/20 07:17 36.4 C L Pulse Pulse Pulse Pulse Pulse Resp Resp 11/17/20 15:42 114 H 20 11/17/20 12:09 113 H 19 11/17/20 10:21 128 H 120 H 120 H 114 H 18 11/17/20 08:40 11/17/20 07:17 99 H 18 Resp Resp Resp Resp Resp Resp Resp 11/17/20 15:42 11/17/20 12:09 11/17/20 10:21 21 21 21 22 24 19 21 11/17/20 08:40 11/17/20 07:17 Resp BP Pulse Ox Pulse Ox Pulse Ox Pulse Ox Pulse Ox 11/17/20 15:42 91 11/17/20 12:09 130/93 93 11/17/20 10:21 18 91 87 L 87 L 87 L 11/17/20 08:40 11/17/20 07:17 120/82 95 Pulse Ox Pulse Ox Pulse Ox Pulse Ox Pulse Ox 11/17/20 15:42 11/17/20 12:09 11/17/20 10:21 88 L 90 87 L 90 84 L 11/17/20 08:40 11/17/20 07:17
--- NOTE | 2020-11-17 16:48 | Electrocardiogram Report ---
Test Reason : Blood Pressure : / mmHG Vent. Rate : 114 BPM Atrial Rate : 114 BPM P-R Int : 176 ms QRS Dur : 130 ms QT Int : 332 ms P-R-T Axes : 052 066 017 degrees QTc Int : 457 ms Sinus tachycardia Right bundle branch block Abnormal ECG When compared with ECG of 08-NOV-2020 10:45, No significant change was found Confirmed by Tj Alicia ([id number]) on 11/17/2020 4:47:42 PM Referred By: Jorge Luis Duval Confirmed By:Parker Alicia
[2020-11-17] MEDS ORDERED: OPTIRAY 320 125ml IV ONE (19:42)
--- NOTE | 2020-11-17 19:47 | Ultrasound Report ---
BILATERAL LOWER EXTREMITY VENOUS DOPPLER CLINICAL HISTORY: Bilateral lower extremity edema. Evaluate for deep venous thrombus. Bilateral lower extremity venous Doppler ultrasound November 06, 2020. COMPARISON STUDY: No previous studies for comparison. TECHNIQUE: Sonography of the deep venous system of the bilateral lower extremities was performed. Co mpression and augmentation were evaluated. FINDINGS: The bilateral common femoral, superficial femoral and popliteal veins were compressible. A ugmentation was normal. Flow was shown within the deep calf vessels. IMPRESSION: No evidence of deep venous thrombus within the bilateral lower extremities. ACT 112: Negative or not required by law. Electronically signed by: Girma León M.D. 11/17/2020 7:46 PM
--- NOTE | 2020-11-17 20:13 | CT Scan Report ---
CT ANGIOGRAPHY OF THE CHEST, PULMONARY EMBOLUS PROTOCOL CLINICAL HISTORY: Shortness of breath. Evaluate for pulmonary embolus. COMPARISON STUDY: Chest radiograph performed earlier today. Chest CT October 25, 2020. TECHNIQUE: Following IV administration of 116 mL of Optiray-320, helical axial images of the chest we re obtained utilizing the pulmonary embolus protocol. Maximal intensity projections and sagittal and coronal reformats were viewed on an independent 3D workstation. IV contrast was administered withou t complication. Automated exposure control was utilized for the study. A dose lowering technique wa s utilized adhering to the principles of ALARA. CT DOSE: 678.00 mGy.cm FINDINGS: No pulmonary embolus is identified although this exam is significantly compromised by resp iratory motion. Evaluation of the right-sided pulmonary arteries is nearly nondiagnostic. There is no central pulmonary embolus. There is no thoracic aortic dissection. Mild cardiomegaly is noted. Media stinal and hilar lymphadenopathy shown on chest CT of October 25, 2020 has improved. Severe emphysema is noted. There is no pneumothorax or pleural effusion. Lungs are suboptimally assessed due to respirat ory motion. Groundglass opacities within the lungs shown on prior chest CT have improved. However, ex tensive left lower lobe consolidation has increased. Right lower lobe consolidation has slightly incr eased. Central airways are grossly patent. Bony thorax is unremarkable. IMPRESSION: 1. Exam significantly compromised by respiratory motion. No pulmonary embolus identified although elidia luation of the right-sided pulmonary arteries and left lower lobe pulmonary arteries is nearly nondia gnostic. 2. Increase in bibasilar consolidation, greater on the left. This favors an infectious process althou gh atelectasis could appear similar. 3. Interval decrease in ground glass opacities within the lungs since prior chest CT. 4. Severe emphysema. ACT 112: Negative or not required by law. Electronically signed by: Girma León M.D. 11/17/2020 8:12 PM
[2020-11-18 07:18] LABS: Hemoglobin 15.2 g/dL (14.0-18.0); Mean Corpuscular Hemoglobin 30.5 pg (25-34); Mean Corpuscular Hgb Conc 34.5 g/dL (32-36); Mean Corpuscular Volume 88.2 fL (80-100); Mean Platelet Volume 10.3 fL (7.4-10.4); Platelet Count 179 K/uL (130-400); RDW Coefficient of Variation 15.9 % (11.5-14.5); RDW Standard Deviation 50.6 fL (36.4-46.3); Red Blood Count 4.99 M/uL (4.7-6.1); White Blood Count 11.31 K/uL (4.8-10.8)
[2020-11-18 07:41] LABS: BUN Creatinine Ratio 16.6 (10-20); Calcium 8.5 mg/dl (8.5-10.1); Creatinine Clr Calc Pharmacy 116.7 ml/min; Est GFR (African American) 108.5; Est GFR (Non-African American) 93.6; Magnesium 2.1 mg/dl (1.8-2.4); Potassium 3.6 mmol/L (3.5-5.1)
[2020-11-18] MEDS: ENOXAPARIN INJ 40 MG/0.4 ML SYR SQ SCH (07:49)
[2020-11-18] MEDS: FUROSEMIDE 20 MG TAB PO SCH (07:49)
[2020-11-18] MEDS: POLYETHYLENE (MIRALAX) 17 GM PACK PO SCH (07:50)
[2020-11-18] MEDS: INSULIN ASPART 100 UNITS/ML 3 ML PEN SC SCH ×2 (07:52→12:17)
[2020-11-18] MEDS ORDERED: SODIUM CHLORIDE 0.65% NA SOLN 45 ML (OCEAN) PRN (08:51)
[2020-11-18] MEDS ORDERED: SODIUM CHLORIDE 0.65% NA SOLN 45 ML (OCEAN) ONE (08:54)
[2020-11-18] MEDS: guaiFENesin 600 MG TABCR PO SCH (09:33)
--- NOTE | 2020-11-18 11:19 | Hospitalist Progress Note ---
Date of Service November 18, 2020 Assessment & Plan (1) Pneumonia due to COVID-19 virus: (2) Acute respiratory failure with hypoxia: Acute respiratory failure with hypoxia ARDS secondary to COVID-19 H/O COPD, YOBANY--on BiPAP QHS S/P Extubation on 11/07 -Chest CTA: No evidence of pulmonary emboli. Bilateral subpleural predominant groundglass and consolidative opacities suggest multifocal likely viral pneumonia. Mediastinal and hilar adenopathy is likely reactive. No pleural effusion. Emphysema. Hepatic steatosis. -Sputum culture; group B beta strep -Blood cultures negative -Completed dexamethasone, Levaquin course Appreciate critical care input Continue supplemental oxygen as needed Wean off of supplemental oxygen to keep saturation > 90% Continue Lasix as needed 2 step: Requires 3 liters of O2 at rest and 8 liters with activity Continue current management Sinus tachycardia Asymptomatic Repeat CTA showed no PE Venous Doppler:No evidence of deep venous thrombus within the bilateral lower extremities. B/L LE Edema-Chronic as per patient Chronic as per patient Venous Doppler:There is no sonographic evidence of deep venous thrombosis identified in the right or left lower extremity. Lasix PRN Transaminitis -MRCP: Normal caliber common bile duct. No filling defects within the common bile duct. Mildly distended gallbladder which is partially filled with sludge. No gallbladder wall thickening. Suggestion of pancreas divisum. Bibasilar airspace opacities are again noted. -Liver USD:Hepatic steatosis. Mildly distended common bile duct measuring 8 mm. The gallbladder is partially filled with sludge. No gallbladder wall thickening. 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 tobacco use [employer] on smoking cessation (5) Sleep apnea: Noncompliant with CPAP/BiPAP (6) Hearing deficit: DVT Px: Lovenox SQ CODE STATUS Full Code Disposition: Plan to discharge home today Admission and Anticipated Discharge Date Admission Date: October 25, 2020 Subjective Patient is seen and examined at bedside Sitting in chair comfortably Sinus tachycardia-103 on monitor States feeling well Offers no complaints Denies cough dyspnea, chest pain, dizziness, nausea, abdominal pain Review of Systems Review of Systems: All systems reviewed & are unremarkable except as noted in HPI & below Physical Exam Physical Exam: Physical Exam: Vitals signs as noted above General Appearance:Morbidly Obese, no apparent distress Head: normocephalic, Atraumatic Eyes: normal inspection, EOMI Neck: supple, Trachea midline Respiratory/Chest: Decreased breath sounds, CTA, No accessory muscle use Cardiovascular: S1, S2, No murmur, +mild Tachycardia Abdomen/GI:Soft, Non tender, Bowel sounds present Extremities/Musculoskelatal:normal inspection, + B/L LE edema--Improving Neurologic/Psych:AAOX3, grossly no focal neurological deficits Skin: normal color, warm Results & Data Results & Data ([facility]) Vital Signs (Past 12 Hours) Vital Signs Temp Pulse Resp BP Pulse Ox 11/18/20 07:46 36.3 C L 107 H 20 119/76 94 11/18/20 03:53 36.2 C L 102 H 19 130/85 90 Laboratory Results Short CBC 11/18/20 Range/Units 06:58 WBC 11.31 H (4.8-10.8) K/uL Hgb 15.2 (14.0-18.0) g/dL Hct 44.0 (42-52) % Plt Count 179 (130-400) K/uL BMP 11/18/20 06:58 Sodium 140 Potassium 3.6 Chloride 107 Carbon Dioxide 29 BUN 14 Creatinine 0.83 Glucose 125 H Calcium 8.5
[2020-11-18] MEDS ORDERED: ALBUTEROL HFA 8 GM INHALER INH PRN (11:25)
--- NOTE | 2020-11-18 11:33 | Discharge Summary ---
Date of Service November 18, 2020 Admission HPI Per Admitting Provider This is a 65yo M with a PMH of COPD, YOBANY non-compliant with CPAP, HTN, tobacco use, who presents with viral symptoms x 9 days. Has had fatigue, low grade fever, chills, cough and SOB. Both patient and his underwent COVID testing earlier today that is still pending and had a Telemedicine appointment with PCP Dr. Duval earlier today. Pulse ox showed low oxygen levels and patient was directed to come to ED for further evaluation for probable Covid-19 infection. Patient has been told he has COPD in the past but does not follow with PCP regularly. Is a smoker. Has YOBANY but does not use a CPAP machine. He denies any fever and/or chills. Denies any chest pain and/or palpitation. Denies any abdominal pain and no nausea or vomiting. No numbness and or tingling involving any of the extremities and does not have any headache. He was noted to be very short of breath in the emergency room and requiring high flow nasal cannula oxygen more than 10 L to maintain saturation above 86%. He chest x-ray was suggestive of viral pneumonia/component of CHF and volume COVID- 19 test question came back positive involved with increasing C-reactive protein and D-dimer. Is awaiting CTA to rule out any thromboembolism. Admission Exam Per Admitting Provider Physical Exam Physical Exam: Lying in bed with moderate shortness of breath at rest Constitutional: well developed, well nourished, + acute distress (With shortness of breath and wheezing), + ill appearing and + obese Eyes: PERRL, conjunctivae normal, anicteric sclerae ENMT: external ear and nose normal, oropharynx normal Neck: trachea midline, no thyromegaly Respiratory: + respiratory distress, + uses accessory muscles, + cough and + tachypneic Auscultation: + diminished lung sounds, + crackles (Minimal bibasilar crackles) and + wheezes Cardiovascular: Rate/Rhythm: regular rate, regular rhythm and + tachycardic Heart Sounds: no murmur Extremities: + edema (1+ edema bilaterally) Gastrointestinal (Abdomen): Inspection/Auscultation: + abdomen distended and normal bowel sounds Percussion/Palpation: abdomen soft; abdomen nontender Musculoskeletal: No acute arthritis in any joint Neurologic: Alert, awake and oriented x3, generally weak. No focal neuro deficit Psychiatric: A+Ox3, euthymic affect Lymphatic: no cervical or axillary lymphadenopathy Principal Diagnosis Acute respiratory failure with hypoxia ARDS secondary to COVID-19 Diabetes mellitus type 2 Urinary tract infection Discharge Data Allergies Allergy/AdvReac Type Severity Reaction Status Date / Time cephalexin Allergy Severe hives / Verified 10/25/20 16:38 Throat swells Consultations 10/25/20 17:23 ED Decision to Admit Stat 10/25/20 18:53 Consult Floor Trader Routine 10/25/20 20:15 Consult Floor Trader Routine 11/10/20 08:00 Consult Pulmonology Routine 11/10/20 08:42 Consult Gastroenterology Routine Procedures Performed Chest CTA: No evidence of pulmonary emboli. Bilateral subpleural predominant groundglass and consolidative opacities suggest multifocal likely viral pneumonia. Mediastinal and hilar adenopathy is likely reactive. No pleural effusion. Emphysema. Hepatic steatosis. Venous Doppler:There is no sonographic evidence of deep venous thrombosis identified in the right or left lower extremity. Liver USD:Hepatic steatosis. Mildly distended common bile duct measuring 8 mm. The gallbladder is partially filled with sludge. No gallbladder wall thickening. Ordered Studies 10/25/20 15:51 CT angio chest PE protocol Stat 10/29/20 09:16 US point of care ultrasound Stat 11/06/20 11:31 US venous doppler LE BI Routine 11/10/20 08:38 US liver Routine 11/11/20 08:35 MR MRCP Stat 11/17/20 15:47 CT angio chest PE protocol Routine US venous doppler LE Routine Hospital Course (1) Pneumonia due to COVID-19 virus: (2) Acute respiratory failure with hypoxia: Acute respiratory failure with hypoxia ARDS secondary to COVID-19 H/O COPD, YOBANY--on BiPAP QHS S/P Extubation on 11/07 -Chest CTA: No evidence of pulmonary emboli. Bilateral subpleural predominant groundglass and consolidative opacities suggest multifocal likely viral pneumonia. Mediastinal and hilar adenopathy is likely reactive. No pleural effusion. Emphysema. Hepatic steatosis. -Sputum culture; group B beta strep -Blood cultures negative -Completed dexamethasone, Levaquin course Appreciate critical care input Continue supplemental oxygen as needed Wean off of supplemental oxygen to keep saturation > 90% Continue Lasix as needed 2 step: Requires 3 liters of O2 at rest and 8 liters with activity Continue current management Sinus tachycardia Asymptomatic Repeat CTA showed no PE Venous Doppler:No evidence of deep venous thrombus within the bilateral lower extremities. B/L LE Edema-Chronic as per patient Chronic as per patient Venous Doppler:There is no sonographic evidence of deep venous thrombosis identified in the right or left lower extremity. Lasix PRN Transaminitis -MRCP: Normal caliber common bile duct. No filling defects within the common bile duct. Mildly distended gallbladder which is partially filled with sludge. No gallbladder wall thickening. Suggestion of pancreas divisum. Bibasilar airspace opacities are again noted. -Liver USD:Hepatic steatosis. Mildly distended common bile duct measuring 8 mm. The gallbladder is partially filled with sludge. No gallbladder wall thickening. 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 (5) Sleep apnea: Noncompliant with CPAP/BiPAP (6) Hearing deficit: DVT Px: Lovenox SQ CODE STATUS Full Code Disposition: Plan to discharge home today Total Time Total Time Spent Total Time Spent (In Minutes): 48 minutes Total Time Includes: Examination of the Patient, Discharge Planning, Medication Reconciliation, Communication With Other Providers and Other Discharge Plan Discharge Items Patient Disposition: Home - Self-Care Reason For Visit: PUI, ACUTE HYPOXIC RESP FAILURE Discharge Diagnosis: Acute respiratory failure with hypoxia ARDS secondary to COVID-19 Diabetes mellitus type 2 Urinary tract infection Activity: Per Instructions section Exercise/Sports: Gradually increase as tolerated Non-emergency contact: Primary Care Provider Call non-emergency contact if: you have any medication questions, your symptoms worsen, your pain is not controlled, your pain is concerning for you and you have a fever Follow-up/Referrals: Jorge Luis Duval MD [Primary Care Provider] - (Date & Time 11/21/2020 11:20 AM Provider Jorge Luis Duval MD [facility] PLEASE NOTE THAT THIS IS A TELEVIDEO APPOINTMENT. PLEASE FOLLOW THE INSTRUCTIONS PROVIDED IN YOUR EMAIL. IF YOU HAVE ANY QUESTIONS REGARDING YOUR APPOINTMENT, PLEASE CALL ) Diet: Carb Consistent or DM2 and Heart Healthy Diet Comment: No straws, Minced and Moist Diet, Aspiration precautions at all times. Addtl Attending Provider Instructions: Follow-up with your primary care physician Dr. Duval on 11/21/2020 11:20 AM Follow up with your Development Geologist in 2-4 weeks for further management of respiratory failure and possible need for sleep study. Seek immediate medical attention if your symptoms reoccur or worsen Home Isolation COVID-19 Instructions The following information about Home Isolation is from the CDC Website: https://www.cdc.gov/coronavirus/2019-ncov/hcp/sgypvntw-yweoilt-ssgqma.html Stay home except to get medical care People who are mildly ill with COVID-19 are able to isolate at home during their illness. You should restrict activities outside your home, except for getting medical care. Do not go to work, school, or public areas. Avoid using public transportation, ride-sharing, or taxis. Separate yourself from other people and animals in your home People: As much as possible, you should stay in a specific room and away from other people in your home. Also, you should use a separate bathroom, if available. Animals: You should restrict contact with pets and other animals while you are sick with COVID-19, just like you would around other people. Although there have not been reports of pets or other animals becoming sick with COVID-19, it is still recommended that people sick with COVID-19 limit contact with animals until more information is known about the virus. When possible, have another member of your household care for your animals while you are sick. If you are sick with COVID-19, avoid contact with your pet, including petting, snuggling, being kissed or licked, and sharing food. If you must care for your pet or be around animals while you are sick, wash your hands before and after you interact with pets and wear a face mask. Call ahead before visiting your doctor If you have a medical appointment, call the healthcare provider and tell them that you have or may have COVID-19. This will help the healthcare providers office take steps to keep other people from getting infected or exposed. Wear a face mask You should wear a face mask when you are around other people (e.g., sharing a room or vehicle) or pets and before you enter a healthcare providers office. If you are not able to wear a face mask (for example, because it causes trouble breathing), then people who live with you should not stay in the same room with you, or they should wear a face mask if they enter your room. Cover your coughs and sneezes Cover your mouth and nose with a tissue when you cough or sneeze. Throw used tissues in a lined trash can. Immediately wash your hands with soap and water for at least 20 seconds or, if soap and water are not available, clean your hands with an alcohol-based hand psych rn that contains at least 60% alcohol. Clean your hands often Wash your hands often with soap and water for at least 20 seconds, especially after blowing your nose, coughing, or sneezing; going to the bathroom; and before eating or preparing food. If soap and water are not readily available, use an alcohol-based hand psych rn with at least 60% alcohol, covering all surfaces of your hands and rubbing them together until they feel dry. Soap and water are the best option if hands are visibly dirty. Avoid touching your eyes, nose, and mouth with unwashed hands. Avoid sharing personal household items You should not share dishes, drinking glasses, cups, eating utensils, towels, or bedding with other people or pets in your home. After using these items, they should be washed thoroughly with soap and water. Clean all high-touch surfaces everyday High touch surfaces include counters, tabletops, doorknobs, bathroom fixtures, toilets, phones, keyboards, tablets, and bedside tables. Also, clean any surfaces that may have blood, stool, or body fluids on them. Use a household cleaning spray or wipe, according to the label instructions. Labels contain instructions for safe and effective use of the cleaning product including precautions you should take when applying the product, such as wearing gloves and making sure you have good ventilation during use of the product. Monitor your symptoms Seek prompt medical attention if your illness is worsening (e.g., difficulty breathing).Beforeseeking care, call your healthcare provider and tell them that you have, or are being evaluated for, COVID-19. Put on a face mask before you enter the facility. These steps will help the healthcare providers office to keep other people in the office or waiting room from getting infected or exposed. Ask your healthcare provider to call the local or [facility] health department. Persons who are placed under active monitoring or facilitated self- monitoring should follow instructions provided by their local health department or occupational health professionals, as appropriate. When working with your local health department check their available hours. If you have a medical emergency and need to call 911, notify the dispatch personnel that you have, or are being evaluated for COVID-19. If possible, put on a face mask before emergency medical services arrive. Discontinuing home isolation Patients with confirmed COVID-19 should remain under home isolation precautions until the risk of secondary transmission to others is thought to be low. The decision to discontinue home isolation precautions should be made on a ghpt-bg-hqhr basis, in consultation with healthcare providers and [facility] and [facility] health departments. Coronavirus disease 2019 (COVID-19) is a virus that causes a respiratory illness. It is caused by a coronavirus called 2019 novel coronavirus (2019- nCoV). There are many types of coronavirus. Coronaviruses are a very common cause of bronchitis. They may sometimes cause lung infection(pneumonia). Symptoms can range from mild to severe respiratory illness. These viruses are also foundin some animals. COVID-19 was first found in people in [facility], in late 2019. In 2020, several cases of COVID-19 have been confirmed in the [place] Public health officials are working to find the source. How the virus spreads is not yet fully known. It may be spread through droplets of fluid that a person coughs or sneezes into the air. It may be spread if you touch a surface with virus on it, such as a handle or object, and then touch your mouth. What are the symptoms of COVID-19? Some people have no symptoms or mild symptoms. Symptoms may appear 2 to 14 days after contact with the virus. Symptoms can include: Fever Coughing Trouble breathing What are possible complications from COVID-19? In many cases, this virus can cause infection (pneumonia) in both lungs. In some cases, this can cause . How is COVID-19 diagnosed? Your healthcare provider will ask about your symptoms. He or she will also ask about your recent travel and contact with sick people. Testing for the virus is only done through the CDC. If yourhealthcare provider thinks you may have COVID- 19, he or she will work with your local health department and the CDC on testing. Follow all instructions from your healthcare provider. COVID-19 is diagnosed by: Nasal and throat swab. A cotton-tipped swab is wiped inside your nose or throat. This is done to check for viruses in your nasal mucus. Sputum culture. A small sample of mucus coughed from your lungs (sputum) is collected if you have a cough. It is checked for the virus. How is COVID-19 treated? There is currently no medicine to treat the virus. Treatment is done to help your body while it fights the virus. This is known as supportive care. Supportive care may include: Pain medicine. These include acetaminophen and ibuprofen. They are used to help ease pain and reduce fever. Bed rest. This helps your body fight the illness. For severe illness, you may need to stay in the hospital. Care during severe illness may include: IV (intravenous) fluids.These are given through a vein to help keep your body hydrated. Oxygen. Supplemental oxygen or ventilation with a breathing machine (ventilator) may be given. This is done to keep enough oxygen in your body. Are you at risk for COVID-19? If youve been to a place where people have been sick with this virus, you are at risk for infection. You are at risk if you: Recently traveled to an affected area Had contact with a sick person who recently traveled to this area Had contact with a person who was diagnosed with COVID-19 How can COVID-19 be prevented? There is no vaccine yet. The best prevention is to not have contact with the virus. The CDC advises that people should not travel to areas where there are COVID-19 outbreaks right now for any reason that is not urgent. To help prevent spreading the infection, wash your hands often, or use an alcohol-basedhand psych rn. If you are in an area with COVID-19: Wash your hands often. Or use an alcohol-based hand psych rn often. Only touch your eyes, nose, or mouth with clean hands. Dont have contact with people who are sick. Follow local instructions about being in public. For example, you may be told to not use public transport for a period of time. Stay away from markets that have live or animals. Wash your hands after touching any animals. Don't touch animals that may be sick. Dont share eating or drinking tools with sick people. Dont kiss someone who is sick. Clean surfaces often with disinfectant. If you were in an area with COVID-19 in the last 14 days: Call your healthcare provider. He or she can talk with local health staff to see what action may be needed. Follow all instructions from your provider. Take your temperature every morning and evening for at least 14 days. This is to check for fever. Keep a record of the readings. Keep watch for symptoms of the virus. Tell your provider right away if you have symptoms. If you were in an area with COVID-19 and have a fever or other symptoms: Dont panic. Keep in mind that other illnesses can cause similar symptoms. Stay away from work, school, and public places. Limit physical contact with family members. Don't kiss anyone or share eating or drinking utensils. Clean surfaces you touch with disinfectant. This is to help prevent the virus from spreading. Call your healthcare provider. Explain that you have been exposed to COVID-19 and have symptoms. Do this before going to any hospital. Wait for instructions. Keep in mind that healthcare staff may wear protective equipment such as masks, gowns, gloves, and eye protection. You may be put in a separate room. This is to prevent the possible virus from spreading. Tell the healthcare staff about recent travel. This includes local travel on public transport. Staff may need to find other people you have been in contact with. Follow all instructions the healthcare staff give you. If you have been diagnosed with COVID-19 Follow all instructions from your healthcare provider. Dont leave your home, except to get medical care. Call your healthcare providers office before going. They can prepare and give you instructions. This will help prevent the virus from spreading. Dont go to work, school, or public areas. Dont use public transport or taxis. Stay away from other people in your home. Have them wear face masks around you. Dont share household items or food. Wear a face mask if you can. This includes at home or in a medical facility. Cover your face with a tissue when you cough or sneeze. Throw the tissue away. Wash your hands. Wash your hands often. Caregivers should: Follow all instructions from healthcare staff. Wear a face mask and protective clothing as advised. Wash hands often. Keep track of the sick persons symptoms. Clean surfaces, fabrics, and laundry thoroughly. Keep other people away from the sick person. When to call your healthcare provider Call your healthcare provider: If youve recently traveled and have symptoms If you have been diagnosed with COVID-19 and your symptoms are worse To learn more To find out more about COVID-19, visit the CDC website at www.cdc.gov/coronavirus/2019-ncov/index.html. [employer] [address] [place] [address]. All rights reserved. This information is not intended as a substitute for professional medical care. Always follow your healthcare professional's instructions. This information has been adapted from [employer] Pending Studies at Discharge: No Stand-Alone Forms: [facility] [place], Smoking Cessation Medications and DC Order Prescriptions: New furosemide 20 mg Tablet 20 mg PO Q3D Qty: 30 RF: 0 albuterol sulfate [Ventolin HFA] 90 mcg/actuation Hfa Aerosol Inhaler 2 puff inhalation Q6H PRN (Reason: shortness of breath or wheezing) Qty: 1 RF: 0 metformin 850 mg tablet 850 mg PO DAILY Qty: 30 RF: 0 Continued guaifenesin 100 mg/5 mL Liquid 0 mg PO Q4H PRN (Reason: Cough) RF: 0 Discharge Orders: Discharge Order (Routine); Ordered 11/18/20 Ordered By: Placido Rivera/Other Patient Handouts: 5 Steps for Eating Healthier, A1C Admission Data Admit Date/Time: 10/25/20 17:32 Attending Provider: Placido Mercado Admit Provider: Dex Moncada Primary Care Provider: Jorge Luis Duval Other Providers: Toño Skaggs ; Daquan Townsend ; Carmencita Almeida ; Dex Moncada ; Cesar Monzon ; Antoinette Graham Other Interventions: Discharge Summary Assessment (RN) Last Done: 11/18/20 12:00
== END 2020-11-18 12:52 | disposition home or self-care (01) | DRG 207 ==
LOC: ED 14:10 → SUATTDRO 17:32 → 1E 17:32 → 2S 11-09 10:09 → 1E 11-09 10:15 → 2S 11-09 11:07